=== PATIENT | female | born 1940 | race Caucasian/White ===

== ENCOUNTER 2016-10-06 14:27 | Inpatient (IN) | payer OTHER ==
[~2016-10-06] VITALS: Ht 165.1 cm; Wt 101.3 kg
[~2016-10-06 14:27] MED LIST: LRT5 PO
--- NOTE | 2016-10-06 14:59 | EMERGENCY ROOM VISIT NOTE ---
History Report prepared by Chuck: [place] Under the Supervision of: Dr. James Coto D.O. First contact with patient: 14:35 Chief Complaint: SHORTNESS OF BREATH Stated Complaint: SOB, DISCOMFORT REF BY DR CISNEROS Nursing Triage Summary: Triage Note: pt speaks primarly austrian. 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 daughters report they will assist pt with translating. pt agrees she wants daughters to translate for her. pt daughter reports pt was recently dx with a firbroid tumor and pt has ascitis. daughter reports pt is having increasing shortness of breath over the past 3 days. History of Present Illness The patient is a 76 year old female who presents to the Emergency Room with complaints of worsening shortness of breath starting 3 days ago. She also complains of some abdominal distention. She has worsening pain and symptoms with movement. She was recently diagnosed with ascites and uterine cancer. She had some fluid drained yesterday. The patient denies cough, chest pain, or any other complaints. She has chronic lower extremity swelling. The patient primarily speaks Scottish. HPI is obtained as per family member. Source of History: family Onset: 3 days ago Position: other (global) Quality: other (shortness of breath) Timing: worsening Modifying Factors (Worsening): movement Associated Symptoms: No chest pain, No cough Review of Systems See HPI for pertinent positives & negatives. A total of 10 systems reviewed and were otherwise negative. As per family. Past Medical & Surgical Medical Problems: (1) Ascites (2) Uterine cancer Surgical Problems: (1) H/O cataract removal with insertion of prosthetic lens Family History Patient reports no known family medical history. Social History Smoking Status: Never Smoker Marital Status: Occupation Status: retired Current/Historical Medications Scheduled Cyanocobalamin (B12), 1,000 MCG PO DAILY Docusate Sodium (Colace), 1 CAP PO BID Ergocalciferol (Vitamin D 54563 Unit), 50,000 UNIT PO WK Furosemide (Lasix), 20 MG PO DIRECTED Multiple Vitamins W/ Minerals (Multivitamin Adults), 1 TAB PO DAILY Potassium Ext Rel (Klor-Con), 10 MEQ PO DIRECTED Senna (Senna Lax), 1 TAB PO BID Scheduled PRN Meloxicam (Mobic), 7.5 MG PO DAILY PRN for Pain Polyethylene Glycol 3350 (Miralax), 17 GM PO DAILY PRN for Constipation Allergies Coded Allergies: Grapefruit (Verified Allergy, Mild, RASH, 10/06/16) Physical Exam Vital Signs Date Time Temp Pulse Resp B/P Pulse Ox O2 Delivery O2 Flow Rate FiO2 10/06/16 18:00 77 18 144/73 94 Room Air 10/06/16 17:10 92 Room Air 10/06/16 16:15 91 18 130/95 92 Room Air 10/06/16 14:32 36.3 102 20 121/85 92 Room Air Physical Exam GENERAL: Patient is awake, alert, and in no acute distress. Patient is resting comfortably and showing no signs of anxiety EYES: The conjunctivae are clear. The pupils are round and reactive. EARS, NOSE, MOUTH AND THROAT: The nose is without any evidence of any deformity. Mucous membranes are moist tongue is midline NECK: The neck is nontender and supple. RESPIRATORY: Normal respiratory effort is noted there is no evidence of wheezing rhonchi or rales CARDIOVASCULAR: Regular rate and rhythm noted there no murmurs rubs or gallops normal S1 normal S2 GASTROINTESTINAL: The abdomen is moderately distended but soft. Bowel sounds are present in all quadrants. Abdomen is nontender. There is no specific guarding or rigidity noted. MUSCULOSKELETAL/EXTREMITIES: There is no evidence of gross deformity full range of motion is noted in the hips and shoulders SKIN: There is no obvious evidence of any rash. There are no petechiae, pallor or cyanosis noted. NEUROLOGIC: Patient is at baseline according to family members. Medical Decision & Procedures ER Provider Diagnostic Interpretation: X-ray results as stated below per interpretation by me and the radiologist. TWO VIEW CHEST CLINICAL HISTORY: Generalized abdominal pain. FINDINGS: PA and lateral chest radiographs are compared to study dated 09/01/2008. The heart is mildly enlarged. The pulmonary vascular structures noncongested. Chronic interstitial thickening is similar to previous. There is left basilar scarring versus atelectasis. No airspace consolidation or pleural effusion is identified. There is no pneumothorax. The skeletal structures are osteopenic. Degenerative change is seen throughout the thoracic spine. IMPRESSION: Mild cardiac enlargement with no acute cardiopulmonary abnormality. Electronically signed by: Braydon Mace M.D. 10/06/2016 3:56 PM Dictated Date/Time: 10/06/2016 3:56 PM KUB CLINICAL HISTORY: Generalized abdominal pain COMPARISON STUDY: No previous studies for comparison. FINDINGS: There is no pathologic bowel dilatation. There are no calcification suspicious for urinary tract calculi. There is a lumbar dextroscoliosis. There are moderately advanced degenerative changes within the spine. There are moderately advanced degenerative changes in the right hip. IMPRESSION: 1. No evidence of pathologic bowel dilatation 2. No urinary tract calculi identified. Electronically signed by: Juancarlos Watkins M.D. 10/06/2016 3:57 PM Dictated Date/Time: 10/06/2016 3:57 PM Laboratory Results Test 10/06/16 00:00 10/06/16 15:25 Urine Color ORANGE Urine Appearance TURBID (CLEAR) Urine pH 5.0 (4.5-7.5) Urine Specific [place] 1.031 (1.000-1.030) Urine Protein 2+ (NEG) Urine Glucose (UA) NEG (NEG) Urine Ketones TRACE (NEG) Urine Occult Blood 3+ (NEG) Urine Nitrite POS (NEG) Urine Bilirubin NEG (NEG) Urine Urobilinogen NEG (NEG) Urine Leukocyte Esterase LARGE (NEG) Urine WBC (Auto) >30 /hpf (0-5) Urine RBC (Auto) >30 /hpf (0-4) Urine Hyaline Casts (Auto) 10-30 /lpf (0-5) Urine Epithelial Cells (Auto) >30 /lpf (0-5) Urine Bacteria (Auto) 1+ (NEG) Urine Crystals CALCIUM OXALATE (NONE Urine Pathogenic Casts 0-3 GRANULAR CASTS /lpf (0) Urine Yeast (Auto) PRESENT (NONE PRSENT) Immature Granulocyte % (Auto) 0.4 % White Blood Count 9.65 K/uL (4.8-10.8) Red Blood Count 5.08 M/uL (4.2-5.4) Hemoglobin 14.6 g/dL (12.0-16.0) Hematocrit 42.2 % (37-47) Mean Corpuscular Volume 83.1 fL (80-100) Mean Corpuscular Hemoglobin 28.7 pg (25-34) Mean Corpuscular Hemoglobin Concent 34.6 g/dl (32-36) Platelet Count 236 K/uL (130-400) Mean Platelet Volume 11.0 fL (7.4-10.4) Neutrophils (%) (Auto) 84.8 % Lymphocytes (%) (Auto) 8.9 % Monocytes (%) (Auto) 5.8 % Eosinophils (%) (Auto) 0.0 % Basophils (%) (Auto) 0.1 % Neutrophils # (Auto) 8.18 K/uL (1.4-6.5) Lymphocytes # (Auto) 0.86 K/uL (1.2-3.4) Monocytes # (Auto) 0.56 K/uL (0.11-0.59) Eosinophils # (Auto) 0.00 K/uL (0-0.5) Basophils # (Auto) 0.01 K/uL (0-0.2) Immature Granulocyte # (Auto) 0.04 K/uL (0.00-0.02) Prothrombin Time 10.7 SECONDS (9.0-12.0) Prothromb Time International Ratio 1.0 (0.9-1.1) Activated Partial Thromboplast Time 27.5 SECONDS (21.0-31.0) Partial Thromboplastin Ratio 1.1 Total Bilirubin 0.8 mg/dl (0.2-1) Direct Bilirubin 0.1 mg/dl (0-0.2) Aspartate Amino Transf (AST/SGOT) 14 U/L (15-37) Alanine Aminotransferase (ALT/SGPT) 21 U/L (12-78) Alkaline Phosphatase 87 U/L (45-117) Total Creatine Kinase 55 U/L (26-192) Creatine Kinase MB 1.8 ng/ml (0.5-3.6) Creatine Kinase MB Ratio 3.3 (0-3.0) Troponin I < 0.015 ng/ml (0-0.045) Total Protein 7.6 gm/dl (6.4-8.2) Albumin 3.5 gm/dl (3.4-5.0) Lipase 174 U/L (73-393) Laboratory results per my review. Medications Administered Medications (Trade) Dose Ordered Sig/Graciela Route Start Time Stop Time Status Last Admin Dose Admin Ceftriaxone Sodium (Rocephin Inj) 1 gm NOW STAT IV 10/06/16 16:37 10/06/16 16:38 DC 10/06/16 17:23 1 GM ECG Indication: SOB/dyspnea Rate (beats per minute): 93 Rhythm: normal sinus Findings: no ectopy, other (No acute ST segment abnormalities) Comparison ECG Date: September 01, 2008 Change: no significant change ED Course 1435: The patient was evaluated in room C01B. A complete history and physical examination were performed. 1637: Rocephin Inj 1 gm IV 1649: Upon reevaluation, the patient is resting comfortably. I discussed results and treatment plan with her. She verbalizes agreement and understanding. I spoke with Marissa Ingram PA-C of the [facility]. The patient will be evaluated for further management and care. Medical Decision Prior records/ancillary studies reviewed. Triage Nursing notes reviewed. History obtained from the family. The patient's history was concerning for respiratory difficulties. Differential diagnosis: Etiologies such as infections, reactive airway disease, pneumonia, pneumothorax , COPD, CHF, cardiac ischemia, pulmonary embolism, musculoskeletal, gastrointestinal, as well as others were entertained. The patient is a 76-year-old female who presented to the emergency department for an evaluation of abdominal discomfort. The patient has had slowly worsening ascites. This is felt to be due to a malignant uterine cancer with spread to the liver possibly. The patient had a diagnostic paracentesis recently but still remains in significant discomfort because of the abdominal size. The patient was also found have signs of urinary tract infection. She was sent to the emergency department by her primary care physician for possible admission and further management of this ascites. I discussed the patient's laboratory and radiographic studies with her and her family. I also discussed his case with the on-call [facility] hospitalist group. They have agreed to evaluate the patient in the emergency department for further management and disposition. Consults Time Called: 1647 Consulting Physician: Marissa Ingram PA-C of the [facility] Returned Call: 1648 I spoke with Marissa Ingram PA-C of the [facility]. Impression Primary Impression: Ascites Additional Impressions: Abdominal pain SOB (shortness of breath) UTI (urinary tract infection) Scribe Attestation The scribe's documentation has been prepared under my direction and personally reviewed by me in its entirety. I confirm that the note above accurately reflects all work, treatment, procedures, and medical decision making performed by me. Departure Information Dispostion Being Evaluated By Hospitalist Referrals Nelda Cisneros M.D. (PCP) Patient Instructions My [facility] Problem Qualifiers Primary Impression: Ascites Ascites type: malignant Qualified Codes: R18.0 - Malignant ascites Additional Impressions: Abdominal pain Abdominal location: generalized Qualified Codes: R10.84 - Generalized abdominal pain UTI (urinary tract infection) Urinary tract infection type: site unspecified Hematuria presence: without hematuria Qualified Codes: N39.0 - Urinary tract infection, site not specified
[2016-10-06 15:42] LABS: BASO % 0.1 %; BASO ABS # 0.01 K/uL (0-0.2); COMPLETE YES; HEMATOCRIT 42.2 % (37-47); IG% 0.4 %; LYMPH % 8.9 %; LYMPH ABS # 0.86 K/uL (1.2-3.4); MEAN CELL VOLUME 83.1 fL (80-100); MEAN CORPUSCULAR HEMOGLOBIN 28.7 pg (25-34); MEAN CORPUSCULAR HGB CONC 34.6 g/dl (32-36); MONO % 5.8 %; NEUT % 84.8 %; PLATELET COUNT 236 K/uL (130-400); RED BLOOD COUNT 5.08 M/uL (4.2-5.4); WHITE BLOOD COUNT 9.65 K/uL (4.8-10.8)
[2016-10-06 15:57] LABS: URINE APPEARANCE TURBID (CLEAR); URINE COLOR ORANGE; URINE EPITHELIAL CELL AUTO >30 /lpf (0-5); URINE NITRITE POS (NEG); URINE SPECIFIC GRAVITY 1.031 (1.000-1.030); UROBILINOGEN NEG (NEG)
[2016-10-06 15:57] LABS: PARTIAL THROMBOPLASTIN RATIO 1.1; PROTHROMBIN TIME (PATIENT) 10.7 SECONDS (9.0-12.0)
--- NOTE | 2016-10-06 15:58 | DIAGNOSTIC IMAGING REPORT ---
TWO VIEW CHEST CLINICAL HISTORY: Generalized abdominal pain. FINDINGS: PA and lateral chest radiographs are compared to study dated 09/01/2008. The heart is mildly enlarged. The pulmonary vascular structures noncongested. Chronic interstitial thickening is similar to previous. There is left basilar scarring versus atelectasis. No airspace consolidation or pleural effusion is identified. There is no pneumothorax. The skeletal structures are osteopenic. Degenerative change is seen throughout the thoracic spine. IMPRESSION: Mild cardiac enlargement with no acute cardiopulmonary abnormality. Electronically signed by: Braydon Mace M.D. 10/06/2016 3:56 PM Dictated Date/Time: 10/06/2016 3:56 PM
[2016-10-06 15:59] LABS: ALT/SGPT 21 U/L (12-78); BLOOD UREA NITROGEN 15 mg/dl (7-18); CALCIUM 9.1 mg/dl (8.5-10.1); CARBON DIOXIDE 22 mmol/L (21-32); CHLORIDE 108 mmol/L (98-107); GLUCOSE 122 mg/dl (70-99); POTASSIUM 3.9 mmol/L (3.5-5.1); SODIUM 140 mmol/L (136-145)
--- NOTE | 2016-10-06 15:59 | DIAGNOSTIC IMAGING REPORT ---
KUB CLINICAL HISTORY: Generalized abdominal pain COMPARISON STUDY: No previous studies for comparison. FINDINGS: There is no pathologic bowel dilatation. There are no calcification suspicious for urinary tract calculi. There is a lumbar dextroscoliosis. There are moderately advanced degenerative changes within the spine. There are moderately advanced degenerative changes in the right hip. IMPRESSION: 1. No evidence of pathologic bowel dilatation 2. No urinary tract calculi identified. Electronically signed by: Juancarlos Watkins M.D. 10/06/2016 3:57 PM Dictated Date/Time: 10/06/2016 3:57 PM
[2016-10-06 16:04] LABS: ALKALINE PHOSPHATASE 87 U/L (45-117); AST/SGOT 14 U/L (15-37); CKMB/CK RATIO 3.3 (0-3.0)
[2016-10-06] MEDS ORDERED: FURO-85 PO (16:05)
[2016-10-06] MEDS ORDERED: POTA20TA16 PO (16:05)
[2016-10-06] MEDS ORDERED: ERGO500037 PO (16:05)
[2016-10-06 16:23] LABS: MANUAL MICROSCOPIC REQUIRED? NO; REVIEW REQ? YES; URINE BILIRUBIN NEG (NEG)
[2016-10-06 16:24] LABS: URINE PATH CASTS 0-3 GRANULAR CASTS /lpf (0)
[2016-10-06] MEDS ORDERED: CEFTRIAXONE SOD INJ 1 GM ADDVIAL IV STA (16:37)
[2016-10-06 17:10] VITALS: O2SAT 92; Ht 165.1 cm; Wt 101.3 kg
[2016-10-06] MEDS ORDERED: OXYCODONE/ACETAMINOPHEN 5-325 TAB PO PRN (18:15)
[2016-10-06] MEDS ORDERED: SODIUM CHLORIDE 0.9% 1000ML 1,000 ML IV SCH (18:15)
[2016-10-06] MEDS ORDERED: ACETAMINOPHEN 325 MG TAB PO PRN (18:15)
[2016-10-06] MEDS ORDERED: ONDANSETRON INJ 2 MG/ML 2 ML VIAL IV PRN (18:15)
[2016-10-06] MEDS ORDERED: MoRPHine SULFATE 4 MG/ML 1 ML CARP\\VIAL IV PRN (18:15)
[2016-10-06] MEDS ORDERED: MULT-922 PO (18:40)
[2016-10-06] MEDS ORDERED: DOCU-94 PO ×2 (18:40→18:42)
[2016-10-06] MEDS ORDERED: MELO15TA4 PO (18:40)
[2016-10-06] MEDS ORDERED: CYAN100073 PO (18:40)
[2016-10-06] MEDS ORDERED: SNK PO (18:40)
[2016-10-06] MEDS ORDERED: POLY335025 PO (18:40)
--- NOTE | 2016-10-06 18:43 | History and Physical ---
History & Physical Date & Time of Service: Oct 06, 2016 at 18:11 Chief Complaint: Sob, Discomfort Ref By Dr Cisneros Primary Care Physician: Nelda Cisneros M.D. History of Present Illness Source: patient This is a 76 y/o female with PMHx as outlined below who presents to the ED c/o worsening SOB x 3 days. History is obtained from daughter at bedside as patient does not speak Peruvian. Per daughter, patient has had abdominal pain and distention for the past month. The pain is described as diffuse 9/10 abdominal pain that is aggravated with movement. No position is comfortable and patient cannot get relief. A recent CT abd/pelvis from 09/28 showed large ascites and a concern for endometrial cancer. Patient had a biopsy completed however it was inadequate for diagnosis. A diagnostic paracentesis was performed yesterday which drained 60 cc of fluid. Patient has become more and more SOB over the past few days which prompted family to bring her back to the ED today. Pt denies fever/chills, diaphoresis, chest pain, palpitations, wheezing, N/V, bowel or bladder issues, LE edema, calf pain, lightheadedness/dizziness. In the ED, vitals are stable. Pt is afebrile with no leukocytosis. Creat 1.5. UA 1+ bacteria and + nitrites. KUB no bowel obstruction. Pt is stable and appears comfortable. She will be admitted for further evaluation and treatment. Past Medical/Surgical History Medical Problems: (1) Ascites Status: Chronic (2) Uterine cancer Status: Chronic Surgical Problems: (1) H/O cataract removal with insertion of prosthetic lens Status: Resolved Family History Patient reports no known family medical history. Social History Smoking Status: Never Smoker Alcohol Use: none Drug Use: none Marital Status: Housing status: lives with family Occupational Status: retired Allergies Coded Allergies: Grapefruit (Verified Allergy, Mild, RASH, 10/06/16) Home Medications Scheduled Cyanocobalamin (B12), 1,000 MCG PO DAILY Docusate Sodium (Colace), 1 CAP PO BID Ergocalciferol (Vitamin D 49731 Unit), 50,000 UNIT PO WK Furosemide (Lasix), 20 MG PO DIRECTED Multiple Vitamins W/ Minerals (Multivitamin Adults), 1 TAB PO DAILY Potassium Ext Rel (Klor-Con), 10 MEQ PO DIRECTED Senna (Senna Lax), 1 TAB PO BID Scheduled PRN Meloxicam (Mobic), 7.5 MG PO DAILY PRN for Pain Polyethylene Glycol 3350 (Miralax), 17 GM PO DAILY PRN for Constipation Review of Systems Constitutional: + fatigue, + weakness, No chills, No fever, No sweats Eyes: No worsening of vision ENT: No hearing loss Respiratory: + dyspnea on exertion, + shortness of breath, No cough, No dyspnea at rest Cardiovascular: No chest pain, No claudication, No edema, No palpitations Abdomen: + pain, No GI bleeding, No constipation, No diarrhea, No nausea, No vomiting Musculoskeletal: No calf pain, No swelling Genitourinary - Female: No dysuria Neurologic: No weakness Psychiatric: No depression symptoms Endocrine: + fatigue Hematologic / Lymphatic: No abnormal bleeding/bruising Integumentary: No new/changing skin lesions Physical Exam Vital Signs Date Time Temp Pulse Resp B/P Pulse Ox O2 Delivery O2 Flow Rate FiO2 10/06/16 16:15 91 18 130/95 92 Room Air 10/06/16 14:32 36.3 102 20 121/85 92 Room Air General Appearance: WD/WN, no apparent distress, + pertinent finding (Pt is laying in bed with daughter at bedside ) Head: normocephalic, atraumatic Eyes: normal inspection ENT: hearing grossly normal Neck: supple Respiratory/Chest: chest non-tender, lungs clear, normal breath sounds, no respiratory distress Cardiovascular: regular rate, rhythm, no edema, no murmur Abdomen/GI: normal bowel sounds, non tender, + distended Back: normal inspection Extremities/Musculoskelatal: normal inspection, no calf tenderness, no pedal edema Neurologic/Psych: alert, normal mood/affect, oriented x 3 Skin: normal color, warm/dry Diagnostics Laboratory Results Results Past 24 Hours Test 10/06/16 00:00 10/06/16 15:25 Range/Units Urine Color ORANGE Urine Appearance TURBID CLEAR Urine pH 5.0 4.5-7.5 Urine Specific [place] 1.031 1.000-1.030 Urine Protein 2+ NEG Urine Glucose (UA) NEG NEG Urine Ketones TRACE NEG Urine Occult Blood 3+ NEG Urine Nitrite POS NEG Urine Bilirubin NEG NEG Urine Urobilinogen NEG NEG Urine Leukocyte Esterase LARGE NEG Urine WBC (Auto) >30 0-5 /hpf Urine RBC (Auto) >30 0-4 /hpf Urine Hyaline Casts (Auto) 10-30 0-5 /lpf Urine Epithelial Cells (Auto) >30 0-5 /lpf Urine Bacteria (Auto) 1+ NEG Urine Crystals CALCIUM OXALATE NONE PRSENT Urine Pathogenic Casts 0-3 GRANULAR CASTS 0 /lpf Urine Yeast (Auto) PRESENT NONE PRSENT White Blood Count 9.65 4.8-10.8 K/uL Red Blood Count 5.08 4.2-5.4 M/uL Hemoglobin 14.6 12.0-16.0 g/dL Hematocrit 42.2 37-47 % Mean Corpuscular Volume 83.1 80-100 fL Mean Corpuscular Hemoglobin 28.7 25-34 pg Mean Corpuscular Hemoglobin Concent 34.6 32-36 g/dl Platelet Count 236 130-400 K/uL Mean Platelet Volume 11.0 7.4-10.4 fL Neutrophils (%) (Auto) 84.8 % Lymphocytes (%) (Auto) 8.9 % Monocytes (%) (Auto) 5.8 % Eosinophils (%) (Auto) 0.0 % Basophils (%) (Auto) 0.1 % Neutrophils # (Auto) 8.18 1.4-6.5 K/uL Lymphocytes # (Auto) 0.86 1.2-3.4 K/uL Monocytes # (Auto) 0.56 0.11-0.59 K/uL Eosinophils # (Auto) 0.00 0-0.5 K/uL Basophils # (Auto) 0.01 0-0.2 K/uL RDW Standard Deviation 40.2 36.4-46.3 fL RDW Coefficient of Variation 13.3 11.5-14.5 % Immature Granulocyte % (Auto) 0.4 % Immature Granulocyte # (Auto) 0.04 0.00-0.02 K/uL Prothrombin Time 10.7 9.0-12.0 SECONDS Prothromb Time International Ratio 1.0 0.9-1.1 Activated Partial Thromboplast Time 27.5 21.0-31.0 SECONDS Partial Thromboplastin Ratio 1.1 Sodium Level 140 136-145 mmol/L Potassium Level 3.9 3.5-5.1 mmol/L Chloride Level 108 98-107 mmol/L Carbon Dioxide Level 22 21-32 mmol/L Anion Gap 10.0 3-11 mmol/L Blood Urea Nitrogen 15 7-18 mg/dl Creatinine 1.50 0.60-1.20 mg/dl Est Creatinine Clear Calc Drug Dose 38.5 ml/min Estimated GFR () 39.4 Estimated GFR (Non- 34.0 BUN/Creatinine Ratio 10.0 10-20 Random Glucose 122 70-99 mg/dl Calcium Level 9.1 8.5-10.1 mg/dl Total Bilirubin 0.8 0.2-1 mg/dl Direct Bilirubin 0.1 0-0.2 mg/dl Aspartate Amino Transf (AST/SGOT) 14 15-37 U/L Alanine Aminotransferase (ALT/SGPT) 21 12-78 U/L Alkaline Phosphatase 87 45-117 U/L Total Creatine Kinase 55 26-192 U/L Creatine Kinase MB 1.8 0.5-3.6 ng/ml Creatine Kinase MB Ratio 3.3 0-3.0 Troponin I < 0.015 0-0.045 ng/ml Total Protein 7.6 6.4-8.2 gm/dl Albumin 3.5 3.4-5.0 gm/dl Lipase 174 73-393 U/L Diagnostic Radiology CXR IMPRESSION: Mild cardiac enlargement with no acute cardiopulmonary abnormality KUB IMPRESSION: 1. No evidence of pathologic bowel dilatation 2. No urinary tract calculi identified. EKG EKG: NSR at 93 bpm with nonspec T wave abnormalities; no significant change when compared to EKG from 09/01/08 Impression Assessment and Plan ABDOMINAL PAIN/ASCITES pt presents with abd pain and distention -admit to med/surg -possible exudative ascites due to uterine cancer -low suspicion for SBP as patient is afebrile with no leukocytosis -obtain CT abd/pelvis to evaluate ascites -start Percocet and morphine PRN pain -possible paracentesis -monitor KATH -creatinine is 1.5 (baseline 1.0) -give 1 L gentle IVF -hold Lasix -monitor with daily prp and avoid nephrotoxic agents when able UTI -UA 1+ bacteria and + nitrites -start gentle IVF and empiric Rocephin -pt denies urinary sxs UTERINE CA -CT abd/pelvis 09/28/16 concerning for endometrial CA -biopsy was inadequate for diagnosis -currently following with gynecology, Dr. Saturnino Vega -consult gynecology, Dr. Kiran-pending input DVT PROPHYLAXIS -subq Lovenox CODE STATUS -FULL CODE status DISPO Pt seen in collaboration with Dr. Hurtado. Please see his addendum for further details. Thanks! ATTENDING ADDENDUM care coordinated with WALLACE Ingram please refer to her notes for full details, I agree with her notes patient seen and examined, records reviewed by myself as well on exam, patient seen resting in bed, not in distress patient's daughter at bedside translating reports back pain and generalized abdominal discomfort worse with moving no active shortness of breath, chest pain, nausea denies other symptoms VS noted and reviewed oriented x3 , not in distress, speaks i with no effort nor accessory muscle use normal rate, regular rhythm, no murmurs clear breath sounds bilaterally moderately distended, normal bowel sounds, soft, nontender mild lower leg edema, erythema, warmth no neuro deficits WBC 9.6 Crea 1.5 KUB: no signs of obstruction ASSESSMENT/PLAN> ABDOMINAL DISTENTION, ASCITES, SUSPECTED UTERINE CA, HEPATIC LESIONS CT abdomen/pelvis may benefit from therapeutic paracentesis for symptom relief PRN Percocet, Morphine ACUTE RENAL FAILURE likely pre renal from poor oral intake baseline 1.0 , now 1.5 CT abdomen/pelvis to r/o obstruction gentle IV fluids discussed plan of care extensively with patient's daughter Kae and upon her request, to her friend Faustino they were requesting transfer to [facility], but per ER stafff, they are not accepting patients at this time also requested transfer to [place], verified with [facility], patient would be required to shoulder transport expenses, patient's daughter decided to have patient admitted here case and plan of care discussed in detail with patient's daughter and friend Faustino, all questions answered and they are agreeable and comfortable with plan of care other diagnoses and plan of care as per WALLACE Ingram's notes Devin Hurtado MD VTE Prophylaxis VTE Risk Assessment Done? Y/N: Yes Risk Level: Moderate
[2016-10-06] MEDS ORDERED: POLYETHYLENE (MIRALAX) 17 GM PACK PO PRN (18:45)
--- NOTE | 2016-10-06 20:18 | DIAGNOSTIC IMAGING REPORT ---
CT SCAN OF THE ABDOMEN AND PELVIS WITHOUT CONTRAST CLINICAL HISTORY: Ascites. Abdominal pain. COMPARISON STUDY: 09/22/2008 TECHNIQUE: CT scan of the abdomen and pelvis was performed from the lung bases to the proximal femurs. Images are reviewed in the axial, sagittal, and coronal planes. IV contrast was not administered for this examination. CT DOSE: 1199.10 mGy.cm FINDINGS: Lower chest: The heart is normal in size and configuration, without pericardial effusion. The lung bases and pleural spaces are clear. Liver: There is a stable 9 mm hypodensity within the right lobe of the liver, likely representing a cyst. Gallbladder: Unremarkable. Spleen: There is a superior splenic cleft, unchanged from 2008. No splenic masses are visualized. The spleen is borderline enlarged measuring 12 cm in length. Pancreas: The pancreas is atrophic. No masses are visualized Adrenal glands: Unremarkable. Kidneys: No renal calculi are visualized. There are multiple right renal cysts measuring up to 37 mm in diameter. Bowel: There are no transition zones indicate bowel obstruction. Peritoneum: There is moderate to large volume ascites. There is mild edema/infiltration of the omentum. Vasculature: The abdominal aorta is normal in course and caliber. Adenopathy: None. Pelvic viscera: There is mild endometrial thickening. No bladder abnormalities are visualized. Skeletal structures: No destructive osseous lesions are seen. IMPRESSION: 1. No renal, ureteral, or bladder calculi identified 2. No evidence of bowel obstruction. No evidence of free air 3. Mild endometrial thickening, similar to 2009. 4. Moderate to large volume ascites 5. Borderline splenomegaly Electronically signed by: Juancarlos Watkins M.D. 10/06/2016 8:16 PM Dictated Date/Time: 10/06/2016 8:05 PM
[2016-10-06] MEDS ORDERED: ENOXAPARIN 40 MG/0.4 ML SYR SQ SCH (21:00)
[2016-10-06 21:32] VITALS: O2SAT 94
[2016-10-06 21:50] VITALS: BP 135/83; PULSE 78; TEMP 36.8; O2SAT 94
[2016-10-06] MEDS: DOCUSATE SODIUM 100 MG CAP PO SCH (22:28)
[2016-10-06] MEDS: SENNA 8.6 MG TAB PO SCH (22:29)
[2016-10-07 00:15] VITALS: BP 111/71; PULSE 92; TEMP 36.4; O2SAT 93
[2016-10-07 07:24] LABS: MEAN CELL VOLUME 84.5 fL (80-100); MEAN CORPUSCULAR HEMOGLOBIN 28.3 pg (25-34); MEAN CORPUSCULAR HGB CONC 33.5 g/dl (32-36); PLATELET COUNT 165 K/uL (130-400); RED BLOOD COUNT 4.38 M/uL (4.2-5.4); WHITE BLOOD COUNT 5.46 K/uL (4.8-10.8)
--- NOTE | 2016-10-07 07:41 | OB/GYN Progress Note ---
SYSTEMS CONSULTANT Progress Note Date of Service: Oct 07, 2016. ASSET MANAGER CONSULT HPI: Patient is a 76 yo Martiniqu[place] female who was admitted last night for ongoing ascites and discomfort She is known to me from office I saw her with her daughters on 10/03 for above and thickened endometrium per CT scan She has been c/o abdominal swelling and bloatedness and had CT of abdomen and pelvis on 09/28/16: ABDOMEN/PELVIS: LIVER: There is a 14 mm lesion in segment 4A of the liver. There is a 2nd 14 mm lesion in segment 6 of the liver. GALLBLADDER: Unremarkable BILE DUCTS: Unremarkable PANCREAS: Unremarkable SPLEEN: Unremarkable ADRENALS: Unremarkable KIDNEYS/URETERS: Simple cyst in the right kidney BLADDER: Unremarkable REPRODUCTIVE ORGANS: There is thickening of the endometrial stripe BOWEL: Unremarkable VESSELS: No aortic aneurysm LYMPH/NODES/PERITONEUM/RETROPERITONEUM : There is marked abdominopelvic ascites. There is irregularity of the omentum. BONES/ABDOMINAL WALL/SOFT TISSUES: No suspicious lesions IMPRESSION Suspicion of possible endometrial carcinoma with associated ascites and omental irregularity. Two indeterminate hepatic lesions. This can be evaluated with a nonemergent MRI , after resolution of the Ascites. She was referred to us for endometrial biopsy. She had pelvis US today: Pelvic ascites, uterus 6.15x4.12x3 cm, endometrium is fluid filled, 4 mm Her daughters translate for her. She has no grain oilseed or pasture farm worker complaints. She has not been to grain oilseed or pasture farm worker for many years. She has yusuf postmenopausal since age 52, never had PMB/Spotting or d/c Never used hormones for 17 years. We discussed the findings recommended grain oilseed or pasture farm worker work up with Breast exam, MG, Pelvic exam, pap smear and endometrial biopsy on 10/03. She accepted and signed the consent for endometrial biopsy. We competed the biopsy in the office which was limited by stenotic cervix. The results were insufficient. I recommended to come back after she uses Cytotec intravaginally to retry endometrial biopsy in the office. She had ascited tapped on 10/05 at Radiology at [facility].It was diagnostic only. The patient did not get much relief.And she came here. Current Outpatient Prescriptions Medication Sig Dispense Refill Cholecalciferol (VITAMIN D3) 01856 UNITS Capsule Take 1 Cap by mouth once a week for 90 days. 12 Cap 1 furosemide (LASIX) 20 MG Tablet Take 1 Tab by mouth daily as needed for Other (leg swelling). 3 times a week 30 Tab 11 potassium chloride ER 10 MEQ TBCR Take 1 Tab by mouth daily as needed for Other (along with lasix). 3 times a week along with lasix 30 Tab 11 Cyanocobalamin (B-12) 1000 MCG Capsule Take 1 Cap by mouth daily. docusate sodium (COLACE) 100 MG Capsule Take 1 Cap by mouth 2 times a day. 60 Cap 11 senna (SENNA LAX) Tablet Take 1 Tab by mouth 2 times a day. polyethylene glycol 3350 (MIRALAX) 255 gram powder Take 17 g by mouth as needed for Constipation. Dissolve one heaping tablespoon in 8 ounces of water or juice. 1 Bottle 2 Meloxicam (MOBIC) 7.5 MG Tablet Take 1 Tab by mouth daily. for pain. 30 Tab 5 multivitamin (MVI) Tablet Take 1 Tab by mouth daily. Misc. Devices (JENSEN ROLLING WALKER) MISC Daily 1 Each 0 Past Medical History Diagnosis Date Bunion Cataract 2013 DDD (degenerative disc disease), lumbar Hiatal hernia HTN, goal below 150/90 on COzaar and HCTZ in past Imbalance Past Surgical History Procedure Laterality Date Remove cataract, insert lens prosth 2012 Review of patient's allergies indicates: No Known Allergies Family History Problem Relation Age of Onset No Past Hx None Family Status Relation Status None Social History Social History Marital status: Spouse name: N/A Number of children: N/A Years of education: N/A Occupational History Not on file. Social History Main Topics Smoking status: Never Smoker Smokeless tobacco: Never Used Alcohol use No Drug use: No Sexual activity: No Other Topics Concern Not on file Social History Narrative ROS: Constitutional: No fatigue, no fever/chills, no night sweats HEENT: No headaches Breasts: No new breast lumps or masses, no pain or discomfort, no nipple discharge, no recent change in shape/color Pulmonary: No cough, no dyspnea Cardiovascular: No chest pain, no shortness of breath Gastrointestinal: + bloatedness, unable to eat, no nausea, vomiting, diarrhea, or constipation. Urinary: no pelvic pain/discomfort, no dysuria, no urgency or frequency, Genital: no vaginal discharge, pruritis or odor, no lesions or irritation Psych: No anxiety or depression OBJECTIVE: Physical Exam: BP 140/80 | Ht 5' 5" (1.651m) | Wt 227 lbs (102.967kg) | BMI 37.77 kg/m | BSA 2.17 m General: awake, alert, and oriented x 3, NAD Skin: color, texture, turgor normal, no rashes or lesions Head: normocephalic, atraumatic Neck: supple, no lymphadenopathy, thyroid normal size, non-tender, without nodularity Cardiac: regular rate and rhythm Lungs: clear to auscultation Abdomen: significantly distended with ascites, soft, non-tender, normal bowel sounds, no masses or organomegaly Extremities: no edema Neuro: no focal motor/sensory deficits Breasts: no nipple retraction or dimpling, no nipple discharge or bleeding, no axillary or supraclavicular lymphadenopathy, normal to palpation without dominant masses Pelvic: done on 10/03 and deferred today Assessment: 76 yo postmenopausal female with significant ascites, fluid filled endometrium, stenotic cervix, endometrial biopsy completed on 10/03 but insufficient for diagnosis Her endometrium was not significantly thickened. It was 4mm and fluid filled which might be from cervical stenosis It is very unlikely that she has endometrial cancer and ascites from it I recommend work up her ascites for other possible etiologies Recommend repeat endometrial biopsy after she uses intravaginal cytotec which helps to soften cervix and help for dilatation Thank you
[2016-10-07 07:55] LABS: CREATININE 0.84 mg/dl (0.60-1.20)
[2016-10-07 07:56] LABS: BUN/CREATININE RATIO 15.1 (10-20); CALCIUM 8.2 mg/dl (8.5-10.1); POTASSIUM 3.6 mmol/L (3.5-5.1)
[2016-10-07] MEDS ORDERED: CYANOCOBALAMIN 500 MCG TAB (VIT B-12) PO SCH ×2 (08:00→09:00)
[2016-10-07] MEDS ORDERED: CEROVITE ADV FORMULA TAB PO SCH (08:00)
[2016-10-07 08:02] VITALS: BP 123/84; PULSE 79; TEMP 36.7; O2SAT 92
[2016-10-07] MEDS: SENNA 8.6 MG TAB PO SCH (08:39)
[2016-10-07] MEDS: DOCUSATE SODIUM 100 MG CAP PO SCH (08:40)
--- NOTE | 2016-10-07 10:22 | DIAGNOSTIC IMAGING REPORT ---
ULTRASOUND GUIDED DIAGNOSTIC AND THERAPEUTIC PARACENTESIS CLINICAL HISTORY: Significant ascites, abdominal pain COMPARISON STUDY: CT of the abdomen and pelvis October 06, 2016. PROCEDURE: The risks, benefits, and alternatives to the procedure were discussed with the patient including the risk of bleeding, infection and injury to adjacent structures. The patient agreed to the procedure and informed written consent was obtained. Following real-time ultrasound localization, the skin of the left lower quadrant was prepped and draped. Following local anesthesia with Xylocaine, the sheath paracentesis needle was inserted and approximately 5.2 liters of straw-colored fluid was removed by vacuum suction. The patient tolerated the procedure well and no immediate complications were evident. IMPRESSION: Ultrasound-guided diagnostic and therapeutic paracentesis with removal of 5.2 liters of ascites. 1 L of fluid was sent to the laboratory for analysis. Electronically signed by: Gonzalo Enamorado M.D. 10/07/2016 10:21 AM Dictated Date/Time: 10/07/2016 10:19 AM
[2016-10-07 10:37] VITALS: BP 150/69; PULSE 66; TEMP 36.7; O2SAT 96
[2016-10-07 11:18] LABS: PERIT FL WBC 498 /uL (0-300); PERITONEAL FLUID RBC < 3000 /uL
[2016-10-07 15:09] VITALS: BP 104/67; PULSE 64; TEMP 36.7; O2SAT 93
[2016-10-07] MEDS ORDERED: CEFTRIAXONE SOD INJ 1 GM in DEXTROSE 5% ADD-VANTAGE 50ML 50 ML IV SCH (18:00)
--- NOTE | 2016-10-07 19:11 | Progress Note ---
Subjective Date of Service: Oct 07, 2016. Subjective Pt evaluation today including: conversation w/ patient, physical exam, lab review, review of studies, review of inpatient medication list Saw/examined the patient in room 423 No problems/issues today after her paracentesis She had her dinner with no problems Very anxious and eager to go home Problem List Medical Problems: (1) Abdominal pain Status: Acute (2) Ascites Status: Chronic (3) SOB (shortness of breath) Status: Acute (4) UTI (urinary tract infection) Status: Acute Review of Systems Abdomen: + pain (improved), No constipation, No diarrhea, No nausea, No vomiting Medications Current Inpatient Medications Medications (Trade) Dose Ordered Sig/Graciela Route Start Time Stop Time Status Last Admin Dose Admin Acetaminophen (Tylenol Tab) 650 mg Q4H PRN PO 10/06/16 18:15 11/05/16 18:14 Ondansetron HCl (Zofran Inj) 4 mg Q6H PRN IV 10/06/16 18:15 11/05/16 18:14 Oxycodone/ Acetaminophen (Percocet 5-325mg Tab) 1 tab Q4H PRN PO 10/06/16 18:15 10/20/16 18:14 Morphine Sulfate 3 mg 3 mg Q4 PRN IV 10/06/16 18:15 10/20/16 18:14 Ceftriaxone Sodium/Dextrose (Rocephin Inj/ Dextrose Add-Wolverine 50ML) 50 ml @ 100 mls/hr Q24H IV 10/07/16 18:00 10/11/16 17:59 Ergocalciferol (Vitamin D Cap) 50,000 interunit Fr@0900 PO 10/13/16 09:00 11/12/16 08:59 Multivitamins/ Minerals (Multivitamin W/ Minerals Tab) 1 tab DAILY PO 10/07/16 08:00 11/06/16 08:59 10/07/16 08:41 1 TAB Polyethylene (Miralax Powder Packet) 17 gm DAILY PRN PO 10/06/16 18:45 11/05/16 18:44 Senna (Senokot Tab) 8.6 mg BID PO 10/06/16 21:00 11/05/16 20:59 10/07/16 08:39 8.6 MG Docusate Sodium (coLACE CAP) 100 mg BID PO 10/06/16 21:00 11/05/16 20:59 10/07/16 08:40 100 MG Cyanocobalamin (Vitamin B-12 Tab) 1,000 mcg DAILY PO 10/07/16 08:00 11/06/16 08:59 10/07/16 08:40 1,000 MCG Objective Vital Signs Date Time Temp Pulse Resp B/P Pulse Ox O2 Delivery O2 Flow Rate FiO2 10/07/16 15:09 36.7 64 20 104/67 93 Room Air 10/07/16 10:37 36.7 66 20 150/69 96 Nasal Cannula 10/07/16 08:02 36.7 79 20 123/84 92 Room Air 10/07/16 08:00 Room Air 10/07/16 00:15 36.4 92 20 111/71 93 Room Air 10/07/16 00:00 Room Air 10/06/16 21:50 36.8 78 18 135/83 94 Room Air 10/06/16 21:50 Room Air 10/06/16 21:32 76 18 154/79 94 Room Air 10/06/16 19:55 80 18 151/81 92 Room Air Physical Exam General Appearance: no apparent distress, + obese Respiratory/Chest: no respiratory distress, no accessory muscle use Cardiovascular: regular rate, rhythm, no edema, no murmur Abdomen: normal bowel sounds, non tender (minimally tender around umbilicus), soft, + hernia Neurologic/Psychiatric: no motor/sensory deficits, alert, normal mood/affect Laboratory Results Last 24 Hours Test 10/07/16 00:00 10/07/16 07:05 Peritoneal Fluid Color YELLOW Peritoneal Fluid Appearance CLEAR Peritoneal Fluid WBC 498 /uL Peritoneal Fluid RBC < 3000 /uL Peritoneal Fld Mononuclear WBCs (%) 89.2 % Peritoneal Fld Polynuclear WBCs (%) 10.8 % Peritoneal Fluid Total Protein 4.2 g/dl Peritoneal Fluid Albumin 2.7 g/dl Peritoneal Fluid LDH 221 IU Peritoneal Fluid Glucose 95 mg/dl Peritoneal Fluid Amylase 10 U/L Peritoneal Fluid Lipase 54 U/L Peritoneal Fluid Triglycerides 43 mg/dl White Blood Count 5.46 K/uL Red Blood Count 4.38 M/uL Hemoglobin 12.4 g/dL Hematocrit 37.0 % Mean Corpuscular Volume 84.5 fL Mean Corpuscular Hemoglobin 28.3 pg Mean Corpuscular Hemoglobin Concent 33.5 g/dl RDW Standard Deviation 41.6 fL RDW Coefficient of Variation 13.4 % Platelet Count 165 K/uL Mean Platelet Volume 11.0 fL Sodium Level 143 mmol/L Potassium Level 3.6 mmol/L Chloride Level 112 mmol/L Carbon Dioxide Level 24 mmol/L Anion Gap 7.0 mmol/L Blood Urea Nitrogen 13 mg/dl Creatinine 0.84 mg/dl Est Creatinine Clear Calc Drug Dose 69.3 ml/min Estimated GFR () 79.4 Estimated GFR (Non- 68.5 BUN/Creatinine Ratio 15.1 Random Glucose 111 mg/dl Calcium Level 8.2 mg/dl Assessment and Plan This is a 76 year old female with PMH of uterine fibroids, unsure of uterine cancer presents with abdominal pain, found to have moderate to large ascites Moderate/Large Ascites s/p Paracentesis; 5L removed therapeutic and diagnostic tap Elevated WBC, but no SBP SAAG < 1.1; possible malignancy related? No antibiotics for ascites outpatient f/u on pathology with PCP will d/c with 20mg of PO Lasix Hx.of Uterine Fibroids Endometrial Thickening appreciate lime kiln worker consultation outpatient biopsy recommended at this time UTI urine culture pending PCP should f/u with culture will d/c home with 3 days of Cipro Acute Kidney Injury creat on admission 1.5 likely related to decreased PO intake due to ascites given fluids, and creat normalized stopped IVFs improved PO intake for dinner post paracentesis DVT ppx SCDs FULL CODE
[2016-10-07] MEDS ORDERED: FURO-85 PO (19:15)
[2016-10-07] MEDS ORDERED: CIPR-255 PO (19:15)
--- NOTE | 2016-10-07 19:17 | Discharge Instructions ---
Discharge Instructions Date of Service Oct 07, 2016. Admission Reason for Admission: Ascities Discharge Discharge Diagnosis / Problem: Ascites s/p paracentesis Discharge Goals Goal(s): Decrease discomfort, Improve function, Diagnostic testing, Therapeutic intervention Activity Recommendations Activity Limitations: resume your previous activity . Instructions / Follow-Up Instructions / Follow-Up Please follow-up with your primary care physician - you will get a phone call with a date and time * Take Cipro (antibiotic) twice a day for three days for a UTI * Take Lasix - which is a water pill - every day * PCP should f/u with paracentesis pathology * F/u with frankfurter inspector for possible biopsy Current Hospital Diet Patient's current hospital diet: Low Sodium Diet (2gm Na) Discharge Diet Recommended Diet: Low Sodium Diet (2gm Na) Pending Studies Studies pending at discharge: no Medical Emergencies . Who to Call and When: Medical Emergencies: If at any time you feel your situation is an emergency, please call 911 immediately. . Non-Emergent Contact Non-Emergency issues call your: Primary Care Provider . . "Provider Documentation" section prepared by Rosa M Del Cid. VTE Core Measure Inpt VTE Proph given/why not?: SCD's
--- NOTE | 2016-10-07 19:18 | Discharge Summary ---
Discharge Summary Date of Service Oct 07, 2016. Discharge Summary Admission Date: Oct 06, 2016 at 18:04 Discharge Date: Oct 07, 2016 Discharge Disposition: Home Principal Diagnosis: Ascites s/p paracentesis Medication Reconciliation New Medications: Ciprofloxacin Hcl (Cipro) 500 Mg Tab 500 MG PO BID for 3 Days, #6 TAB Changed Medications: Furosemide (Lasix) 20 Mg Tab 20 MG PO DAILY for 30 Days, #30 TAB (Changed from: DIRECTED; Removed Instructions) Continued Medications: Cyanocobalamin (B12) 1,000 Mcg Tab 1000 MCG PO DAILY Docusate Sodium (Colace) 100 Mg Cap 1 CAP PO BID for 15 Days, #30 CAP Ergocalciferol (Vitamin D 41218 Unit) 50,000 Unit Cap 52166 UNIT PO WK, CAP Meloxicam (Mobic) 15 Mg Tab 7.5 MG PO DAILY PRN for Pain, TAB Multiple Vitamins W/ Minerals (Multivitamin Adults) 1 Tab Tab 1 TAB PO DAILY Polyethylene Glycol 3350 (Miralax) 1 Pow Pow 17 GM PO DAILY PRN for Constipation Potassium Ext Rel (Klor-Con) 20 Meq Tabcr 10 MEQ PO DIRECTED, TAB TAKE 3 X WEEKLY NEEDED. Senna (Senna Lax) 8.6 Mg Tab 1 TAB PO BID Admission Information HPI (per Admitting provider): This is a 76 y/o female with PMHx as outlined below who presents to the ED c/o worsening SOB x 3 days. History is obtained from daughter at bedside as patient does not speak Jamaican. Per daughter, patient has had abdominal pain and distention for the past month. The pain is described as diffuse 9/10 abdominal pain that is aggravated with movement. No position is comfortable and patient cannot get relief. A recent CT abd/pelvis from 09/28 showed large ascites and a concern for endometrial cancer. Patient had a biopsy completed however it was inadequate for diagnosis. A diagnostic paracentesis was performed yesterday which drained 60 cc of fluid. Patient has become more and more SOB over the past few days which prompted family to bring her back to the ED today. Pt denies fever/chills, diaphoresis, chest pain, palpitations, wheezing, N/V, bowel or bladder issues, LE edema, calf pain, lightheadedness/dizziness. In the ED, vitals are stable. Pt is afebrile with no leukocytosis. Creat 1.5. UA 1+ bacteria and + nitrites. KUB no bowel obstruction. Pt is stable and appears comfortable. She will be admitted for further evaluation and treatment. Physical Exam (per Admitting): General Appearance: WD/WN, no apparent distress, + pertinent finding (Pt is laying in bed with daughter at bedside ) Head: normocephalic, atraumatic Eyes: normal inspection ENT: hearing grossly normal Neck: supple Respiratory/Chest: chest non-tender, lungs clear, normal breath sounds, no respiratory distress Cardiovascular: regular rate, rhythm, no edema, no murmur Abdomen/GI: normal bowel sounds, non tender, + distended Back: normal inspection Extremities/Musculoskelatal: normal inspection, no calf tenderness, no pedal edema Neurologic/Psych: alert, normal mood/affect, oriented x 3 Skin: normal color, warm/dry Hospital Course This is a 76 year old female with PMH of uterine fibroids, unsure of uterine cancer presents with abdominal pain, found to have moderate to large ascites Moderate/Large Ascites s/p Paracentesis; 5L removed therapeutic and diagnostic tap Elevated WBC, but no SBP SAAG < 1.1; possible malignancy related? No antibiotics for ascites outpatient f/u on pathology with PCP will d/c with 20mg of PO Lasix Hx.of Uterine Fibroids Endometrial Thickening appreciate mounter smoking pipe consultation outpatient biopsy recommended at this time UTI urine culture pending PCP should f/u with culture will d/c home with 3 days of Cipro Acute Kidney Injury creat on admission 1.5 likely related to decreased PO intake due to ascites given fluids, and creat normalized stopped IVFs improved PO intake for dinner post paracentesis DVT ppx SCDs FULL CODE Total time spent on discharge = 36 minutes This includes examination of the patient, discharge planning, medication reconciliation, and communication with other providers. Discharge Instructions Please follow-up with your primary care physician - you will get a phone call with a date and time * Take Cipro (antibiotic) twice a day for three days for a UTI * Take Lasix - which is a water pill - every day * PCP should f/u with paracentesis pathology * F/u with auto emissions technician for possible biopsy
[2016-10-07 19:38] VITALS: BP 104/67; PULSE 64; TEMP 36.7; O2SAT 93
[2016-10-13] MEDS ORDERED: ERGOCALCIFEROL 50,000 INTER.UNIT CAP PO SCH (09:00)
[2016-10-20] MEDS ORDERED: SPIR25TA PO (12:55)
[2016-11-10] MEDS ORDERED: OXYC-57 PO (11:13)
== END 2016-10-07 20:15 | disposition home or self-care (01) | DRG 948 ==
LOC: ENRESERVTM → ENRESERVDT → C.EDB 14:29 → C.4E 18:04 → EDBEDREQ 19:06
PROVIDERS: ADMIT Internal Medicine; ATTEND Family Medicine
PROC: 0W9G3ZX Drainage of Peritoneal Cavity, Percutaneous Approach, Diagnostic (ICD-10-PCS; 2016-10-05)
PROC: 0W9G3ZX Drainage of Peritoneal Cavity, Percutaneous Approach, Diagnostic (ICD-10-PCS; principal; 2016-10-06)
DX: R18.8 Other ascites (principal); N39.0 Urinary tract infection, site not specified; N17.9 Acute kidney failure, unspecified; R93.8 Abnormal findings on diagnostic imaging of other specified body structures; C55 Malignant neoplasm of uterus, part unspecified; N85.2 Hypertrophy of uterus

== ENCOUNTER → 2016-10-25 | Outpatient (CLI) | payer OTHER ==
[~2016-10-25] MED LIST changes: +CEPH500C PO; +CLOT10TR2 MT; +CYAN100073 PO; +DEXA1TAB16 PO; +DIPH-437 PO; +DOCU-94 PO; +ERGO500037 PO; +LACT10SO17 PO; -LRT5 PO; +MELO15TA4 PO; +MULT-922 PO; +OXYC-57 PO; +POLY335025 PO; +POTA10CA28 PO; +POTA20TA16 PO; +PROC1TAB5 PO; +SNK PO; +SPIR25TA PO
--- NOTE | 2016-10-25 13:57 | MAMMOGRAPHY REPORT ---
BILATERAL FIRST EVER DIGITAL SCREENING MAMMOGRAM TOMOSYNTHESIS WITH CAD: 10/25/2016 CLINICAL HISTORY: Routine screening. Baseline exam. TECHNIQUE: Breast tomosynthesis in addition to standard 2D mammography was performed. Current study was also evaluated with a Computer Aided Detection (CAD) system. COMPARISON: No prior exams were available for comparison. BREAST COMPOSITION: There are scattered areas of fibroglandular density in both breasts. FINDINGS: No suspicious masses, calcifications, or areas of architectural distortion are noted in e ither breast. Bilateral benign-appearing calcifications are noted, predominantly vascular and rodli ke secretory calcifications. IMPRESSION: ACR BI-RADS CATEGORY 2: BENIGN There is no mammographic evidence of malignancy. A 1 year screening mammogram is recommended. The p atient will receive written notification of the results. Approximately 10% of breast cancers are not detected with mammography. A negative mammographic repor t should not delay biopsy if a clinically suggestive mass is present. Cielo Humphrey M.D. ah/:10/25/2016 13:26:41 Attending Technologist: Ana Goff RT(R)(M), [facility] Hardware Assembler: Rudi Hudson RT(R)(M), [facility] letter sent: Normal 1/2 BI-RADS Code: ACR BI-RADS Category 2: Benign
== END | disposition home or self-care (01) ==
LOC: C.MAMM 11:57
PROVIDERS: ATTEND Family Medicine
DX: Z12.31 Encounter for screening mammogram for malignant neoplasm of breast (principal)

== ENCOUNTER → 2016-10-26 | Day surgery (SDC) | payer OTHER ==
[~2016-10-26] VITALS: Ht 162.6 cm; Wt 90.0 kg
[~2016-10-26] MED LIST changes: +LIDOCAINE HCL 2% 2 ML VIAL (20MG/ML) ONE; +PROPOFOL IV EMULSION 10 MG/ML 20 ML VIAL IV ONE; +SODIUM CHLORIDE 0.9% 500ML 500 ML IV ONE
[2016-10-26 14:35] VITALS: Ht 162.6 cm; Wt 90.0 kg
[2016-10-26 15:16] VITALS: TEMP 36.9
--- NOTE | 2016-10-26 15:47 | Endo History and Physical ---
History & Physical Date of Service: Oct 26, 2016. Chief Complaint: EGD/Colonoscopy Referring Physician: Earnest Hussein History of Present Illness atyip[ical cells on cytology Past Surgical History Hx Cardiac Surgery: No Hx Internal Defibrillator: No Hx Pacemaker: No Hx Abdominal Surgery: No Hx of Implantable Prosthesis: No Hx Post-Op Nausea and Vomiting: No Hx Cancer Surgery: No Hx Thoracic Surgery: No Hx Orthopedic: No Hx Urinary Tract Surgery: No Family History None Social History Smoking Status: Never Smoker Hx Substance Use: No Hx Alcohol Use: No Allergies Coded Allergies: Grapefruit (Verified Allergy, Mild, RASH, 10/26/16) Current Medications Reported Home Medications Medications Dose Route/Sig Max Daily Dose Days Date Category Dose Instructions Aldactone (Spironolactone) 25 Mg Tab 25 Mg PO DAILY 10/20/16 Reported Colace (Docusate Sodium) 100 Mg Cap 1 Cap PO BID 15 10/06/16 Reported Mobic (Meloxicam) 15 Mg Tab 7.5 Mg PO DAILY PRN 10/06/16 Reported Miralax (Polyethylene Glycol 3350) 1 Pow Pow 17 Gm PO DAILY PRN 10/06/16 Reported Senna Lax (Senna) 8.6 Mg Tab 1 Tab PO BID 10/06/16 Reported B12 (Cyanocobalamin) 1,000 Mcg Tab 1,000 Mcg PO DAILY 10/06/16 Reported Multivitamin Adults (Multiple Vitamins W/ Minerals) 1 Tab Tab 1 Tab PO DAILY 10/06/16 Reported Vitamin D 41804 Unit (Ergocalciferol) 50,000 Unit Cap 50,000 Unit PO WK 10/06/16 Reported Klor-Con (Potassium Chloride) 20 Meq Tabcr 10 Meq PO DIRECTED 10/06/16 Reported TAKE 3 X WEEKLY NEEDED. Vital Signs Weight (Kilograms): 90 Height (Feet): 5 Height (Inches): 4 Date Time Temp Pulse Resp B/P Pulse Ox O2 Delivery O2 Flow Rate FiO2 10/26/16 15:16 36.9 81 18 143/77 100 Room Air Physical Exam AAO x3 Nl s1s2 Lungs CTA Abd soft NT ND + BS - CCE Assessment and Plan AAO x3 Nl s1s2 Lungs CTA Abd soft NT ND + BS - CCE
--- NOTE | 2016-10-26 16:52 | Discharge Instructions ---
Endoscopy Patient Instructions Date / Procedure(s) Performed Oct 26, 2016. Colonoscopy, EGD Allergy Information Coded Allergies: Grapefruit (Verified Allergy, Mild, RASH, 10/26/16) Discharge Date / Findings Oct 26, 2016. colon with hemorrhoids and diverticulosis EGD with abnormal thickened folds in gereat curve- biopsied Medication Instructions Restart Stopped Medication(s): Reported Home Medications Medications Dose Route/Sig Max Daily Dose Days Date Category Dose Instructions Aldactone (Spironolactone) 25 Mg Tab 25 Mg PO DAILY 10/20/16 Reported Colace (Docusate Sodium) 100 Mg Cap 1 Cap PO BID 15 10/06/16 Reported Mobic (Meloxicam) 15 Mg Tab 7.5 Mg PO DAILY PRN 10/06/16 Reported Miralax (Polyethylene Glycol 3350) 1 Pow Pow 17 Gm PO DAILY PRN 10/06/16 Reported Senna Lax (Senna) 8.6 Mg Tab 1 Tab PO BID 10/06/16 Reported B12 (Cyanocobalamin) 1,000 Mcg Tab 1,000 Mcg PO DAILY 10/06/16 Reported Multivitamin Adults (Multiple Vitamins W/ Minerals) 1 Tab Tab 1 Tab PO DAILY 10/06/16 Reported Vitamin D 45571 Unit (Ergocalciferol) 50,000 Unit Cap 50,000 Unit PO WK 10/06/16 Reported Klor-Con (Potassium Chloride) 20 Meq Tabcr 10 Meq PO DIRECTED 10/06/16 Reported TAKE 3 X WEEKLY NEEDED. Reported Home Medications Medications Dose Route/Sig Max Daily Dose Days Date Category Dose Instructions Aldactone (Spironolactone) 25 Mg Tab 25 Mg PO DAILY 10/20/16 Reported Colace (Docusate Sodium) 100 Mg Cap 1 Cap PO BID 15 10/06/16 Reported Mobic (Meloxicam) 15 Mg Tab 7.5 Mg PO DAILY PRN 10/06/16 Reported Miralax (Polyethylene Glycol 3350) 1 Pow Pow 17 Gm PO DAILY PRN 10/06/16 Reported Senna Lax (Senna) 8.6 Mg Tab 1 Tab PO BID 10/06/16 Reported B12 (Cyanocobalamin) 1,000 Mcg Tab 1,000 Mcg PO DAILY 10/06/16 Reported Multivitamin Adults (Multiple Vitamins W/ Minerals) 1 Tab Tab 1 Tab PO DAILY 10/06/16 Reported Vitamin D 16202 Unit (Ergocalciferol) 50,000 Unit Cap 50,000 Unit PO WK 10/06/16 Reported Klor-Con (Potassium Chloride) 20 Meq Tabcr 10 Meq PO DIRECTED 10/06/16 Reported TAKE 3 X WEEKLY NEEDED. Provider Instructions Activity Restrictions - No exercising or heavy lifting for 24 hours. - Do not drink alcohol the day of the procedure. - Do not drive a car or operate machinery until the day after the procedure. - Do not make any important decisions or sign important papers in 24 hours after the procedure. Following Day: - Return to full activity which may include returning to work/school. Diet Start your diet with liquids and light foods (jello, soup, juice, toast). Then eat your usual diet if not nauseated. Treatment For Common After Affects For mild abdominal pain, bloating, or excessive gas: - Rest - Eat lightly - Lie on right side Follow-Up Information Follow-up with Earnest Hussein as scheduled Anesthesia Information What You Should Know You have had a procedure that required some medicine to reduce anxiety and discomfort. This treatment is called moderate sedation. After receiving the treatment, you may be sleepy, but you will be able to breathe on your own. The effects of the treatment may last for several hours. Follow these instructions along with Activity/Diet recommendations noted above: * Do NOT do anything where dizziness or clumsiness would be dangerous. * Rest quietly at home today, then you can be up and about tomorrow. * Have a responsible person stay with you the rest of today. * You may have had an I.V. today. If so, you may take the dressing off later today. Recommendations Call your doctor if: * Trouble breathing * Continuous vomiting for more than 24 hours * Temperature above 101 degrees * Severe abdominal pain or bloating * Pain not relieved by pain medicine ordered * There is increased drainage or redness from any incision * A large amount of rectal bleeding greater than 2-3 tablespoons. (If you had a polyp/s removed or have hemorrhoids, a small amount of blood - from the rectum is to be expected.) * You have any unanswered questions or concerns. IN THE EVENT OF A SERIOUS EMERGENCY, GO TO THE NEAREST EMERGENCY ROOM Your discharge instructions were prepared by provider Kristopher Corcoran. Patient Instructions Signature Page Tayla Block Patient (or Guardian) Signature/Date: I have read and understand the instructions given to me by my caregivers. Caregiver/RN/Doctor Signature/Date: The above-named patient and/or guardian has received patient instructions on this date. + Original Patient Signature Page (only) stays with chart. Please make copy for patient.
--- NOTE | 2016-10-26 16:56 | GI REPORT ---
Procedure Date: 10/26/2016 4:08 PM Procedure: Colonoscopy Indications: Screening for colorectal malignant neoplasm Medicines: Propofol per Anesthesia Complications: No immediate complications. Estimated blood loss: None. Estimated Blood Loss: Estimated blood loss: none. Estimated blood loss: none. Estimated blood loss: none. Procedure: Pre-Anesthesia Assessment: - Prior to the procedure, a History and Physical was performed, and patient medications and allergies were reviewed. The patient's tolerance of previous anesthesia was also reviewed. The risks and benefits of the procedure and the sedation options and risks were discussed with the patient. All questions were answered, and informed consent was obtained. Prior Anticoagulants: The patient has taken no previous anticoagulant or antiplatelet agents. ASA Grade Assessment: III - A patient with severe systemic disease. After reviewing the risks and benefits, the patient was deemed in satisfactory condition to undergo the procedure. After I obtained informed consent, the scope was passed under direct vision. Throughout the procedure, the patient's blood pressure, pulse, and oxygen saturations were monitored continuously. The scope was introduced through the anus and advanced to the cecum, identified by appendiceal orifice and ileocecal valve. The scope was introduced through the anus and advanced to the cecum, identified by appendiceal orifice and ileocecal valve. The colonoscopy was performed without difficulty. The patient tolerated the procedure well. The quality of the bowel preparation was good. Findings: The perianal and digital rectal examinations were normal. Pertinent negatives include normal sphincter tone, no palpable rectal lesions and no anal lesion or abnormality was detected. A few small-mouthed diverticula were found in the sigmoid colon. Non-bleeding external hemorrhoids were found during perianal exam. The hemorrhoids were mild. The exam was otherwise without abnormality. The retroflexed view of the distal rectum and anal verge was normal and showed no anal or rectal abnormalities. Impression: - Diverticulosis in the sigmoid colon. - Non-bleeding external hemorrhoids. - The examination was otherwise normal. - The distal rectum and anal verge are normal on retroflexion view. - No specimens collected. Recommendation: - Discharge patient to home. - Resume regular diet. - Continue present medications. - Return to referring physician as previously scheduled. MD Kristopher Islas MD 10/26/2016 4:54:44 PM This report has been signed electronically. Note Initiated On: 10/26/2016 4:08 PM I attest to the content of the Intraoperative Record and orders documented therein, exceptions below
[2016-10-26 17:05] VITALS: BP 167/87; PULSE 76; O2SAT 97
--- NOTE | 2016-10-26 17:16 | GI REPORT ---
Procedure Date: 10/26/2016 3:55 PM Procedure: Upper GI endoscopy Indications: Abnormal ultrasound of the GI tract, Weight loss, malignant ascites Medicines: General Anesthesia Complications: No immediate complications. Estimated blood loss: Minimal. Estimated Blood Loss: Estimated blood loss was minimal. Procedure: Pre-Anesthesia Assessment: - Prior to the procedure, a History and Physical was performed, and patient medications and allergies were reviewed. The patient's tolerance of previous anesthesia was also reviewed. The risks and benefits of the procedure and the sedation options and risks were discussed with the patient. All questions were answered, and informed consent was obtained. Prior Anticoagulants: The patient has taken no previous anticoagulant or antiplatelet agents. ASA Grade Assessment: III - A patient with severe systemic disease. After reviewing the risks and benefits, the patient was deemed in satisfactory condition to undergo the procedure. After obtaining informed consent, the endoscope was passed under direct vision. Throughout the procedure, the patient's blood pressure, pulse, and oxygen saturations were monitored continuously. The scope was introduced through the mouth, and advanced to the second part of duodenum. The upper GI endoscopy was accomplished without difficulty. The patient tolerated the procedure well. Findings: The examined esophagus was normal. Diffuse thick gastric folds were found in the gastric body, on the greater curvature of the stomach and on the lesser curvature of the stomach. Biopsies were taken with a cold forceps for histology. The examined duodenum was normal. The pylorus was normal. Impression: - Normal esophagus. - Enlarged gastric folds. Biopsied. - Normal examined duodenum. - Normal pylorus. Recommendation: - Discharge patient to home (ambulatory). - Await pathology results. - Return to GI clinic as previously scheduled. - Return to referring physician as previously scheduled. - Abnormal gastric fold, firm to biopsy. These changes may represent a source of the malignant appearing ascites. MD Kristopher Islas MD 10/26/2016 5:15:31 PM This report has been signed electronically. Note Initiated On: 10/26/2016 3:55 PM I attest to the content of the Intraoperative Record and orders documented therein, exceptions below
== END | disposition home or self-care (01) ==
LOC: C.GI 14:01
PROVIDERS: ATTEND Internal Medicine Gastroenterology
DX: C16.6 Malignant neoplasm of greater curvature of stomach, unspecified (principal); K57.30 Diverticulosis of large intestine without perforation or abscess without bleeding; K64.4 Residual hemorrhoidal skin tags

== ENCOUNTER 2016-10-30 19:55 | Inpatient (IN) | payer OTHER ==
[~2016-10-30] VITALS: Ht 162.6 cm; Wt 91.7 kg
[~2016-10-30 19:55] MED LIST changes: -CEPH500C PO; -CLOT10TR2 MT; -DEXA1TAB16 PO; -DIPH-437 PO; -LACT10SO17 PO; -LIDOCAINE HCL 2% 2 ML VIAL (20MG/ML) ONE; -OXYC-57 PO; -POTA10CA28 PO; -PROC1TAB5 PO; -PROPOFOL IV EMULSION 10 MG/ML 20 ML VIAL IV ONE; -SODIUM CHLORIDE 0.9% 500ML 500 ML IV ONE
[2016-10-30] MEDS ORDERED: MoRPHine SULFATE 4 MG/ML 1 ML CARP\\VIAL IV STA (20:28)
[2016-10-30] MEDS ORDERED: SODIUM CHLORIDE 0.9% 1000ML 1,000 ML IV STA (20:28)
[2016-10-30] MEDS ORDERED: SODIUM CHLORIDE 0.9% 500ML 500 ML IV STA (20:28)
[2016-10-30] MEDS ORDERED: ONDANSETRON INJ 2 MG/ML 2 ML VIAL IV STA (20:28)
[2016-10-30 20:54] LABS: BASO % 0.1 %; BASO ABS # 0.01 K/uL (0-0.2); COMPLETE YES; HEMATOCRIT 43.4 % (37-47); IG% 0.4 %; LYMPH % 5.8 %; LYMPH ABS # 0.54 K/uL (1.2-3.4); MEAN CELL VOLUME 83.8 fL (80-100); MEAN CORPUSCULAR HEMOGLOBIN 29.5 pg (25-34); MEAN CORPUSCULAR HGB CONC 35.3 g/dl (32-36); MEAN PLATELET VOLUME 11.1 fL (7.4-10.4); MONO % 3.5 %; NEUT % 90.2 %; PLATELET COUNT 268 K/uL (130-400); RED BLOOD COUNT 5.18 M/uL (4.2-5.4); WHITE BLOOD COUNT 9.34 K/uL (4.8-10.8)
[2016-10-30 21:38] LABS: ALT/SGPT 13 U/L (12-78); BLOOD UREA NITROGEN 15 mg/dl (7-18); BUN/CREATININE RATIO 14.5 (10-20); CARBON DIOXIDE 21 mmol/L (21-32); CHLORIDE 106 mmol/L (98-107); GLUCOSE 169 mg/dl (70-99); POTASSIUM 3.8 mmol/L (3.5-5.1); SODIUM 139 mmol/L (136-145)
[2016-10-30 21:41] LABS: URINE APPEARANCE CLOUDY (CLEAR); URINE COLOR ORANGE; URINE EPITHELIAL CELL AUTO >30 /lpf (0-5); URINE NITRITE POS (NEG); URINE SPECIFIC GRAVITY 1.039 (1.000-1.030); UROBILINOGEN NEG (NEG); ZZURINE CULT IF INDIC CATH NO
[2016-10-30 21:41] LABS: ALKALINE PHOSPHATASE 70 U/L (45-117); AST/SGOT 14 U/L (15-37)
--- NOTE | 2016-10-30 21:45 | DIAGNOSTIC IMAGING REPORT ---
CT SCAN OF THE ABDOMEN AND PELVIS WITHOUT IV CONTRAST CLINICAL HISTORY: Generalized abdominal pain. Ascites. Reported history of gastric cancer. COMPARISON STUDY: Abdominal CT dated 10/06/2016. TECHNIQUE: CT scan of the abdomen and pelvis is performed from the lung bases to the proximal femora. Images are reviewed in the axial, sagittal, and coronal planes. IV contrast was not administered for this examination as per the referring clinician. Note that the examination is significantly suboptimal without IV and oral contrast. Automated dose control exposure was utilized. CT DOSE: 686.55 mGy.cm FINDINGS: Lung bases: The heart is normal in size and without pericardial effusion. The coronary arteries are calcified. The lung bases are clear. Liver: The unenhanced liver is cirrhotic in morphology and heterogeneous in attenuation. There is nodularity of the hepatic surface contour. A 12 mm low-density lesion is again seen in the right hepatic lobe on image #59. There is no intrahepatic biliary ductal dilatation. Gallbladder: Normal as visualized. Spleen: Normal in size and attenuation. Pancreas: Atrophic and grossly unremarkable. Adrenal glands: Unremarkable. Kidneys: The unenhanced kidneys demonstrate cortical atrophy and are without hydronephrosis. There are no renal calculi identified. Lobulated/septated cysts arises from the upper pole the right kidney. These measure up to 6.5 cm in aggregate dimension. A 4 cm cyst arises from the right lower pole. Abdominal vasculature: The abdominal aorta is normal in course and caliber. Stomach and bowel: There is a tiny hiatal hernia. Nonspecific gastric wall thickening is identified. The duodenum is normal in configuration. No bowel obstruction is seen. There is mild colonic diverticulosis without CT evidence of acute diverticulitis. The appendix is not visualized. Peritoneum: There is a moderate volume of abdominopelvic ascites. No intraperitoneal free air is seen. Omental edema and nodularity is identified and may represent carcinomatosis. Lymphadenopathy: None. Pelvic viscera: The bladder is decompressed and not well evaluated. Endometrial thickening is again suggested. No adnexal lesion is seen. Skeletal structures: The skeletal structures are osteopenic. There is moderate to advanced lumbosacral spondylosis. Advanced arthritic change is present in the hips. Sclerosis is noted involving the sacroiliac joints. No lytic or blastic lesions are seen. IMPRESSION: 1. Significantly suboptimal examination without oral and IV contrast. 2. No acute infectious or inflammatory findings are clearly seen in the abdomen or pelvis. 3. Cirrhotic liver morphology. 4. Moderate volume of abdominopelvic ascites. 5. There is nonspecific gastric wall thickening. This may correspond to the reported history of gastric cancer but is not well evaluated by CT. 6. Omental nodularity and edema are identified. Carcinomatosis is not excluded given the reported history of gastric cancer. 7. Endometrial thickening is again suggested. 8. Additional findings as above. Electronically signed by: Braydon Mace M.D. 10/30/2016 9:43 PM Dictated Date/Time: 10/30/2016 9:34 PM
[2016-10-30] MEDS ORDERED: DIPH-437 PO (21:56)
[2016-10-30 21:57] LABS: CALCIUM 8.7 mg/dl (8.5-10.1)
[2016-10-30 22:00] LABS: MANUAL MICROSCOPIC REQUIRED? NO; REVIEW REQ? YES; URINE BILIRUBIN 1+ (NEG)
[2016-10-30 22:02] LABS: URINE PATH CASTS 0-3 GRANULAR CASTS /lpf (0)
[2016-10-30] MEDS ORDERED: CEFTRIAXONE SOD INJ 1 GM ADDVIAL IV STA (22:17)
--- NOTE | 2016-10-30 22:59 | History and Physical ---
History & Physical Date & Time of Service: Oct 30, 2016 at 22:56 Chief Complaint: Ascitis Primary Care Physician: Earnest Hussein MD History of Present Illness Source: family 76 y/o F Hx recently diagnosed metastatic gastric CA with ascites, uterine CA. Pt is requiring periodic drainage of her ascites due to pain, and SOB related to distention. She was last drained 10/20. Her family has brought her in due to recurrence of her ascites, abdominal pain, poor PO intake and oliguria. She is apparently unable to adequately mobilize at present due to her ascites. She has lost significant weight since the initial diagnosis which took place in late September. She has not yet consulted with an oncologist although she has an appt for the coming week. She denies fevers, N/V/D or dysuria. Past Medical/Surgical History Medical Problems: (1) Ascites Status: Chronic (2) Uterine cancer Status: Chronic Surgical Problems: (1) H/O cataract removal with insertion of prosthetic lens Status: Resolved Family History Patient reports no known family medical history. reviewed / noncontributory Social History Smoking Status: Never Smoker Drug Use: none Marital Status: Housing status: lives with family Occupational Status: retired Allergies Coded Allergies: NO KNOWN DRUG ALLERGIES (Verified Allergy, Unknown, ., 10/30/16) Home Medications Scheduled Cyanocobalamin (B12), 1,000 MCG PO DAILY Ergocalciferol (Vitamin D 73270 Unit), 50,000 UNIT PO WK Potassium Ext Rel (Klor-Con), 10 MEQ PO DIRECTED Spironolactone (Aldactone), 25 MG PO DAILY Scheduled PRN Acetaminophen/Diphenhydramine (Tylenol Pm), 1 TAB PO HS PRN for PRN Docusate Sodium (Colace), 100 MG PO BID PRN for Constipation Polyethylene Glycol 3350 (Miralax), 17 GM PO DAILY PRN for Constipation Senna (Senna Lax), 1 TAB PO BID PRN for Constipation Review of Systems Constitutional: + fatigue, + weakness, + weight loss, No chills, No fever, No sweats Eyes: No eye pain, No worsening of vision ENT: No hearing loss, No nasal symptoms, No unusual epistaxis Respiratory: + dyspnea at rest, + dyspnea on exertion, + shortness of breath, No cough, No sputum, No wheezing Cardiovascular: No PND, No chest pain, No orthopnea Abdomen: + nausea, + pain, No constipation, No diarrhea, No vomiting Musculoskeletal: No joint pain, No muscle pain Genitourinary - Female: No dysuria, No urinary frequency, No urinary urgency Neurologic: + weakness, No memory loss, No paralysis Psychiatric: + anhedonism, + depression symptoms Endocrine: + fatigue, No excessive thirst Hematologic / Lymphatic: No abnormal bleeding/bruising, No clotting problems Integumentary: No itch, No rash Physical Exam Vital Signs Date Time Temp Pulse Resp B/P Pulse Ox O2 Delivery O2 Flow Rate FiO2 10/30/16 22:42 90 18 140/89 93 Room Air 10/30/16 21:35 93 10/30/16 21:07 63 18 103/72 96 Room Air 10/30/16 20:03 36.9 93 16 95 Room Air General Appearance: WD/WN, no apparent distress, + pertinent finding ( Lethargic elderly F - no distress) Head: normocephalic, atraumatic Eyes: normal inspection, PERRL, EOMI ENT: normal ENT inspection, hearing grossly normal, TMs normal, pharynx normal Neck: supple Respiratory/Chest: chest non-tender, lungs clear, normal breath sounds, no respiratory distress, no accessory muscle use Cardiovascular: regular rate, rhythm, no edema, no gallop Abdomen/GI: normal bowel sounds, + pertinent finding (Significantly distended abdmomen) Back: normal inspection, no CVA tenderness Extremities/Musculoskelatal: normal inspection, no calf tenderness, normal capillary refill, no pedal edema, normal range of motion Neurologic/Psych: station helper II-XII nml as tested, no motor/sensory deficits, alert, normal reflexes, oriented x 3 Skin: normal color, warm/dry, no rash Diagnostics Laboratory Results Results Past 24 Hours Test 10/30/16 20:00 10/30/16 20:40 10/30/16 21:12 Range/Units Urine Color ORANGE Urine Appearance CLOUDY CLEAR Urine pH 5.0 4.5-7.5 Urine Specific Chauncey 1.039 1.000-1.030 Urine Protein 1+ NEG Urine Glucose (UA) NEG NEG Urine Ketones TRACE NEG Urine Occult Blood NEG NEG Urine Nitrite POS NEG Urine Bilirubin 1+ NEG Urine Urobilinogen NEG NEG Urine Leukocyte Esterase TRACE NEG Urine WBC (Auto) 1-5 0-5 /hpf Urine RBC (Auto) 0-4 0-4 /hpf Urine Hyaline Casts (Auto) 10-30 0-5 /lpf Urine Epithelial Cells (Auto) >30 0-5 /lpf Urine Bacteria (Auto) NEG NEG Urine Renal Epithelial Cells 0-5 /lpf Urine Pathogenic Casts 0-3 GRANULAR CASTS 0 /lpf White Blood Count 9.34 4.8-10.8 K/uL Red Blood Count 5.18 4.2-5.4 M/uL Hemoglobin 15.3 12.0-16.0 g/dL Hematocrit 43.4 37-47 % Mean Corpuscular Volume 83.8 80-100 fL Mean Corpuscular Hemoglobin 29.5 25-34 pg Mean Corpuscular Hemoglobin Concent 35.3 32-36 g/dl Platelet Count 268 130-400 K/uL Mean Platelet Volume 11.1 7.4-10.4 fL Neutrophils (%) (Auto) 90.2 % Lymphocytes (%) (Auto) 5.8 % Monocytes (%) (Auto) 3.5 % Eosinophils (%) (Auto) 0.0 % Basophils (%) (Auto) 0.1 % Neutrophils # (Auto) 8.42 1.4-6.5 K/uL Lymphocytes # (Auto) 0.54 1.2-3.4 K/uL Monocytes # (Auto) 0.33 0.11-0.59 K/uL Eosinophils # (Auto) 0.00 0-0.5 K/uL Basophils # (Auto) 0.01 0-0.2 K/uL RDW Standard Deviation 37.5 36.4-46.3 fL RDW Coefficient of Variation 12.3 11.5-14.5 % Immature Granulocyte % (Auto) 0.4 % Immature Granulocyte # (Auto) 0.04 0.00-0.02 K/uL Sodium Level 139 136-145 mmol/L Potassium Level 3.8 3.5-5.1 mmol/L Chloride Level 106 98-107 mmol/L Carbon Dioxide Level 21 21-32 mmol/L Anion Gap 12.0 3-11 mmol/L Blood Urea Nitrogen 15 7-18 mg/dl Creatinine 1.00 0.60-1.20 mg/dl Est Creatinine Clear Calc Drug Dose 54.2 ml/min Estimated GFR () 64.3 Estimated GFR (Non- 55.5 BUN/Creatinine Ratio 14.5 10-20 Random Glucose 169 70-99 mg/dl Calcium Level 8.7 8.5-10.1 mg/dl Total Bilirubin 0.5 0.2-1 mg/dl Direct Bilirubin < 0.1 0-0.2 mg/dl Aspartate Amino Transf (AST/SGOT) 14 15-37 U/L Alanine Aminotransferase (ALT/SGPT) 13 12-78 U/L Alkaline Phosphatase 70 45-117 U/L Total Protein 6.7 6.4-8.2 gm/dl Albumin 2.9 3.4-5.0 gm/dl Lipase 173 73-393 U/L Ammonia < 10.0 11-32 umol/L Diagnostic Radiology IMPRESSION: 1. Significantly suboptimal examination without oral and IV contrast. 2. No acute infectious or inflammatory findings are clearly seen in the abdomen or pelvis. 3. Cirrhotic liver morphology. 4. Moderate volume of abdominopelvic ascites. 5. There is nonspecific gastric wall thickening. This may correspond to the reported history of gastric cancer but is not well evaluated by CT. 6. Omental nodularity and edema are identified. Carcinomatosis is not excluded given the reported history of gastric cancer. EKG NSR Impression Assessment and Plan 76 y/o F Hx recently diagnosed metastatic gastric CA with ascites, uterine CA. Pt is requiring periodic drainage of her ascites due to pain, and SOB related to distention. She was last drained 10/20. Her family has brought her in due to recurrence of her ascites, abdominal pain, poor PO intake and oliguria. She is apparently unable to adequately mobilize at present due to her ascites. She has lost significant weight since the initial diagnosis which took place in late September. She has not yet consulted with an oncologist although she has an appt for the coming week. She denies fevers, N/V/D or dysuria. The pt is assigned to observation for palliative purposes. She will be provided with narcotics for pain relief, IVF and antiemetics as needed. We magda schedule a palliative paracentesis with IR. Regarding her decreased intake and oliguria, she is currently taking Aldactone although this may have a limited effect with malignancy and may merit reconsideration if she is unable to maintain adequate hydration. This will be held pending reevaluation. Her renal function is not impaired at the time of admission. She is scheduled to see H/O Wed so that an inpt consult can be obtained if she requires an extended hospital stay. It is noted that her UA is weakly +. She had a + UA previously and a culture revealed G+ cocci which may have been a contaminant as a specificity was not identified. As this may be contributing to her weakness, we will treat pending culture results. Full code - Heparin prophylaxis Total time for this admit including review of labs, pathology, imaging and recent records - discussion with family who served as translators - discussion with ER MD - 37 min Level of Care Med/Surg Resuscitation Status FULL RESUSCITATION VTE Prophylaxis Given or contraindicated: Unfractionated heparin SQ
[2016-10-30] MEDS ORDERED: MAGNESIUM HYDROXIDE SUSP 30 ML UDC PO PRN (23:00)
[2016-10-30] MEDS ORDERED: ONDANSETRON INJ 2 MG/ML 2 ML VIAL IV PRN (23:00)
[2016-10-30] MEDS ORDERED: OXYCODONE HCL IR 5 MG TAB (IMMEDIATE RELEASE) PO PRN (23:00)
[2016-10-30] MEDS ORDERED: DOCUSATE SODIUM 100 MG CAP PO PRN (23:00)
[2016-10-30] MEDS ORDERED: ACETAMINOPHEN 325 MG TAB PO PRN (23:00)
[2016-10-30] MEDS ORDERED: NON-FORMULARY MEDICATION (Acetaminophen/Diphenhydramine (Tylenol Pm) 1 TAB) PO PRN (23:00)
[2016-10-30] MEDS ORDERED: ALUMINUM/MAGNESIUM/SIMETH (MAALOX MAX) 30 ML UDC PO PRN (23:00)
[2016-10-30] MEDS ORDERED: SENNA 8.6 MG TAB PO PRN (23:00)
[2016-10-30] MEDS ORDERED: POLYETHYLENE (MIRALAX) 17 GM PACK PO PRN (23:00)
--- NOTE | 2016-10-30 23:11 | EMERGENCY ROOM VISIT NOTE ---
History Report prepared by Chuck: Kelvin Weber Under the Supervision of: Dr. José Manuel Foster M.D. First contact with patient: 20:16 Chief Complaint: ABDOMINAL PAIN Stated Complaint: ASCITIS History of Present Illness The patient is a 76 year old female who presents to the Emergency Room with complaints of constant abdominal pain beginning this week. Per family, the patient was found to have ascites about a month ago. She states that the patient has had 5 liters of fluid drained twice since then. The patient's most recent draining occurred 10 days ago. The patient's family notes that the patient had an MRI about a week ago. She states that the patient also had a liver biopsy done recently. She states that the patient has not been able to eat or sleep recently. The patient rates her current pain as a 10/10 in severity. She also complains of shortness of breath and decreased urinary frequency. She states that her chest feels "tight" due to her distended abdomen. Pt denies LOC, headache, fevers, chills, diaphoresis, visual changes, neck pain, chest pain, nausea, vomiting, back pain, melena, hematochezia, numbness, weakness, lymphadenopathy, rash, increased leg swelling, jaundice, or other complaints. Source of History: family Onset: This week Position: abdomen Symptom Intensity: 10/10 Timing: constant Associated Symptoms: + SOB, + urinary symptoms (decreased frequency), No chest pain, No fevers, No vomiting Review of Systems See HPI for pertinent positives and negatives. A total of ten systems were reviewed and were otherwise negative. Past Medical & Surgical Medical Problems: (1) Ascites (2) Dehydration (3) Uterine cancer (4) Weakness Surgical Problems: (1) H/O cataract removal with insertion of prosthetic lens Family History Patient reports no known family medical history. Social History Smoking Status: Never Smoker Drug Use: none Marital Status: Occupation Status: retired Current/Historical Medications Scheduled Cyanocobalamin (B12), 1,000 MCG PO DAILY Ergocalciferol (Vitamin D 13511 Unit), 50,000 UNIT PO WK Potassium Ext Rel (Klor-Con), 10 MEQ PO DIRECTED Spironolactone (Aldactone), 25 MG PO DAILY Scheduled PRN Acetaminophen/Diphenhydramine (Tylenol Pm), 1 TAB PO HS PRN for PRN Docusate Sodium (Colace), 100 MG PO BID PRN for Constipation Polyethylene Glycol 3350 (Miralax), 17 GM PO DAILY PRN for Constipation Senna (Senna Lax), 1 TAB PO BID PRN for Constipation Allergies Coded Allergies: NO KNOWN DRUG ALLERGIES (Verified Allergy, Unknown, ., 10/30/16) Physical Exam Vital Signs Date Time Temp Pulse Resp B/P Pulse Ox O2 Delivery O2 Flow Rate FiO2 10/30/16 22:42 90 18 140/89 93 Room Air 10/30/16 21:35 93 10/30/16 21:07 63 18 103/72 96 Room Air 10/30/16 20:03 36.9 93 16 95 Room Air Physical Exam GENERAL: Awake, alert, well-appearing, in no distress HENT: Normocephalic, atraumatic. Oropharynx unremarkable. EYES: Normal conjunctiva. Sclera non-icteric. NECK: Supple. No nuchal rigidity. FROM. No JVD. RESPIRATORY: Clear to auscultation. CARDIAC: Regular rate, normal rhythm. Extremities warm and well perfused. Pulses equal. ABDOMEN: Soft, non-distended. Mild diffuse, moderate lower abdominal tenderness to palpation. No rebound or guarding. No masses. RECTAL: Deferred. MUSCULOSKELETAL: Chest examination reveals no tenderness. The back is symmetrical on inspection without obvious abnormality. There is no CVA tenderness to palpation. No joint edema. LOWER EXTREMITIES: Calves are equal size bilaterally and non-tender. No edema. No discoloration. NEURO: Normal sensorium. No sensory or motor deficits noted. SKIN: No rash or jaundice noted. Medical Decision & Procedures ER Provider Diagnostic Interpretation: CT: Radiology results as stated below per my review and radiologist interpretation CT SCAN OF THE ABDOMEN AND PELVIS WITHOUT IV CONTRAST FINDINGS: Lung bases: The heart is normal in size and without pericardial effusion. The coronary arteries are calcified. The lung bases are clear. Liver: The unenhanced liver is cirrhotic in morphology and heterogeneous in attenuation. There is nodularity of the hepatic surface contour. A 12 mm low-density lesion is again seen in the right hepatic lobe on image #59. There is no intrahepatic biliary ductal dilatation. Gallbladder: Normal as visualized. Spleen: Normal in size and attenuation. Pancreas: Atrophic and grossly unremarkable. Adrenal glands: Unremarkable. Kidneys: The unenhanced kidneys demonstrate cortical atrophy and are without hydronephrosis. There are no renal calculi identified. Lobulated/septated cysts arises from the upper pole the right kidney. These measure up to 6.5 cm in aggregate dimension. A 4 cm cyst arises from the right lower pole. Abdominal vasculature: The abdominal aorta is normal in course and caliber. Stomach and bowel: There is a tiny hiatal hernia. Nonspecific gastric wall thickening is identified. The duodenum is normal in configuration. No bowel obstruction is seen. There is mild colonic diverticulosis without CT evidence of acute diverticulitis. The appendix is not visualized. Peritoneum: There is a moderate volume of abdominopelvic ascites. No intraperitoneal free air is seen. Omental edema and nodularity is identified and may represent carcinomatosis. Lymphadenopathy: None. Pelvic viscera: The bladder is decompressed and not well evaluated. Endometrial thickening is again suggested. No adnexal lesion is seen. Skeletal structures: The skeletal structures are osteopenic. There is moderate to advanced lumbosacral spondylosis. Advanced arthritic change is present in the hips. Sclerosis is noted involving the sacroiliac joints. No lytic or blastic lesions are seen. IMPRESSION: 1. Significantly suboptimal examination without oral and IV contrast. 2. No acute infectious or inflammatory findings are clearly seen in the abdomen or pelvis. 3. Cirrhotic liver morphology. 4. Moderate volume of abdominopelvic ascites. 5. There is nonspecific gastric wall thickening. This may correspond to the reported history of gastric cancer but is not well evaluated by CT. 6. Omental nodularity and edema are identified. Carcinomatosis is not excluded given the reported history of gastric cancer. 7. Endometrial thickening is again suggested. 8. Additional findings as above. Electronically signed by: Braydon Mace M.D. Laboratory Results 10/30/16 20:40 Red Blood Count 5.18, Mean Corpuscular Volume 83.8, Mean Corpuscular Hemoglobin 29.5, Mean Corpuscular Hemoglobin Concent 35.3, Mean Platelet Volume 11.1, Neutrophils (%) (Auto) 90.2, Lymphocytes (%) (Auto) 5.8, Monocytes (%) (Auto) 3.5, Eosinophils (%) (Auto) 0.0, Basophils (%) (Auto) 0.1, Neutrophils # (Auto) 8.42, Lymphocytes # (Auto) 0.54, Monocytes # (Auto) 0.33, Eosinophils # (Auto) 0.00, Basophils # (Auto) 0.01 10/30/16 20:40 Test 10/30/16 20:00 10/30/16 20:40 10/30/16 21:12 Urine Color ORANGE Urine Appearance CLOUDY (CLEAR) Urine pH 5.0 (4.5-7.5) Urine Specific [place] 1.039 (1.000-1.030) Urine Protein 1+ (NEG) Urine Glucose (UA) NEG (NEG) Urine Ketones TRACE (NEG) Urine Occult Blood NEG (NEG) Urine Nitrite POS (NEG) Urine Bilirubin 1+ (NEG) Urine Urobilinogen NEG (NEG) Urine Leukocyte Esterase TRACE (NEG) Urine WBC (Auto) 1-5 /hpf (0-5) Urine RBC (Auto) 0-4 /hpf (0-4) Urine Hyaline Casts (Auto) 10-30 /lpf (0-5) Urine Epithelial Cells (Auto) >30 /lpf (0-5) Urine Bacteria (Auto) NEG (NEG) Urine Renal Epithelial Cells /lpf (0-5) Urine Pathogenic Casts 0-3 GRANULAR CASTS /lpf (0) White Blood Count 9.34 K/uL (4.8-10.8) Red Blood Count 5.18 M/uL (4.2-5.4) Hemoglobin 15.3 g/dL (12.0-16.0) Hematocrit 43.4 % (37-47) Mean Corpuscular Volume 83.8 fL (80-100) Mean Corpuscular Hemoglobin 29.5 pg (25-34) Mean Corpuscular Hemoglobin Concent 35.3 g/dl (32-36) Platelet Count 268 K/uL (130-400) Mean Platelet Volume 11.1 fL (7.4-10.4) Neutrophils (%) (Auto) 90.2 % Lymphocytes (%) (Auto) 5.8 % Monocytes (%) (Auto) 3.5 % Eosinophils (%) (Auto) 0.0 % Basophils (%) (Auto) 0.1 % Neutrophils # (Auto) 8.42 K/uL (1.4-6.5) Lymphocytes # (Auto) 0.54 K/uL (1.2-3.4) Monocytes # (Auto) 0.33 K/uL (0.11-0.59) Eosinophils # (Auto) 0.00 K/uL (0-0.5) Basophils # (Auto) 0.01 K/uL (0-0.2) RDW Standard Deviation 37.5 fL (36.4-46.3) RDW Coefficient of Variation 12.3 % (11.5-14.5) Immature Granulocyte % (Auto) 0.4 % Immature Granulocyte # (Auto) 0.04 K/uL (0.00-0.02) Anion Gap 12.0 mmol/L (3-11) Est Creatinine Clear Calc Drug Dose 54.2 ml/min Estimated GFR () 64.3 Estimated GFR (Non- 55.5 BUN/Creatinine Ratio 14.5 (10-20) Calcium Level 8.7 mg/dl (8.5-10.1) Total Bilirubin 0.5 mg/dl (0.2-1) Direct Bilirubin < 0.1 mg/dl (0-0.2) Aspartate Amino Transf (AST/SGOT) 14 U/L (15-37) Alanine Aminotransferase (ALT/SGPT) 13 U/L (12-78) Alkaline Phosphatase 70 U/L (45-117) Total Protein 6.7 gm/dl (6.4-8.2) Albumin 2.9 gm/dl (3.4-5.0) Lipase 173 U/L (73-393) Ammonia < 10.0 umol/L (11-32) Laboratory results reviewed by me Medications Administered Medications (Trade) Dose Ordered Sig/Garciela Route Start Time Stop Time Status Last Admin Dose Admin Sodium Chloride 1,000 ml @ 125 mls/hr Q8H STAT IV 10/30/16 20:28 10/31/16 04:27 10/30/16 20:50 125 MLS/HR Sodium Chloride (Nss 500ml) 500 ml @ 999 mls/hr Q31M STAT IV 10/30/16 20:28 10/30/16 20:58 DC 10/30/16 20:28 999 MLS/HR Ondansetron HCl (Zofran Inj) 4 mg NOW STAT IV 10/30/16 20:28 10/30/16 20:30 DC 10/30/16 20:50 4 MG Morphine Sulfate (MoRPHine SULFATE INJ) 2 mg NOW STAT IV 10/30/16 20:28 10/30/16 20:30 DC 10/30/16 20:50 2 MG Ceftriaxone Sodium (Rocephin Inj) 1 gm NOW STAT IV 10/30/16 22:17 10/30/16 22:18 DC 10/30/16 22:47 1 GM ECG Indication: abdominal pain Rate (beats per minute): 100 Rhythm: normal sinus Findings: no acute ischemic change, no ectopy ED Course 2018: The patient was evaluated in room B11A. A complete history and physical exam was performed. 2027: Ordered Morphine Sulfate 2 mg IV, Zofran Inj 4 mg IV, Sodium Chloride 500 ml @ 999 mls/hr IV, Sodium Chloride 1000 ml @ 125 mls/hr IV. 2146: I reassessed the patient. She is feeling a little better. 2216: Ordered Rocephin Inj 1 gm IV. 2219: Upon reexamination, the patient was resting comfortably. I discussed the test results and treatment plan with her and her family. The patient will be evaluated for further management. Medical Decision Triage Nursing notes reviewed. The patient's presentation and history were concerning for Abdominal pain, weakness, poor by mouth intake, and history of ascites. Etiologies such as ascites, complication of metastatic cancer, SBP, appendicitis , diverticulitis, obstruction, inflammatory bowel disease, renal colic, PUD, biliary pathology, pancreatitis, mesenteric ischemia, aortic pathology, infections, genitourinary, UTI, perforated viscus, as well as others were entertained. The patient was evaluated. She was doing relatively well although she had tenderness in the suprapubic region. Family notes decreased urine output. They state that she has been doing poorly at home with oral intake, weight loss , and generalized weakness. They noted she was complaining of abdominal discomfort and her abdomen is clearly distended. There concerned about ascites reaccumulating. The patient had unremarkable blood work. Urinalysis was very concerning for infection. The patient underwent CT imaging and this showed moderate ascites. No obstruction seen. Findings concerning for carcinomatosis present. I did update the family and they were also provided there biopsy results. The family helped translate for the patient. She did understand basic information and questioning. She did receive IV morphine in addition to IV Rocephin. She was hydrated and also given Zofran. Since the patient is doing poorly at home and has the urinary tract infection further evaluation and management in the hospital felt to be appropriate. Family was very much in agreement. Consultation was made with internal medicine. Findings were discussed. The patient was evaluated in the Emergency Room for further management. She will need a paracentesis. The chart was completed utilizing [employer] Speech voice recognition software. Grammatical errors, random word insertions, pronoun errors, and incomplete sentences are an occasional consequence of this system due to software limitations, ambient noise, and hardware issues. Any formal questions or concerns about the content, text, or information contained within the body of this dictation should be directly addressed to the physician for clarification. Consults Time Called: 2214 Consulting Physician: Dr. Joanne BRADLEY Returned Call: [id number] Discussed the patient's case. The patient will be evaluated for further treatment and disposition. Impression Primary Impression: Abdominal pain Additional Impressions: Ascites Metastatic cancer UTI (urinary tract infection) Scribe Attestation The scribe's documentation has been prepared under my direction and personally reviewed by me in its entirety. I confirm that the note above accurately reflects all work, treatment, procedures, and medical decision making performed by me. Departure Information Dispostion Being Evaluated By Hospitalist Nelda Diana M.D. (PCP) Patient Instructions My [facility] Problem Qualifiers Primary Impression: Abdominal pain Abdominal location: lower abdomen, unspecified Qualified Codes: R10.30 - Lower abdominal pain, unspecified Additional Impressions: Ascites Ascites type: malignant Qualified Codes: R18.0 - Malignant ascites UTI (urinary tract infection) Urinary tract infection type: acute cystitis Hematuria presence: without hematuria Qualified Codes: N30.00 - Acute cystitis without hematuria
[2016-10-31] VITALS (7 sets, daily range): BP systolic 110–157; BP diastolic 71–91; PULSE 71–84; TEMP 36.4–37.3; O2SAT 93–96; Ht 162.6 cm; Wt 91.7 kg
[2016-10-31] MEDS ORDERED: MoRPHine SULFATE 4 MG/ML 1 ML CARP\\VIAL IV PRN
[2016-10-31] MEDS: NSS + 20MEQ KCL 1000ML 1,000 ML IV SCH ×2 (03:23→12:59)
[2016-10-31] MEDS ORDERED: OXYCODONE HCL IR 5 MG TAB (IMMEDIATE RELEASE) PO PRN (05:00)
[2016-10-31] MEDS ORDERED: IV FLUIDS COMPLETED PRN (05:00)
[2016-10-31] MEDS ORDERED: ACETAMINOPHEN 500 MG TAB PO PRN (05:30)
[2016-10-31] MEDS ORDERED: HEPARIN SOD 5000 UNIT/0.5 ML CARP SQ SCH (06:00)
[2016-10-31] MEDS ORDERED: CYANOCOBALAMIN 500 MCG TAB (VIT B-12) PO SCH (08:00)
[2016-10-31] MEDS ORDERED: CHOLECALCIFEROL 400 INTER.UNIT TAB PO SCH (08:00)
[2016-10-31] MEDS ORDERED: POTASSIUM CHLORIDE 10 MEQ TABCR PO SCH (08:00)
[2016-10-31 08:47] LABS: BUN/CREATININE RATIO 17.3 (10-20); CALCIUM 7.8 mg/dl (8.5-10.1); CREATININE 0.68 mg/dl (0.60-1.20); MAGNESIUM 2.3 mg/dl (1.8-2.4); POTASSIUM 3.5 mmol/L (3.5-5.1)
[2016-10-31] MEDS ORDERED: SPIRONOLACTONE 25 MG TAB PO SCH (09:00)
--- NOTE | 2016-10-31 09:09 | Hospitalist Progress Note ---
Hospitalist Progress Note Date of Service Oct 31, 2016. Subjective Pt evaluation today including: conversation w/ patient, physical exam Objective Vital Signs Date Time Temp Pulse Resp B/P Pulse Ox O2 Delivery O2 Flow Rate FiO2 10/31/16 07:40 36.4 71 20 110/71 96 Room Air 10/31/16 01:32 36.4 84 16 157/91 95 Room Air 10/31/16 01:14 36.4 84 16 157/91 95 Room Air 10/30/16 23:49 76 18 120/75 96 Room Air 10/30/16 22:42 90 18 140/89 93 Room Air 10/30/16 21:35 93 10/30/16 21:07 63 18 103/72 96 Room Air 10/30/16 20:03 36.9 93 16 95 Room Air Laboratory Results Last 24 Hours Test 10/30/16 20:00 10/30/16 20:40 10/30/16 21:12 10/31/16 07:25 Urine Color ORANGE Urine Appearance CLOUDY Urine pH 5.0 Urine Specific [place] 1.039 Urine Protein 1+ Urine Glucose (UA) NEG Urine Ketones TRACE Urine Occult Blood NEG Urine Nitrite POS Urine Bilirubin 1+ Urine Urobilinogen NEG Urine Leukocyte Esterase TRACE Urine WBC (Auto) 1-5 /hpf Urine RBC (Auto) 0-4 /hpf Urine Hyaline Casts (Auto) 10-30 /lpf Urine Epithelial Cells (Auto) >30 /lpf Urine Bacteria (Auto) NEG Urine Renal Epithelial Cells /lpf Urine Pathogenic Casts 0-3 GRANULAR CASTS /lpf White Blood Count 9.34 K/uL Red Blood Count 5.18 M/uL Hemoglobin 15.3 g/dL Hematocrit 43.4 % Mean Corpuscular Volume 83.8 fL Mean Corpuscular Hemoglobin 29.5 pg Mean Corpuscular Hemoglobin Concent 35.3 g/dl Platelet Count 268 K/uL Mean Platelet Volume 11.1 fL Neutrophils (%) (Auto) 90.2 % Lymphocytes (%) (Auto) 5.8 % Monocytes (%) (Auto) 3.5 % Eosinophils (%) (Auto) 0.0 % Basophils (%) (Auto) 0.1 % Neutrophils # (Auto) 8.42 K/uL Lymphocytes # (Auto) 0.54 K/uL Monocytes # (Auto) 0.33 K/uL Eosinophils # (Auto) 0.00 K/uL Basophils # (Auto) 0.01 K/uL RDW Standard Deviation 37.5 fL RDW Coefficient of Variation 12.3 % Immature Granulocyte % (Auto) 0.4 % Immature Granulocyte # (Auto) 0.04 K/uL Sodium Level 139 mmol/L 141 mmol/L Potassium Level 3.8 mmol/L 3.5 mmol/L Chloride Level 106 mmol/L 112 mmol/L Carbon Dioxide Level 21 mmol/L 23 mmol/L Anion Gap 12.0 mmol/L 6.0 mmol/L Blood Urea Nitrogen 15 mg/dl 12 mg/dl Creatinine 1.00 mg/dl 0.68 mg/dl Est Creatinine Clear Calc Drug Dose 54.2 ml/min 79.7 ml/min Estimated GFR () 64.3 99.9 Estimated GFR (Non- 55.5 86.2 BUN/Creatinine Ratio 14.5 17.3 Random Glucose 169 mg/dl 98 mg/dl Calcium Level 8.7 mg/dl 7.8 mg/dl Total Bilirubin 0.5 mg/dl Direct Bilirubin < 0.1 mg/dl Aspartate Amino Transf (AST/SGOT) 14 U/L Alanine Aminotransferase (ALT/SGPT) 13 U/L Alkaline Phosphatase 70 U/L Total Protein 6.7 gm/dl Albumin 2.9 gm/dl Lipase 173 U/L Ammonia < 10.0 umol/L Magnesium Level 2.3 mg/dl
--- NOTE | 2016-10-31 10:19 | DIAGNOSTIC IMAGING REPORT ---
PARACENTESIS UNDER ULTRASOUND GUIDANCE CLINICAL HISTORY: ascites COMPARISON STUDY: No previous studies for comparison. FINDINGS: The risks, benefits, and alternatives to the procedure were discussed with the patient and her daughter. Written informed consent was obtained from the patient's daughter. Following real-time ultrasound localization, the skin was prepped and draped. Following local anesthesia with Xylocaine, the sheath paracentesis needle was inserted and approximately 4.8 liters of straw-colored fluid was removed by vacuum suction. A right lower quadrant approach was utilized. The patient tolerated the procedure well and left the department in satisfactory condition. IMPRESSION: Successful ultrasound-guided paracentesis with removal of approximately 4.8 liters of ascitic fluid. Electronically signed by: Juancarlos Watkins M.D. 10/31/2016 10:17 AM Dictated Date/Time: 10/31/2016 10:16 AM
--- NOTE | 2016-10-31 10:45 | Progress Note ---
Progress Note Date of Service Oct 31, 2016. Progress Note pt's pcp is [facility], and last admission [facility] in early this month. I explained to family and discussed staffs
--- NOTE | 2016-10-31 11:54 | Progress Note ---
Medicine Progress Note Date & Time of Visit: Oct 31, 2016 at 11:42. Subjective s/p Therapeutic Paracentesis today, drained 4.8L patient's daughters at the bedside who provided history and translation (they are agreeable to translate) abdominal pain significantly improved after paracentesis, denies nausea no BM yet, (+) flatus denies urinary symptoms denies chest pain, dyspnea, palpitations, dizziness no other symptoms Objective Last 8 Hrs Date Time Temp Pulse Resp B/P Pulse Ox O2 Delivery O2 Flow Rate FiO2 10/31/16 11:01 36.4 82 18 155/82 95 Room Air 10/31/16 08:00 Room Air 10/31/16 07:40 36.4 71 20 110/71 96 Room Air Physical Exam: General- oriented x 3, not in distress, speaks in sentences with no effort Head- atraumatic Eyes- EOMI, anicteric ENT- dry oral mucosa Neck- supple, no JVD, no adenopathy Lungs- clear to auscultation b/l Heart- normal rate, regular rhythm; no murmurs Abdomen- normal bowel sounds, non distended, soft, nontender Extremities- no pretibial edema, no calf tenderness; peripheral pulses intact Neuro- alert, oriented x 3; no gross focal neuro deficits Skin- warm & dry Laboratory Results: Last 24 Hours Test 10/30/16 20:00 10/30/16 20:40 10/30/16 21:12 10/31/16 07:25 Urine Color ORANGE Urine Appearance CLOUDY Urine pH 5.0 Urine Specific [place] 1.039 Urine Protein 1+ Urine Glucose (UA) NEG Urine Ketones TRACE Urine Occult Blood NEG Urine Nitrite POS Urine Bilirubin 1+ Urine Urobilinogen NEG Urine Leukocyte Esterase TRACE Urine WBC (Auto) 1-5 /hpf Urine RBC (Auto) 0-4 /hpf Urine Hyaline Casts (Auto) 10-30 /lpf Urine Epithelial Cells (Auto) >30 /lpf Urine Bacteria (Auto) NEG Urine Renal Epithelial Cells /lpf Urine Pathogenic Casts 0-3 GRANULAR CASTS /lpf White Blood Count 9.34 K/uL Red Blood Count 5.18 M/uL Hemoglobin 15.3 g/dL Hematocrit 43.4 % Mean Corpuscular Volume 83.8 fL Mean Corpuscular Hemoglobin 29.5 pg Mean Corpuscular Hemoglobin Concent 35.3 g/dl Platelet Count 268 K/uL Mean Platelet Volume 11.1 fL Neutrophils (%) (Auto) 90.2 % Lymphocytes (%) (Auto) 5.8 % Monocytes (%) (Auto) 3.5 % Eosinophils (%) (Auto) 0.0 % Basophils (%) (Auto) 0.1 % Neutrophils # (Auto) 8.42 K/uL Lymphocytes # (Auto) 0.54 K/uL Monocytes # (Auto) 0.33 K/uL Eosinophils # (Auto) 0.00 K/uL Basophils # (Auto) 0.01 K/uL RDW Standard Deviation 37.5 fL RDW Coefficient of Variation 12.3 % Immature Granulocyte % (Auto) 0.4 % Immature Granulocyte # (Auto) 0.04 K/uL Sodium Level 139 mmol/L 141 mmol/L Potassium Level 3.8 mmol/L 3.5 mmol/L Chloride Level 106 mmol/L 112 mmol/L Carbon Dioxide Level 21 mmol/L 23 mmol/L Anion Gap 12.0 mmol/L 6.0 mmol/L Blood Urea Nitrogen 15 mg/dl 12 mg/dl Creatinine 1.00 mg/dl 0.68 mg/dl Est Creatinine Clear Calc Drug Dose 54.2 ml/min 79.7 ml/min Estimated GFR () 64.3 99.9 Estimated GFR (Non- 55.5 86.2 BUN/Creatinine Ratio 14.5 17.3 Random Glucose 169 mg/dl 98 mg/dl Calcium Level 8.7 mg/dl 7.8 mg/dl Total Bilirubin 0.5 mg/dl Direct Bilirubin < 0.1 mg/dl Aspartate Amino Transf (AST/SGOT) 14 U/L Alanine Aminotransferase (ALT/SGPT) 13 U/L Alkaline Phosphatase 70 U/L Total Protein 6.7 gm/dl Albumin 2.9 gm/dl Lipase 173 U/L Ammonia < 10.0 umol/L Magnesium Level 2.3 mg/dl Date/Time Source Procedure Growth Status 10/31/16 00:00 Urine , Clean Catch Urine Culture Pending Received Assessment & Plan 76 year old female presenting with abdominal distention and weakness. RECURRENT ASCITES GASTRIC CANCER - s/p Paracentesis today, draining 4.8 L Spironolactone on hold as patient clinically dry will consult GI and Hem/Onc POSSIBLE UTI - urine cultures pending - on Ceftri IV Day 2 Hx.of Uterine Fibroids Endometrial Thickening outpatient biopsy recommended DVT prophylaxis resume heparin tomorrow as patient just had paracentesis today Disposition lives with daughter needs PT/OT Current Inpatient Medications: Current Inpatient Medications Medications (Trade) Dose Ordered Sig/Graciela Route Start Time Stop Time Status Last Admin Dose Admin Docusate Sodium (coLACE CAP) 100 mg BID PRN PO 10/30/16 23:00 11/29/16 22:59 Cholecalciferol (Vitamin D Tab) 400 inter.unit DAILY PO 10/31/16 08:00 11/30/16 08:59 10/31/16 08:25 400 INTER.UNIT Potassium Chloride (Klor-Con M10) 10 meq DAILY PO 10/31/16 08:00 11/30/16 08:59 10/31/16 08:25 10 MEQ Senna (Senokot Tab) 8.6 mg BID PRN PO 10/30/16 23:00 11/29/16 22:59 Cyanocobalamin (Vitamin B-12 Tab) 1,000 mcg DAILY PO 10/31/16 08:00 11/30/16 08:59 10/31/16 08:25 1,000 MCG Heparin Sodium (Porcine) (Heparin Sq 5000 Unit/0.5ml) 5,000 unit Q8H SQ 10/31/16 06:00 11/30/16 05:59 Acetaminophen (Tylenol Tab) 650 mg Q12H PRN PO 10/30/16 23:00 11/29/16 22:59 Al Hydrox/Mg Hydrox/Simethicone (Maalox Max Susp) 15 ml Q4H PRN PO 10/30/16 23:00 11/29/16 22:59 Magnesium Hydroxide (Milk Of Magnesia Susp) 30 ml Q6H PRN PO 10/30/16 23:00 11/29/16 22:59 Polyethylene (Miralax Powder Packet) 17 gm DAILY PRN PO 10/30/16 23:00 11/29/16 22:59 Ondansetron HCl 4 mg 4 mg Q6H PRN IV 10/30/16 23:00 11/29/16 22:59 Potassium Chloride/Sodium Chloride 1,000 ml @ 100 mls/hr Q10H IV 10/31/16 02:30 11/30/16 02:29 10/31/16 03:23 100 MLS/HR Ceftriaxone Sodium/Dextrose (Rocephin Inj/ Dextrose Add-[place] 50ML) 50 ml @ 100 mls/hr Q24H IV 10/31/16 22:00 11/04/16 21:59 Morphine Sulfate (MoRPHine SULFATE INJ) 4 mg Q3H PRN IV 10/31/16 00:00 11/14/16 00:00 Miscellaneous (Iv Fluids Completed) 1 ea PRN PRN N/A 10/31/16 05:00 10/31/17 04:59 Acetaminophen (Tylenol Tab) 500 mg HS PRN PO 10/31/16 05:30 11/30/16 05:29 Diphenhydramine HCl (Benadryl Cap) 25 mg HS PRN PO 10/31/16 05:30 11/30/16 05:29
--- NOTE | 2016-10-31 15:57 | Oncology Consultation ---
Oncology/Heme Consultation Date of Consultation: Oct 31, 2016. 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 Blokc is an otherwise healthy 76 year old woman who has developed recurrent ascites over the last month or so. She speaks Swiss only and her daughter translated for us and provided much of the history. Prior to September, she was largely asymptomatic, aside from some chronic osteoarthritis. She lives independently and is active around the house. In the last month or so, she has declined, with worsening abdominal distention. Interestingly, she denies other complaints, such as epigastric pain, GI bleeding, nausea, vomiting, or dysphagia. She has now had 3 large volume paracenteses (each around 5L), most recently earlier today. She had an EGD 10/26/16 with a biopsy revealing gastric carcinoma with signet ring features. 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 Past Medical/Surgical History Medical Problems: (1) Abdominal pain Status: Acute (2) Abdominal pain Status: Acute (3) Ascites Status: Chronic (4) Metastatic cancer Status: Acute (5) SOB (shortness of breath) Status: Acute (6) UTI (urinary tract infection) Status: Acute (7) UTI (urinary tract infection) Status: Acute Family History Patient reports no known family medical history. Social History Smoking Status: Never Smoker Drug Use: none Marital Status: Occupation Status: retired Allergies Coded Allergies: NO KNOWN DRUG ALLERGIES (Verified Allergy, Unknown, ., 10/30/16) Home Medications Scheduled Cyanocobalamin (B12), 1,000 MCG PO DAILY Ergocalciferol (Vitamin D 06989 Unit), 50,000 UNIT PO WK Potassium Ext Rel (Klor-Con), 10 MEQ PO DIRECTED Spironolactone (Aldactone), 25 MG PO DAILY Scheduled PRN Acetaminophen/Diphenhydramine (Tylenol Pm), 1 TAB PO HS PRN for PRN Docusate Sodium (Colace), 100 MG PO BID PRN for Constipation Polyethylene Glycol 3350 (Miralax), 17 GM PO DAILY PRN for Constipation Senna (Senna Lax), 1 TAB PO BID PRN for Constipation Current Inpatient Medications Current Inpatient Medications Medications (Trade) Dose Ordered Sig/Graciela Route Start Time Stop Time Status Last Admin Dose Admin Docusate Sodium (coLACE CAP) 100 mg BID PRN PO 10/30/16 23:00 11/29/16 22:59 Cholecalciferol (Vitamin D Tab) 400 inter.unit DAILY PO 10/31/16 08:00 11/30/16 08:59 10/31/16 08:25 400 INTER.UNIT Potassium Chloride (Klor-Con M10) 10 meq DAILY PO 10/31/16 08:00 11/30/16 08:59 10/31/16 08:25 10 MEQ Senna (Senokot Tab) 8.6 mg BID PRN PO 10/30/16 23:00 11/29/16 22:59 Cyanocobalamin (Vitamin B-12 Tab) 1,000 mcg DAILY PO 10/31/16 08:00 11/30/16 08:59 10/31/16 08:25 1,000 MCG Acetaminophen (Tylenol Tab) 650 mg Q12H PRN PO 10/30/16 23:00 11/29/16 22:59 Al Hydrox/Mg Hydrox/Simethicone (Maalox Max Susp) 15 ml Q4H PRN PO 10/30/16 23:00 11/29/16 22:59 Magnesium Hydroxide (Milk Of Magnesia Susp) 30 ml Q6H PRN PO 10/30/16 23:00 11/29/16 22:59 Polyethylene (Miralax Powder Packet) 17 gm DAILY PRN PO 10/30/16 23:00 11/29/16 22:59 Ondansetron HCl 4 mg 4 mg Q6H PRN IV 10/30/16 23:00 11/29/16 22:59 Potassium Chloride/Sodium Chloride 1,000 ml @ 100 mls/hr Q10H IV 10/31/16 02:30 11/30/16 02:29 10/31/16 12:59 100 MLS/HR Ceftriaxone Sodium/Dextrose (Rocephin Inj/ Dextrose Add-[place] 50ML) 50 ml @ 100 mls/hr Q24H IV 10/31/16 22:00 11/04/16 21:59 Morphine Sulfate (MoRPHine SULFATE INJ) 4 mg Q3H PRN IV 10/31/16 00:00 11/14/16 00:00 Miscellaneous (Iv Fluids Completed) 1 ea PRN PRN N/A 10/31/16 05:00 10/31/17 04:59 Acetaminophen (Tylenol Tab) 500 mg HS PRN PO 10/31/16 05:30 11/30/16 05:29 Diphenhydramine HCl (Benadryl Cap) 25 mg HS PRN PO 10/31/16 05:30 11/30/16 05:29 Review of Systems Constitutional: No fatigue, No weight loss ENT: No trouble swallowing Respiratory: No cough, No shortness of breath Cardiovascular: No chest pain Abdomen: + problem reported (abdominal distention), No GI bleeding, No nausea, No pain Musculoskeletal: + joint pain (chronic osteoarthritis) Neurologic: No numbness/tingling, No weakness Hematologic / Lymphatic: No abnormal bleeding/bruising Physical Exam Date Time Temp Pulse Resp B/P Pulse Ox O2 Delivery O2 Flow Rate FiO2 10/31/16 15:08 37.3 78 20 111/72 93 Room Air 10/31/16 11:45 36.7 77 20 145/84 93 Room Air 10/31/16 11:01 36.4 82 18 155/82 95 Room Air 10/31/16 08:00 Room Air 10/31/16 07:40 36.4 71 20 110/71 96 Room Air 10/31/16 01:32 36.4 84 16 157/91 95 Room Air 10/31/16 01:14 36.4 84 16 157/91 95 Room Air 10/30/16 23:49 76 18 120/75 96 Room Air 10/30/16 22:42 90 18 140/89 93 Room Air 10/30/16 21:35 93 10/30/16 21:07 63 18 103/72 96 Room Air 10/30/16 20:03 36.9 93 16 95 Room Air General Appearance: no apparent distress Respiratory/Chest: chest non-tender, lungs clear Cardiovascular: regular rate, rhythm Abdomen/GI: non tender, soft, + distended Extremities/Musculoskelatal: no pedal edema, non-tender Neurologic/Psych: alert Skin: warm/dry, no rash Laboratory Results Last 24 Hours Test 10/30/16 20:00 10/30/16 20:40 10/30/16 21:12 10/31/16 07:25 Urine Color ORANGE Urine Appearance CLOUDY Urine pH 5.0 Urine Specific [place] 1.039 Urine Protein 1+ Urine Glucose (UA) NEG Urine Ketones TRACE Urine Occult Blood NEG Urine Nitrite POS Urine Bilirubin 1+ Urine Urobilinogen NEG Urine Leukocyte Esterase TRACE Urine WBC (Auto) 1-5 /hpf Urine RBC (Auto) 0-4 /hpf Urine Hyaline Casts (Auto) 10-30 /lpf Urine Epithelial Cells (Auto) >30 /lpf Urine Bacteria (Auto) NEG Urine Renal Epithelial Cells /lpf Urine Pathogenic Casts 0-3 GRANULAR CASTS /lpf White Blood Count 9.34 K/uL Red Blood Count 5.18 M/uL Hemoglobin 15.3 g/dL Hematocrit 43.4 % Mean Corpuscular Volume 83.8 fL Mean Corpuscular Hemoglobin 29.5 pg Mean Corpuscular Hemoglobin Concent 35.3 g/dl Platelet Count 268 K/uL Mean Platelet Volume 11.1 fL Neutrophils (%) (Auto) 90.2 % Lymphocytes (%) (Auto) 5.8 % Monocytes (%) (Auto) 3.5 % Eosinophils (%) (Auto) 0.0 % Basophils (%) (Auto) 0.1 % Neutrophils # (Auto) 8.42 K/uL Lymphocytes # (Auto) 0.54 K/uL Monocytes # (Auto) 0.33 K/uL Eosinophils # (Auto) 0.00 K/uL Basophils # (Auto) 0.01 K/uL RDW Standard Deviation 37.5 fL RDW Coefficient of Variation 12.3 % Immature Granulocyte % (Auto) 0.4 % Immature Granulocyte # (Auto) 0.04 K/uL Sodium Level 139 mmol/L 141 mmol/L Potassium Level 3.8 mmol/L 3.5 mmol/L Chloride Level 106 mmol/L 112 mmol/L Carbon Dioxide Level 21 mmol/L 23 mmol/L Anion Gap 12.0 mmol/L 6.0 mmol/L Blood Urea Nitrogen 15 mg/dl 12 mg/dl Creatinine 1.00 mg/dl 0.68 mg/dl Est Creatinine Clear Calc Drug Dose 54.2 ml/min 79.7 ml/min Estimated GFR () 64.3 99.9 Estimated GFR (Non- 55.5 86.2 BUN/Creatinine Ratio 14.5 17.3 Random Glucose 169 mg/dl 98 mg/dl Calcium Level 8.7 mg/dl 7.8 mg/dl Total Bilirubin 0.5 mg/dl Direct Bilirubin < 0.1 mg/dl Aspartate Amino Transf (AST/SGOT) 14 U/L Alanine Aminotransferase (ALT/SGPT) 13 U/L Alkaline Phosphatase 70 U/L Total Protein 6.7 gm/dl Albumin 2.9 gm/dl Lipase 173 U/L Ammonia < 10.0 umol/L Magnesium Level 2.3 mg/dl Assessment & Plan Ms. 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 This is a very aggressive variant of gastric cancer with a poor prognosis. Management would involve systemic chemotherapy and she was in good health and had a reasonable performance status prior to all this, so I think she would be a candidate if she's interested. In the meantime, I would consider a peritoneal drain to help manage her recurring ascites. I also would order a CT of her chest to complete her staging. Once we have more definitive control of her ascites, I can see her in clinic to discuss chemotherapy, provided she is interested. Her family will discuss this with her today and tonight. The alternative would be hospice and I anticipate her life expectancy would be on the order of weeks to a month or two at most, particularly given the pace of progression of her disease already.
--- NOTE | 2016-10-31 16:13 | GASTROINTESTINAL CONSULTATION ---
DATE: 10/31/2016 GASTROINTESTINAL CONSULTATION NOTE CHIEF COMPLAINT: Malignant ascites, right upper quadrant abdominal pain, and abdominal distention. HISTORY OF PRESENT ILLNESS: Ms. Block is a 76-year-old white female who speaks Bruneian. Her family including her daughter whom I have spoken to yesterday as well as previously is present in the room today. The patient after our discussion yesterday with the results of her EGD that revealed a poorly differentiated signet ring cell carcinoma as a likely source of the malignant ascites recently identified, I had recommended that she present to the Emergency Room because of increased difficulty breathing because of the ascites. The patient underwent a paracentesis earlier today and she actually received some relief with her breathing as a result. The patient is admitted for further workup including oncology consultation and management of her malignant ascites. PAST MEDICAL HISTORY: Includes possible uterine cancer, gastric carcinoma, recently diagnosed with malignant ascites. She also has a prior cataract, but otherwise no other significant chronic medical conditions. HOME MEDICATIONS: Include B12, ergocalciferol, potassium supplements and spironolactone. ALLERGIES: She has no known drug allergies. FAMILY HISTORY: Otherwise noncontributory. SOCIAL HISTORY: The patient denies tobacco or alcohol use, is and lives with her children. REVIEW OF SYSTEMS: Otherwise noncontributory based on 14-point exam. There is no evidence of encephalopathy. Chief complaint on presentation was difficulty in breathing related to the ascites. There is also aspect abdominal pain. PHYSICAL EXAMINATION: GENERAL: Today shows a well-developed female resting comfortably in bed. She is status post paracentesis for which they removed approximately 5 liters. This did improve her respiratory status considerably by her daughter's report. HEENT: The patient's sclerae are anicteric. Conjunctiva moist. Oral mucosa moist. HEART: Normal S1, S2. ABDOMEN: Soft. There is a firm area in the right upper quadrant that is nodular and hard, in the vicinity of an abdominal wall, ventral wall hernia; however, this may represent a primary mass effect or carcinomatosis. EXTREMITIES: Show trace edema bilaterally. Lungs are clear to auscultation overall. NEUROLOGIC: Nonfocal. SKIN: There are no rashes. LABORATORY STUDIES: Showed a cloudy urine with many epithelial cells, 1-5 white cells. There is trace ketones, positive for nitrites, and trace positive leukocyte esterase. Labs last night, 9.3, hemoglobin 15.3, and platelets 268,000. BUN and creatinine are 15 and 1.0. LFTs are normal. Total bilirubin 0.5, direct 0.1, and alkaline phosphatase is 70, ALT 13, AST 14, lipase 173. Ammonia is less than 10. IMAGING DATA: Chest x-ray showed no acute infectious processes. There is omental nodularity and edema identified on CT imaging with suspected carcinomatosis, has a nonspecific gastric wall thickening with a moderate amount of abdominal ascites. 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 CT suggests perhaps omental implants with moderate ascites, just underwent paracentesis. Malignant ascites, I spoke with the patient's daughter at length who helped to translate and convey these issues to the patient. Malignant ascites as a challenge, as this generally responds poorly to diuretic therapy unless there is a component of portal hypertension. The optimal way is to control the tumor burden if possible and to this end, oncology evaluation is essential and is pending at this time. Other alternatives to managing the ascites chronically would be repeated paracentesis. Apparently, this has required shortened intervals between events because of the accumulation. It is possible that a peritoneal catheter for home decompression may be an option and would consider a surgical evaluation if there are no oncologic choices for the patient. Diuretic therapy if you should be cautiously applied given the potential for intravascular depletion, electrolyte abnormalities, and decreased intravascular tone. We will follow along with you. All questions answered for the patient's daughter. Thank you for allowing me to participate in this pleasant lady's care. Sincerely, MAURY
--- NOTE | 2016-10-31 18:53 | Progress Note ---
Progress Note Date of Service Oct 31, 2016. Progress Note attending addendum RN informed me that patient's family would like to speak with me updated them on the recommendations of Dr. Jessica Blanca and Dr. Corcoran, including plan for possible peritoneal drain patient's daughter would like her to be discharged today as they would like to keep her appointment with her PCP and Dr. Cassidy scheduled for tomorrow advised them that I would recommend that the patient stay and be observed overnight, received IV fluids and be evaluated by Gen Surg tomorrow for the peritoneal drain to be done promptly patient's daughter states she would rather have all the evaluations done as an outpatient VS overall stable, patient in good spirits, asked patient to walk and she ambulated in the room with no problems family reports she is back to baseline she will be with her daughter all the time, with 24 hour supervision advised them to always assist patient with walking, return to er immediately if with weakness, nausea, dizziness, fever/chills. etc. all questions answered patient verbalized understanding, and is comfortable with plan of care, she is grateful for the care Devin Hurtado MD
--- NOTE | 2016-10-31 18:58 | Discharge Instructions ---
Discharge Instructions Date of Service Oct 31, 2016. Admission Reason for Admission: Dehydration, Weakness Discharge Discharge Diagnosis / Problem: Recurrent Ascites Discharge Goals Goal(s): Diagnostic testing, Therapeutic intervention Activity Recommendations Activity Limitations: as noted below (no heavy exertion until re-evaluated by primary care physician, always ambulate with assistance, patient needs 24 hour supervision) . Instructions / Follow-Up Instructions / Follow-Up PLEASE CALL PRIMARY CARE PHYSICIAN OR RETURN TO ER IMMEDIATELY IF WITH RECURRENCE OF SYMPTOMS, WEAKNESS, DIZZINESS, FEVER/CHILLS, INCREASE ABDOMINAL GIRTH. HOLD SPIRONOLACTONE AND POTASSIUM SUPPLEMENT FOR NOW. FOLLOW UP WITH DR. SUH AND DR. STAHL SCHEDULED TOMORROW. Current Hospital Diet Patient's current hospital diet: Regular Diet Discharge Diet Recommended Diet: Regular Diet Procedures Procedures Performed: PARACENTESIS Pending Studies Studies pending at discharge: yes List of pending studies: REPEAT POTASSIUM LEVEL Medical Emergencies . Who to Call and When: Medical Emergencies: If at any time you feel your situation is an emergency, please call 911 immediately. . Non-Emergent Contact Non-Emergency issues call your: Primary Care Provider Call Non-Emergent contact if: you have a fever, your pain is not controlled, you have any medication questions . . "Provider Documentation" section prepared by Devin Hurtado. . VTE Core Measure Inpt VTE Proph given/why not?: Unfractionated heparin SQ
--- NOTE | 2016-10-31 19:09 | Discharge Summary ---
Discharge Summary Date of Service Oct 31, 2016. 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 Procedures: 10/31/16: S/P PARACENTESIS 4.8 L 10/30/16:" CT SCAN OF THE ABDOMEN AND PELVIS WITHOUT IV CONTRAST CLINICAL HISTORY: Generalized abdominal pain. Ascites. Reported history of gastric cancer. COMPARISON STUDY: Abdominal CT dated 10/06/2016. TECHNIQUE: CT scan of the abdomen and pelvis is performed from the lung bases to the proximal femora. Images are reviewed in the axial, sagittal, and coronal planes. IV contrast was not administered for this examination as per the referring clinician. Note that the examination is significantly suboptimal without IV and oral contrast. Automated dose control exposure was utilized. CT DOSE: 686.55 mGy.cm FINDINGS: Lung bases: The heart is normal in size and without pericardial effusion. The coronary arteries are calcified. The lung bases are clear. Liver: The unenhanced liver is cirrhotic in morphology and heterogeneous in attenuation. There is nodularity of the hepatic surface contour. A 12 mm low-density lesion is again seen in the right hepatic lobe on image #59. There is no intrahepatic biliary ductal dilatation. Gallbladder: Normal as visualized. Spleen: Normal in size and attenuation. Pancreas: Atrophic and grossly unremarkable. Adrenal glands: Unremarkable. Kidneys: The unenhanced kidneys demonstrate cortical atrophy and are without hydronephrosis. There are no renal calculi identified. Lobulated/septated cysts arises from the upper pole the right kidney. These measure up to 6.5 cm in aggregate dimension. A 4 cm cyst arises from the right lower pole. Abdominal vasculature: The abdominal aorta is normal in course and caliber. Stomach and bowel: There is a tiny hiatal hernia. Nonspecific gastric wall thickening is identified. The duodenum is normal in configuration. No bowel obstruction is seen. There is mild colonic diverticulosis without CT evidence of acute diverticulitis. The appendix is not visualized. Peritoneum: There is a moderate volume of abdominopelvic ascites. No intraperitoneal free air is seen. Omental edema and nodularity is identified and may represent carcinomatosis. Lymphadenopathy: None. Pelvic viscera: The bladder is decompressed and not well evaluated. Endometrial thickening is again suggested. No adnexal lesion is seen. Skeletal structures: The skeletal structures are osteopenic. There is moderate to advanced lumbosacral spondylosis. Advanced arthritic change is present in the hips. Sclerosis is noted involving the sacroiliac joints. No lytic or blastic lesions are seen. IMPRESSION: 1. Significantly suboptimal examination without oral and IV contrast. 2. No acute infectious or inflammatory findings are clearly seen in the abdomen or pelvis. 3. Cirrhotic liver morphology. 4. Moderate volume of abdominopelvic ascites. 5. There is nonspecific gastric wall thickening. This may correspond to the reported history of gastric cancer but is not well evaluated by CT. 6. Omental nodularity and edema are identified. Carcinomatosis is not excluded given the reported history of gastric cancer. 7. Endometrial thickening is again suggested. 8. Additional findings as above. Electronically signed by: Braydon Mace M.D. 10/30/2016 9:43 PM Consultations: ONCOLOGIST DR. Jessica TAPIA, SCREW EYE ASSEMBLER DR. CORCORAN Pending Studies/Follow-Up: SPIRONOLACTONE AND K SUPPLEMENT DISCONTINUED PER GI SERVICE RECOMMENDATIONS; K LEVEL BORDERLINE : 3.5, MONITOR OUTPATIENT; PLEASE REFER TO HOSPITAL COURSE BELOW FOR FURTHER DETAILS. Medication Reconciliation Continued Medications: Acetaminophen/Diphenhydramine (Tylenol Pm) 500 Mg/25 Mg Tab 1 TAB PO HS PRN for PRN, TAB Cyanocobalamin (B12) 1,000 Mcg Tab 1000 MCG PO DAILY Docusate Sodium (Colace) 100 Mg Cap 100 MG PO BID PRN for Constipation for 15 Days, #30 CAP Ergocalciferol (Vitamin D 91038 Unit) 50,000 Unit Cap 22181 UNIT PO WK, CAP Polyethylene Glycol 3350 (Miralax) 1 Pow Pow 17 GM PO DAILY PRN for Constipation Senna (Senna Lax) 8.6 Mg Tab 1 TAB PO BID PRN for Constipation Discontinued Medications: Potassium Ext Rel (Klor-Con) 20 Meq Tabcr 10 MEQ PO DIRECTED, TAB TAKE 3 X WEEKLY NEEDED. Spironolactone (Aldactone) 25 Mg Tab 25 MG PO DAILY, TAB Admission Information HPI (per Admitting provider): 76 y/o F Hx recently diagnosed metastatic gastric CA with ascites, uterine CA. Pt is requiring periodic drainage of her ascites due to pain, and SOB related to distention. She was last drained 10/20. Her family has brought her in due to recurrence of her ascites, abdominal pain, poor PO intake and oliguria. She is apparently unable to adequately mobilize at present due to her ascites. She has lost significant weight since the initial diagnosis which took place in late September. She has not yet consulted with an oncologist although she has an appt for the coming week. She denies fevers, N/V/D or dysuria. Physical Exam (per Admitting): General Appearance: WD/WN, no apparent distress, + pertinent finding ( Lethargic elderly F - no distress) Head: normocephalic, atraumatic Eyes: normal inspection, PERRL, EOMI ENT: normal ENT inspection, hearing grossly normal, TMs normal, pharynx normal Neck: supple Respiratory/Chest: chest non-tender, lungs clear, normal breath sounds, no respiratory distress, no accessory muscle use Cardiovascular: regular rate, rhythm, no edema, no gallop Abdomen/GI: normal bowel sounds, + pertinent finding (Significantly distended abdmomen) Back: normal inspection, no CVA tenderness Extremities/Musculoskelatal: normal inspection, no calf tenderness, normal capillary refill, no pedal edema, normal range of motion Neurologic/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 Mosher recommends evaluation for peritoneal catheter and CT chest, then chemotherapy GI consulted, Dr. Corcoran also recommends possible peritoneal catheter to address recurrent ascites, be cautious with diuretics - patient's daughter requested for early discharge and prefers to continue management on an outpatient basis patient has a scheduled ff up with Oncologist Dr. Cassidy and PCP Dr. Hussein tomorrow POSSIBLE UTI - urine cultures pending - given 2 days of Ceftri IV afebrile, no leukocytosis ff up urine cultures Hx.of Uterine Fibroids Endometrial Thickening outpatient biopsy recommended Disposition d/c home today patient lives with daughter ff up with PCP and Oncology tomorrow Total time spent on discharge = 40 MINUTES This includes examination of the patient, discharge planning, medication reconciliation, and communication with other providers. Discharge Instructions Discharge Instructions Date of Service Oct 31, 2016. Admission Reason for Admission: Dehydration, Weakness Discharge Discharge Diagnosis / Problem: Recurrent Ascites Discharge Goals Goal(s): Diagnostic testing, Therapeutic intervention Activity Recommendations Activity Limitations: as noted below (no heavy exertion until re-evaluated by primary care physician, always ambulate with assistance, patient needs 24 hour supervision) . Instructions / Follow-Up Instructions / Follow-Up PLEASE CALL PRIMARY CARE PHYSICIAN OR RETURN TO ER IMMEDIATELY IF WITH RECURRENCE OF SYMPTOMS, WEAKNESS, DIZZINESS, FEVER/CHILLS, INCREASE ABDOMINAL GIRTH. HOLD SPIRONOLACTONE AND POTASSIUM SUPPLEMENT FOR NOW. FOLLOW UP WITH DR. CASSIDY AND DR. HUSSEIN SCHEDULED TOMORROW. Current Hospital Diet Patient's current hospital diet: Regular Diet Discharge Diet Recommended Diet: Regular Diet Procedures Procedures Performed: PARACENTESIS Pending Studies Studies pending at discharge: yes List of pending studies: REPEAT POTASSIUM LEVEL Medical Emergencies . Who to Call and When: Medical Emergencies: If at any time you feel your situation is an emergency, please call 911 immediately. . Non-Emergent Contact Non-Emergency issues call your: Primary Care Provider Call Non-Emergent contact if: you have a fever, your pain is not controlled, you have any medication questions . . "Provider Documentation" section prepared by Devin Hurtado. . VTE Core Measure Inpt VTE Proph given/why not?: Unfractionated heparin SQ
[2016-10-31] MEDS ORDERED: CEFTRIAXONE SOD INJ 1 GM in DEXTROSE 5% ADD-VANTAGE 50ML 50 ML IV SCH (22:00)
[2016-11-10] MEDS ORDERED: OXYC-57 PO (11:13)
== END 2016-10-31 19:20 | disposition home or self-care (01) | DRG 375 ==
LOC: ENRESERVTM → ENRESERVDT → C.EDB 19:55 → C.MS4W 23:49 → EDBEDREQ 10-31 00:15 → OBSVTOIN 10-31 09:46
PROVIDERS: ADMIT Internal Medicine; ATTEND Internal Medicine
PROC: 0W9G3ZZ Drainage of Peritoneal Cavity, Percutaneous Approach (ICD-10-PCS; principal; 2016-10-31)
DX: C16.9 Malignant neoplasm of stomach, unspecified (principal); R18.0 Malignant ascites; N39.0 Urinary tract infection, site not specified; Z51.5 Encounter for palliative care; Z85.42 Personal history of malignant neoplasm of other parts of uterus; Z79.899 Other long term (current) drug therapy; Z98.49 Cataract extraction status, unspecified eye; Z96.1 Presence of intraocular lens

== ENCOUNTER → 2016-11-10 | Day surgery (SDC) | payer OTHER ==
[~2016-11-10] VITALS: Ht 165.1 cm; Wt 85.0 kg
[~2016-11-10] MED LIST changes: +ALTEPLASE, RECOMBINANT 1 MG/ML 2 ML VIAL IV ONE; +ATROPINE SULFATE 0.1 MG/ML 5ML SYR IV PRN; +BUPIVACAINE 0.5 % 5 MG/1 ML MPF 30ML VIAL ONE; +BUPIVACAINE/EPINEPHRINE 0.5% MPF 1:200,000 30 ML VIAL ONE; +CEFAZOLIN 2000 MG/60 ML D5W 60 ML IV SCH; +CEPH500C PO; +CISATRACURIUM BESYLATE IV SOLN 2 MG/ML 10 ML VIAL ONE; +CLOT10TR2 MT; +DEXA1TAB16 PO; +DEXAMETHASONE SOD INJ 4 MG/ML VIAL ONE; +DIPH-437 PO; +EpHEDrine SULFATE INJ 50 MG/ML AMP IV PRN; +FENTANYL CITRATE INJ 50 MCG/1 ML 2 ML VIAL IV PRN; +FENTANYL CITRATE INJ 50 MCG/1 ML 2 ML VIAL ONE; +GLYCOPYRROLATE INJ 0.2 MG/ML VIAL ONE; +HEPARIN SOD (PORCINE) 1000 UNIT/ML 10 ML VIAL ONE; +HEPARIN SOD (PORCINE) 5000 UNIT/ML 1 ML VIAL ONE; +HYDROmorphone INJ 0.5 MG/0.5 ML SYR IV PRN; +LABETALOL HCL IV 5 MG/ML 20ML IV PRN; +LACT10SO17 PO; +LACTATED RINGER'S 1000ML IV SCH; +LIDOCAINE HCL 1% 20 ML VIAL ONE; +LIDOCAINE HCL 2% 2 ML VIAL (20MG/ML) ONE; -MELO15TA4 PO; +MEPERIDINE HCL 25 MG/ML CARP IV PRN; +MIDAZOLAM HCL 1 MG/ML 2ML VIAL ONE; -MULT-922 PO; +NEOSTIGMINE METHYLSULFATE 5 MG/5 ML SYR ONE; +NSS 1000ML IV SCH; +ONDANSETRON INJ 2 MG/ML 2 ML VIAL IV PRN; +ONDANSETRON INJ 2 MG/ML 2 ML VIAL ONE; +OXYC-57 PO; +POTA10CA28 PO; -POTA20TA16 PO; +PROC1TAB5 PO; +PROPOFOL IV EMULSION 10 MG/ML 20 ML VIAL IV ONE; +SODIUM BICARBONATE 8.4% INJ 50 MEQ/50 ML VIAL ONE
[2016-11-10 08:55] VITALS: BP 131/77; PULSE 86; TEMP 37.1; O2SAT 95; Ht 165.1 cm; Wt 85.0 kg
--- NOTE | 2016-11-10 09:34 | History & Physical Bridge Note ---
H&P Re-Evaluation Bridge Note: I have examined the patient, reviewed the History & Physical and in the interval since the performance of the History & Physical I have noted the following changes of clinical significance: No changes noted
--- NOTE | 2016-11-10 10:51 | DIAGNOSTIC IMAGING REPORT ---
INTRAOPERATIVE RADIOGRAPH CLINICAL HISTORY: Infusion port placement. Fluoroscopy time: 29 seconds. FINDINGS: A single spot fluoroscopic view of the right upper chest is obtained. Correlation is made with chest x-ray dated 10/06/2016. An endotracheal tube is in place. A right internal jugular central venous infusion port is new from previous. The tip of the catheter projects over the SVC. There is no evidence of pneumothorax on this fluoroscopic view. IMPRESSION: Intraoperative image from right internal jugular central venous infusion port placement as above. Electronically signed by: Braydon Mace M.D. 11/10/2016 10:49 AM Dictated Date/Time: 11/10/2016 10:48 AM
--- NOTE | 2016-11-10 11:16 | [facility] Post Operative Brief Note ---
Immediate Operative Summary Operative Date November 10, 2016. Pre-Operative Diagnosis Gastric Signet cell adenocarcinoma Post-Operative Diagnosis Gastric Signet cell adenocarcinoma Procedure(s) Performed Infusaport insertion into right internal jugular, USN localization of right internal jugular vein Fluoro for postioning Insertion of peritoneal dialysis catheter Surgeon Dr Jamison Galan Hematology Nurse Educator Surgeon(s) Faye Lowery PA-C Estimated Blood Loss 5ml for Infusaport, 10ml for peritoneal dialysis catheter Findings Tip of catheter in distal SVC, PD catheter with good outflow Specimens None per surgeon Anesthesia Gen Complication(s) None Disposition Recovery Room / PACU
--- NOTE | 2016-11-10 11:17 | Discharge Instructions ---
Discharge Instructions Date of Service November 10, 2016. Visit Reason for Visit: Gastric Cancer Discharge Discharge Diagnosis / Problem: Gastric cancer Discharge Goals Goal(s): Decrease discomfort, Therapeutic intervention Activity Recommendations Activity Limitations: per Instructions/Follow-up section Anesthesia . Post Anesthesia Instructions: If you have had General Anesthesia or IV Sedation: * Do not drive today. * Resume driving when surgeon permits. * Do not make important decisions or sign legal documents today. * Call surgeon for: 1. Temperature elevations greater than 101 degrees F. 2. Uncontrollable pain. 3. Excessive bleeding. 4. Persistent nausea and vomiting. 5. Medication intolerance (nausea, vomiting or rash). * For nausea and vomiting use only clear liquids such as: tea, soda, bouillon until nausea subsides, then gradually increase diet as tolerated. * If you have any concerns or questions, call your surgeon's office. If physician is unavailable and it is an emergency, call 911 or go to the nearest emergency room. . Instructions / Follow-Up Instructions / Follow-Up Call [phone] to schedule a follow up appointment if one not already scheduled. ACTIVITY RECOMMENDATIONS: See Above SPECIAL CARE INSTRUCTIONS: Call your doctor if: * Temperature above 101 degrees * Pain not relieved by pain medicine ordered * There is increased drainage or redness from any incision * You have any unanswered questions or concerns. Diet Recommendations Recommended Home Diet: resume previous diet Procedures Procedures Performed: Infusaport insertion into right internal jugular, USN localization of right internal jugular vein Fluoro for postioning Insertion of peritoneal dialysis catheter Pending Studies Studies pending at discharge: no Medical Emergencies . Who to Call and When: Medical Emergencies: If at any time you feel your situation is an emergency, please call 911 immediately. . Non-Emergent Contact Non-Emergency issues call your: Surgeon . . "Provider Documentation" section prepared by Jamison Galan. .
--- NOTE | 2016-11-10 11:53 | OPERATIVE REPORT ---
DATE OF OPERATION: 11/10/2016 PREOPERATIVE DIAGNOSIS: Gastric carcinoma. POSTOPERATIVE DIAGNOSIS: Same. PROCEDURE: 1. Insertion of right internal jugular vein Infusaport. 2. Ultrasound localization right internal jugular vein. 3. Fluoroscopic imaging for positioning. 4. Insertion of peritoneal dialysis catheter. SURGEON: Dr. Galan. RESIDENTIAL SALES REPRESENTATIVE: Faye Lowery PA-C. PROCEDURE INDICATIONS: The patient is a 76-year-old female who has a gastric carcinoma. She is in need of a port for chemotherapy and also PD catheter to aid in the control of her ascites being that she has to undergo paracentesis recently at least once a week if not twice a week. The family and patient understood the risks, options and benefits and agreed to go ahead with this procedure. This was discussed with them via a Polish nat instructor. The patient was taken to the operating room and placed in supine position. After right side of the neck and chest wall were prepped and draped in a sterile manner, a transverse incision was made. This was done after general anesthesia was accomplished. Incision was then deepened. Using electrocautery, an inferior pocket was made. Next, ultrasound was used to locate the internal jugular vein on the right side. It was of good caliber, compressed easily and was patent. Percutaneous puncture was then made under ultrasound guidance. Wire was passed centrally. The catheter was then brought to the operative field. A trocar was used to pass the catheter from the pocket incision up to the stab wound up to the puncture site in the neck. Once this was done, the tip was beveled. The peel away sheath was inserted. The catheter was inserted through the peel away sheath. The tip was in the central position in the distal superior vena cava. Once that was in position the catheter was then transected appropriate length and the port was placed on the end and held in place with the port clamp. It was then placed in the pocket and sewn to the anterior chest wall with Prolene sutures in the upper 2 suture holes. Position was confirmed. The catheter had a nice curve with no kinking. The tip was in the distal superior vena cava. Adequate hemostasis was noted and the wound was then closed in the usual fashion using running 3-0 Vicryl suture for the subcutaneous layer and running 4-0 subcuticular suture for the skin edges of Vicryl. Dermabond was used for a dressing. Next, the abdomen was prepped and draped in a sterile manner. Local anesthetic was administered at the end of the case to help with analgesia. Skin incision was then deepened to where the fascia was identified. The midline was found. The incision was paramedian on the left. A small steven was made in the fascia. The peritoneum and then identified. This was opened, a large amount of ascites was expressed, approximately 500 mL. Catheter was then inserted inferiorly into the pelvis. It actually had aspirated easily. The peritoneum was closed around the catheter using a Vicryl suture in a pursestring fashion. Next, the fascia was then approximated with the cuff between the peritoneum and midline fascia. This closure was done what 2-0 Prolene suture. The catheter aspirated easily of fluid. There was no appreciable leaking noted around the catheter. Using a trocar, the catheter was brought out through a separate stab wound on the left side laterally. The attachments were placed at the end. Catheter was irrigated and flushed with hep saline. The wound was then closed after adequate hemostasis was seen. This was done with a running 3-0 Vicryl suture for the subcutaneous layer and running 4-0 subcuticular suture for the skin edges with Dermabond for a dressing. A 4 x 4 dressing was placed over the catheter end. The patient left the operating room in good condition and tolerated the procedure well. I attest to the content of the Intraoperative Record and any orders documented therein. Any exceptio ns are noted below.
[2016-11-10 12:30] VITALS: BP 140/64; PULSE 69; TEMP 36.5; O2SAT 93
[2016-11-10 13:00] VITALS: BP 130/71; PULSE 69; O2SAT 92
--- NOTE | 2016-11-10 13:01 | Anesthesiology Progress Note ---
Anesthesia Post Op Note Date & Time November 10, 2016 at 13:01 Vital Signs Pain Intensity: 0 Vital Signs Past 12 Hours Date Time Temp Pulse Resp B/P Pulse Ox O2 Delivery O2 Flow Rate FiO2 11/10/16 12:15 36 66 16 140/83 94 Room Air 11/10/16 12:05 36 62 16 144/84 94 Room Air 11/10/16 11:55 36 65 16 146/81 98 Room Air 11/10/16 11:45 60 16 158/84 98 Mask 10 11/10/16 11:35 59 16 144/94 98 Mask 10 11/10/16 11:27 36.3 56 16 172/85 98 Mask 10 11/10/16 08:55 37.1 86 20 131/77 95 Room Air Notes Mental Status: alert / awake / arousable, participated in evaluation Pt Amnestic to Procedure: Yes Nausea / Vomiting: adequately controlled Pain: adequately controlled Airway Patency, RR, SpO2: stable & adequate BP & HR: stable & adequate Hydration State: stable & adequate Anesthetic Complications: no major complications apparent
[2016-11-10 13:30] VITALS: BP 124/71; PULSE 75; TEMP 36.6; O2SAT 92
--- NOTE | 2016-11-15 11:02 | Progress Note ---
Progress Note Date of Service November 15, 2016. Progress Note I assisted Dr Galan with Tayla Block's infusaport insertion into right internal jugular, USN localization of right internal jugular vein, Fluoro for postioning, Insertion of peritoneal dialysis catheter, on 11/10/16, d/t lack of resident availability.
== END | disposition home or self-care (01) ==
LOC: C.ACU 08:09
PROVIDERS: ATTEND Surgery Vascular Surgery
DX: C16.9 Malignant neoplasm of stomach, unspecified (principal); M15.9 Polyosteoarthritis, unspecified; E66.9 Obesity, unspecified; I10 Essential (primary) hypertension; K44.9 Diaphragmatic hernia without obstruction or gangrene

== ENCOUNTER 2016-11-25 15:54 | Inpatient (IN) | payer OTHER ==
[~2016-11-25] VITALS: Ht 162.6 cm; Wt 89.3 kg
[~2016-11-25 15:54] MED LIST changes: -ALTEPLASE, RECOMBINANT 1 MG/ML 2 ML VIAL IV ONE; -ATROPINE SULFATE 0.1 MG/ML 5ML SYR IV PRN; -BUPIVACAINE 0.5 % 5 MG/1 ML MPF 30ML VIAL ONE; -BUPIVACAINE/EPINEPHRINE 0.5% MPF 1:200,000 30 ML VIAL ONE; -CEFAZOLIN 2000 MG/60 ML D5W 60 ML IV SCH; -CEPH500C PO; -CISATRACURIUM BESYLATE IV SOLN 2 MG/ML 10 ML VIAL ONE; -CLOT10TR2 MT; -DEXA1TAB16 PO; -DEXAMETHASONE SOD INJ 4 MG/ML VIAL ONE; -DOCU-94 PO; -EpHEDrine SULFATE INJ 50 MG/ML AMP IV PRN; -FENTANYL CITRATE INJ 50 MCG/1 ML 2 ML VIAL IV PRN; -FENTANYL CITRATE INJ 50 MCG/1 ML 2 ML VIAL ONE; -GLYCOPYRROLATE INJ 0.2 MG/ML VIAL ONE; -HEPARIN SOD (PORCINE) 1000 UNIT/ML 10 ML VIAL ONE; -HEPARIN SOD (PORCINE) 5000 UNIT/ML 1 ML VIAL ONE; -HYDROmorphone INJ 0.5 MG/0.5 ML SYR IV PRN; -LABETALOL HCL IV 5 MG/ML 20ML IV PRN; -LACT10SO17 PO; -LACTATED RINGER'S 1000ML IV SCH; -LIDOCAINE HCL 1% 20 ML VIAL ONE; -LIDOCAINE HCL 2% 2 ML VIAL (20MG/ML) ONE; -MEPERIDINE HCL 25 MG/ML CARP IV PRN; -MIDAZOLAM HCL 1 MG/ML 2ML VIAL ONE; -NEOSTIGMINE METHYLSULFATE 5 MG/5 ML SYR ONE; -NSS 1000ML IV SCH; -ONDANSETRON INJ 2 MG/ML 2 ML VIAL IV PRN; -ONDANSETRON INJ 2 MG/ML 2 ML VIAL ONE; -POLY335025 PO; -POTA10CA28 PO; -PROC1TAB5 PO; -PROPOFOL IV EMULSION 10 MG/ML 20 ML VIAL IV ONE; -SODIUM BICARBONATE 8.4% INJ 50 MEQ/50 ML VIAL ONE; -SPIR25TA PO
[2016-11-25] MEDS ORDERED: SODIUM CHLORIDE 0.9% 1000ML 1,000 ML IV STA (16:16)
--- NOTE | 2016-11-25 16:23 | EMERGENCY ROOM VISIT NOTE ---
History Report prepared by Chuck: Martha Flores Under the Supervision of: Dr. Brenden Pascual M.D. First contact with patient: 16:06 Chief Complaint: ILLNESS Stated Complaint: WEAKNESS, DEHYDRATION, INFECTION History of Present Illness The patient is a 76 year old female who presents to the Emergency Room with complaints of worsening illness that started about 1 week ago. The patient came to the ED via ambulance from home. The patient does not speak Mongolian, so her daughter is at bedside translating and providing the history. The patient has been experiencing vomiting for the past week. She has not experienced any vomiting today, but she experienced 2 episodes of vomiting yesterday. The patient has not been drinking or urinating much over the last couple months. The patient has a history of stomach cancer. She has an intraabdominal catheter in her left abdomen secondary to ascites. They drain the catheter by opening the end of it. The patient's daughter drained 500 ml of yellow fluid from the patient's catheter today and she states that it was not cloudy. The patients daughter states that she called in home nursing today to evaluate the erythema around the patient's abdominal drain. The nurse measured the patient's vital signs. She measured the patient's temperature under her tongue and recorded the patient's temperature at 105 F, however nursing staff states that she is afebrile here. EMS also did not report any fevers. Home nursing did not give the patient anything for her fever. When the nurse was measuring the patient's vital signs at home she was sweating and also experiencing hypotension with a blood pressure around 100/70. The patient's daughter also states that the patient has been experiencing intermittent palpitations and complains of her heart beating rapidly. She also states that the patient is generally weak. The patient is not experiencing a cough and she is moving her bowels normally. The patient recently had a port placed and it has been accessed without any complications. The patient's daughter adds that the patient has not verbalized any pain. Source of History: patient, family (daughter), EMS, nursing staff Onset: 1 week ago Position: abdomen Quality: other (illness) Timing: worsening Associated Symptoms: + diaphoresis, + fevers, + nausea, + urinary symptoms ( decreased frequency), + vomiting, + weakness, No cough Note: hypotension, intermittent palpitations Review of Systems As above. All other systems reviewed were negative unless otherwise stated in history. At least 10 were reviewed Past Medical & Surgical Medical Problems: (1) Ascites (2) Dehydration (3) Uterine cancer (4) Weakness Surgical Problems: (1) H/O cataract removal with insertion of prosthetic lens Old medical records were reviewed. Nurse's notes were reviewed and I agree with. Family History Cancer Hypertension Social History Smoking Status: Never Smoker Drug Use: none Marital Status: Occupation Status: retired Current/Historical Medications Scheduled Clotrimazole (Mycelex), 10 MG MT QID Cyanocobalamin (B12), 1,000 MCG PO DAILY Dexamethasone (Dexamethasone), 2 TABS PO BID Ergocalciferol (Vitamin D 95484 Unit), 50,000 UNIT PO WK Lactulose (Chronulac), 3 ML PO BID Potassium Chloride (Micro-K Ext Rel), 10 MEQ PO DAILY Spironolactone (Aldactone), 25 MG PO DAILY Scheduled PRN Oxycodone/Acetaminophen 5MG/325MG (Percocet 5MG/325MG), 1 TABLET PO Q4H PRN for Pain Prochlorperazine Maleate (Compazine), 10 MG PO Q6H PRN for Nausea Allergies Coded Allergies: No Known Allergies (Unverified , 11/10/16) Physical Exam Vital Signs Date Time Temp Pulse Resp B/P Pulse Ox O2 Delivery O2 Flow Rate FiO2 11/25/16 19:01 93/51 11/25/16 19:00 82 22 94 11/25/16 18:31 94/58 11/25/16 18:30 78 22 11/25/16 18:01 92/59 11/25/16 18:00 77 33 11/25/16 17:59 76 16 91/60 11/25/16 16:04 87 11/25/16 16:00 36.6 88 16 127/74 96 Room Air Physical Exam General: Well developed well nourished chronically-ill appearing but not acutely ill appearing older female in no acute distress, breathing comfortably on room air. Normal speech HEENT: Normal cephalic atraumatic. Pupils are equal round and reactive to light. Extraocular movements are intact. Oropharynx is pink with moist mucous membranes. No swelling of the mouth lips or tongue. Neck: Supple with a midline trachea. No meningeal signs or stiffness, no JVD or bruits. No Stridor. Chest: Healing incision from port placement with some bruising but no evidence of infection. Clear to auscultation bilaterally. No wheezes or rhonchi. No increased work of breathing. Heart: regular rate and rhythm. Abdomen: Drain in left abdomen for ascites with minimal pink discoloration around the site, soft nontender, nondistended without rebound guarding or rigidity. Extremities: No cyanosis clubbing or edema. No calf tenderness or assymetry Spine/Back. Non tender to palpation. No CVA tenderness Skin: Good turgor without rashes. Neurologic exam: Cranial nerves two through 12 are intact. Motor and sensation are intact and symmetrical throughout. Medical Decision & Procedures ER Provider Diagnostic Interpretation: X-ray results as stated below per interpretation by me and the radiologist: CHEST ONE VIEW PORTABLE FINDINGS: Central catheter in superior vena cava. Poorly defined parenchymal infiltrate left base. Lungs otherwise appear clear. IMPRESSION: Mild infiltrate left base. Central catheter in the superior Vena cava. Electronically signed by: Rocael Mc M.D. 11/25/2016 4:47 PM Dictated Date/Time: 11/25/2016 4:46 PM Laboratory Results 11/25/16 16:20 Red Blood Count 4.62, Mean Corpuscular Volume 82.0, Mean Corpuscular Hemoglobin 28.4, Mean Corpuscular Hemoglobin Concent 34.6, Mean Platelet Volume 10.0 11/25/16 16:20 Test 11/25/16 00:00 11/25/16 16:20 11/25/16 16:34 11/25/16 17:20 Peritoneal Fluid Color YELLOW Peritoneal Fluid Appearance CLEAR Peritoneal Fluid WBC 789 /uL (0-300) Peritoneal Fluid RBC < 3000 /uL Peritoneal Fld Mononuclear WBCs (%) 87.5 % Peritoneal Fld Polynuclear WBCs (%) 12.5 % White Blood Count 5.49 K/uL (4.8-10.8) Red Blood Count 4.62 M/uL (4.2-5.4) Hemoglobin 13.1 g/dL (12.0-16.0) Hematocrit 37.9 % (37-47) Mean Corpuscular Volume 82.0 fL (80-100) Mean Corpuscular Hemoglobin 28.4 pg (25-34) Mean Corpuscular Hemoglobin Concent 34.6 g/dl (32-36) Platelet Count 142 K/uL (130-400) Mean Platelet Volume 10.0 fL (7.4-10.4) RDW Standard Deviation 38.2 fL (36.4-46.3) RDW Coefficient of Variation 12.8 % (11.5-14.5) Neutrophils % (Manual) 65.3 % Lymphocytes % (Manual) 13.9 % Monocytes % (Manual) 13.0 % Basophils % (Manual) 1.7 % Metamyelocytes % 3.5 % Myelocytes % 2.6 % Neutrophils # (Manual) 3.58 K/uL (1.4-6.5) Total Absolute Neutrophils 3.58 K/uL (1.4-6.5) Lymphocytes # (Manual) 0.76 K/uL (1.2-3.4) Total Absolute Lymphocytes 0.76 K/uL (1.2-3.4) Monocytes # (Manual) 0.71 K/uL (0.11-0.59) Basophils # (Manual) 0.09 K/uL (0-0.2) Metamyelocytes # 0.19 K/uL (0-0) Myelocytes # 0.14 K/uL (0-0) Toxic Granulation 1+ Polychromasia 1+ Prothrombin Time 10.8 SECONDS (9.0-12.0) Prothromb Time International Ratio 1.0 (0.9-1.1) Activated Partial Thromboplast Time 25.3 SECONDS (21.0-31.0) Partial Thromboplastin Ratio 1.0 Anion Gap 8.0 mmol/L (3-11) Est Creatinine Clear Calc Drug Dose 76.3 ml/min Estimated GFR () 99.4 Estimated GFR (Non- 85.8 BUN/Creatinine Ratio 11.3 (10-20) Calcium Level 6.9 mg/dl (8.5-10.1) Magnesium Level 1.9 mg/dl (1.8-2.4) Total Bilirubin 0.3 mg/dl (0.2-1) Direct Bilirubin 0.1 mg/dl (0-0.2) Aspartate Amino Transf (AST/SGOT) 14 U/L (15-37) Alanine Aminotransferase (ALT/SGPT) 14 U/L (12-78) Alkaline Phosphatase 72 U/L (45-117) Total Creatine Kinase 15 U/L (26-192) Creatine Kinase MB 1.8 ng/ml (0.5-3.6) Creatine Kinase MB Ratio 12.0 (0-3.0) C-Reactive Protein 2.27 mg/dl (0-0.29) Total Protein 4.9 gm/dl (6.4-8.2) Albumin 2.0 gm/dl (3.4-5.0) Lipase 106 U/L (73-393) 25-Hydroxy Vitamin D Total 14.3 ng/ml (30-100) Bedside Lactic Acid Venous 1.11 mmol/L (0.90-1.70) Urine Color DK YELLOW Urine Appearance CLEAR (CLEAR) Urine pH 6.0 (4.5-7.5) Urine Specific [place] 1.027 (1.000-1.030) Urine Protein 1+ (NEG) Urine Glucose (UA) NEG (NEG) Urine Ketones TRACE (NEG) Urine Occult Blood NEG (NEG) Urine Nitrite NEG (NEG) Urine Bilirubin NEG (NEG) Urine Urobilinogen NEG (NEG) Urine Leukocyte Esterase NEG (NEG) Urine WBC (Auto) 1-5 /hpf (0-5) Urine RBC (Auto) 5-10 /hpf (0-4) Urine Hyaline Casts (Auto) 10-30 /lpf (0-5) Urine Epithelial Cells (Auto) >30 /lpf (0-5) Urine Bacteria (Auto) NEG (NEG) Urine Renal Epithelial Cells /lpf (0-5) Urine Pathogenic Casts 0-3 GRANULAR CASTS /lpf (0) Laboratory studies as stated above per my review. Medications Administered Medications (Trade) Dose Ordered Sig/Graciela Route Start Time Stop Time Status Last Admin Dose Admin Sodium Chloride (Nss 1000ml) 1,000 ml @ 999 mls/hr Q1H1M STAT IV 11/25/16 16:16 11/25/16 17:16 DC 11/25/16 16:52 999 MLS/HR Piperacillin Sod/ Tazobactam Sod (Zosyn Iv) 4.5 gm NOW STAT IV 11/25/16 17:37 11/25/16 17:39 DC 11/25/16 17:58 4.5 GM ECG Indication: weakness Rate (beats per minute): 83 Rhythm: normal sinus Findings: no acute ischemic change, no ectopy Comparison ECG Date: 10/30/2016 ED Course 1608: Past medical records reviewed. The patient was evaluated in room B5, and a complete history and physical examination were performed. 1616: Ordered Sodium Chloride 1000 ml @ 999 mls/hr IV 1708: I reassessed the patient. She is resting comfortably. 1736: Upon reevaluation, the patient is still tired and weak. I discussed the results and treatment plan with the patient and her daughter. They verbalized agreement of the treatment plan. The patient will be evaluated for further management. 1737: Ordered Zosyn 4.5 gm IV 1746: Discussed patient's case with Dr. Brennon Griggs. The patient will be evaluated for further treatment and disposition. 181: Dr. Willett evaluated the patient and found out that she is a [facility] patient. 182: Discussed patient's case with Dr. Isaac WESTBROOK. The patient will be evaluated for further treatment and disposition. Medical Decision Differentials include, but are not limited to; infection, sepsis, dehydration, SBP, UTI, arrhythmia, acute coronary syndrome. Medication reconciliation: I attest that have personally reviewed the patient's medication list on the computer This patient comes in as described above .she has a complicated medical history. She has an intraperitoneal drain for gastric cancer and recurrent ascites. She had a temperature at home and was feeling weak .she is afebrile here. IV access was established prior in the ambulance. Blood work was obtained including blood cultures. She was hydrated with IV normal saline. Chest x-ray urinalysis and blood cultures were obtained as well as urine culture and EKG. She was reassessed frequently. Chest x-ray does suggest a possible infiltrate in the left base. Additionally her fluid from her ascites did have greater than 700 white cells it is possible she could have spontaneous bacterial peritonitis. Histo give a white count or lactic acid. She has nothing to suggest acute coronary syndrome or arrhythmia. Cultures of the blood , urine, and peritoneal fluid are pending. She was given Zosyn 4.5 g IV. The hospitalist was consulted as I do think she needs to be observed and have further inpatient treatment and evaluation. Consults Time Called: 173 Consulting Physician: Dr. Willett Returned Call: 174 Discussed patient's case with Dr. Brennon Griggs. The patient will be evaluated for further treatment and disposition. Additional Consults: Time Called: 1818 Consulted Physician: Dr. Isaac WESTBROOK Returned Call: [phone] Additional Comments: Discussed patient's case with Dr. Isaac WESTBROOK. The patient will be evaluated for further treatment and disposition. Impression Primary Impression: Sepsis Additional Impressions: SBP (spontaneous bacterial peritonitis) Pneumonia Weakness Scribe Attestation The scribe's documentation has been prepared under my direction and personally reviewed by me in its entirety. I confirm that the note above accurately reflects all work, treatment, procedures, and medical decision making performed by me. Departure Information Dispostion Being Evaluated By Hospitalist Referrals Earnest Hussein MD (PCP) Patient Instructions My [facility] Problem Qualifiers Primary Impression: Sepsis Sepsis type: sepsis due to unspecified organism Qualified Codes: A41.9 - Sepsis, unspecified organism Additional Impressions: Pneumonia Pneumonia type: due to unspecified organism Laterality: left Lung location : lower lobe of lung Qualified Codes: J18.1 - Lobar pneumonia, unspecified organism
[2016-11-25] MEDS ORDERED: DEXA1TAB16 PO (16:32)
[2016-11-25] MEDS ORDERED: LACT10SO17 PO (16:32)
[2016-11-25] MEDS ORDERED: OXYC-57 PO (16:32)
[2016-11-25] MEDS ORDERED: CLOT10TR2 MT (16:32)
[2016-11-25] MEDS ORDERED: SPIR25TA PO (16:32)
[2016-11-25] MEDS ORDERED: POTA10CA28 PO (16:32)
[2016-11-25] MEDS ORDERED: PROC1TAB5 PO (16:32)
--- NOTE | 2016-11-25 16:49 | DIAGNOSTIC IMAGING REPORT ---
CHEST ONE VIEW PORTABLE CLINICAL HISTORY: CHEST PAIN dyspnea COMPARISON STUDY: 10/06/2016 FINDINGS: Central catheter in superior vena cava. Poorly defined parenchymal infiltrate left base. Lungs otherwise appear clear. IMPRESSION: Mild infiltrate left base. Central catheter in the superior Vena cava. Electronically signed by: Rocael Mc M.D. 11/25/2016 4:47 PM Dictated Date/Time: 11/25/2016 4:46 PM
[2016-11-25 16:57] LABS: HEMATOCRIT 37.9 % (37-47); MEAN CORPUSCULAR HEMOGLOBIN 28.4 pg (25-34); MEAN CORPUSCULAR HGB CONC 34.6 g/dl (32-36); PLATELET COUNT 142 K/uL (130-400); RED BLOOD COUNT 4.62 M/uL (4.2-5.4); WHITE BLOOD COUNT 5.49 K/uL (4.8-10.8)
[2016-11-25 17:06] LABS: PROTHROMBIN TIME (PATIENT) 10.8 SECONDS (9.0-12.0)
[2016-11-25 17:15] LABS: BUN/CREATININE RATIO 11.3 (10-20); CALCIUM 6.9 mg/dl (8.5-10.1); CREATININE 0.69 mg/dl (0.60-1.20); POTASSIUM 2.9 mmol/L (3.5-5.1)
[2016-11-25 17:17] LABS: PERIT FL WBC 789 /uL (0-300); PERITONEAL FLUID RBC < 3000 /uL
[2016-11-25 17:36] LABS: BASO ABS # 0.09 K/uL (0-0.2); BASOPHIL % 1.7 %; COMPLETE YES; LYMPH ABS # 0.76 K/uL (1.2-3.4); LYMPHOCYTE % 13.9 %; META ABS # 0.19 K/uL (0-0); METAMYELOCYTE % 3.5 %; MYELOCYTE % 2.6 %; NEUTROPHILS % 65.3 %; POLYCHROMASIA 1+; TOXIC GRANULATION 1+
[2016-11-25] MEDS ORDERED: PIPERACILLIN/TAZOBACTAM 4.5 GM/100ML D5W IV STA (17:37)
[2016-11-25 17:39] LABS: URINE APPEARANCE CLEAR (CLEAR); URINE BILIRUBIN NEG (NEG); URINE COLOR DK YELLOW; URINE EPITHELIAL CELL AUTO >30 /lpf (0-5); URINE NITRITE NEG (NEG); URINE SPECIFIC GRAVITY 1.027 (1.000-1.030); UROBILINOGEN NEG (NEG)
[2016-11-25 17:45] LABS: MANUAL MICROSCOPIC REQUIRED? NO; REVIEW REQ? YES
[2016-11-25 17:56] LABS: URINE PATH CASTS 0-3 GRANULAR CASTS /lpf (0)
[2016-11-25] MEDS ORDERED: LACTATED RINGER'S 1000ML 1,000 ML IV SCH (18:15)
[2016-11-25] MEDS ORDERED: VANCOMYCIN INJ 1,000 MG in SODIUM CHLORIDE 0.9% 250ML 250 ML IV STA (19:38)
[2016-11-25] MEDS ORDERED: PROCHLORPERAZINE MALEATE 10 MG TAB PO PRN (19:45)
[2016-11-25] MEDS ORDERED: OXYCODONE/ACETAMINOPHEN 5-325 TAB PO PRN (19:45)
[2016-11-25] MEDS ORDERED: IV FLUIDS COMPLETED PRN (19:45)
[2016-11-25 20:06] VITALS: Ht 162.6 cm; Wt 89.3 kg
[2016-11-25] MEDS: LACTULOSE SYRUP 30 GM/45 ML UDP PO SCH (20:23)
[2016-11-25] MEDS ORDERED: CALCIUM 600MG + VIT D 400 IU TAB PO SCH (20:23)
[2016-11-25] MEDS ORDERED: DEXAMETHASONE 4 MG TAB PO SCH (20:23)
--- NOTE | 2016-11-25 20:25 | History and Physical ---
History & Physical Date & Time of Service: November 25, 2016 at 20:17 Chief Complaint: Weakness, Dehydration, Infection Primary Care Physician: Earnest Hussein MD Past Medical/Surgical History Medical Problems: (1) Ascites Status: Chronic (2) Uterine cancer Status: Chronic Surgical Problems: (1) H/O cataract removal with insertion of prosthetic lens Status: Resolved Family History Cancer Hypertension Social History Smoking Status: Never Smoker Drug Use: none Marital Status: Housing status: lives with family Occupational Status: retired Allergies Coded Allergies: No Known Allergies (Unverified , 11/10/16) Home Medications Scheduled Clotrimazole (Mycelex), 10 MG MT QID Cyanocobalamin (B12), 1,000 MCG PO DAILY Dexamethasone (Dexamethasone), 2 TABS PO BID Ergocalciferol (Vitamin D 42793 Unit), 50,000 UNIT PO WK Lactulose (Chronulac), 3 ML PO BID Potassium Chloride (Micro-K Ext Rel), 10 MEQ PO DAILY Spironolactone (Aldactone), 25 MG PO DAILY Scheduled PRN Oxycodone/Acetaminophen 5MG/325MG (Percocet 5MG/325MG), 1 TABLET PO Q4H PRN for Pain Prochlorperazine Maleate (Compazine), 10 MG PO Q6H PRN for Nausea Physical Exam Vital Signs Date Time Temp Pulse Resp B/P Pulse Ox O2 Delivery O2 Flow Rate FiO2 11/25/16 20:02 36.6 78 14 101/44 99 11/25/16 19:50 78 14 101/44 99 11/25/16 19:01 93/51 11/25/16 19:00 82 22 94 11/25/16 18:31 94/58 11/25/16 18:30 78 22 11/25/16 18:01 92/59 11/25/16 18:00 77 33 11/25/16 17:59 76 16 91/60 11/25/16 16:04 87 11/25/16 16:00 36.6 88 16 127/74 96 Room Air Diagnostics Laboratory Results Results Past 24 Hours Test 11/25/16 00:00 11/25/16 16:20 11/25/16 16:34 11/25/16 17:20 Range/Units Peritoneal Fluid Color YELLOW Peritoneal Fluid Appearance CLEAR Peritoneal Fluid WBC 789 0-300 /uL Peritoneal Fluid RBC < 3000 /uL Peritoneal Fld Mononuclear WBCs (%) 87.5 % Peritoneal Fld Polynuclear WBCs (%) 12.5 % White Blood Count 5.49 4.8-10.8 K/uL Red Blood Count 4.62 4.2-5.4 M/uL Hemoglobin 13.1 12.0-16.0 g/dL Hematocrit 37.9 37-47 % Mean Corpuscular Volume 82.0 80-100 fL Mean Corpuscular Hemoglobin 28.4 25-34 pg Mean Corpuscular Hemoglobin Concent 34.6 32-36 g/dl Platelet Count 142 130-400 K/uL Mean Platelet Volume 10.0 7.4-10.4 fL RDW Standard Deviation 38.2 36.4-46.3 fL RDW Coefficient of Variation 12.8 11.5-14.5 % Neutrophils % (Manual) 65.3 % Lymphocytes % (Manual) 13.9 % Monocytes % (Manual) 13.0 % Basophils % (Manual) 1.7 % Metamyelocytes % 3.5 % Myelocytes % 2.6 % Neutrophils # (Manual) 3.58 1.4-6.5 K/uL Total Absolute Neutrophils 3.58 1.4-6.5 K/uL Lymphocytes # (Manual) 0.76 1.2-3.4 K/uL Total Absolute Lymphocytes 0.76 1.2-3.4 K/uL Monocytes # (Manual) 0.71 0.11-0.59 K/uL Basophils # (Manual) 0.09 0-0.2 K/uL Metamyelocytes # 0.19 0-0 K/uL Myelocytes # 0.14 0-0 K/uL Toxic Granulation 1+ Polychromasia 1+ Prothrombin Time 10.8 9.0-12.0 SECONDS Prothromb Time International Ratio 1.0 0.9-1.1 Activated Partial Thromboplast Time 25.3 21.0-31.0 SECONDS Partial Thromboplastin Ratio 1.0 Sodium Level 137 136-145 mmol/L Potassium Level 2.9 3.5-5.1 mmol/L Chloride Level 103 98-107 mmol/L Carbon Dioxide Level 26 21-32 mmol/L Anion Gap 8.0 3-11 mmol/L Blood Urea Nitrogen 8 7-18 mg/dl Creatinine 0.69 0.60-1.20 mg/dl Est Creatinine Clear Calc Drug Dose 76.3 ml/min Estimated GFR () 99.4 Estimated GFR (Non- 85.8 BUN/Creatinine Ratio 11.3 10-20 Random Glucose 128 70-99 mg/dl Calcium Level 6.9 8.5-10.1 mg/dl Total Bilirubin 0.3 0.2-1 mg/dl Direct Bilirubin 0.1 0-0.2 mg/dl Aspartate Amino Transf (AST/SGOT) 14 15-37 U/L Alanine Aminotransferase (ALT/SGPT) 14 12-78 U/L Alkaline Phosphatase 72 45-117 U/L Total Creatine Kinase 15 26-192 U/L Creatine Kinase MB 1.8 0.5-3.6 ng/ml Creatine Kinase MB Ratio 12.0 0-3.0 Total Protein 4.9 6.4-8.2 gm/dl Albumin 2.0 3.4-5.0 gm/dl Lipase 106 73-393 U/L Bedside Lactic Acid Venous 1.11 0.90-1.70 mmol/L Urine Color DK YELLOW Urine Appearance CLEAR CLEAR Urine pH 6.0 4.5-7.5 Urine Specific [place] 1.027 1.000-1.030 Urine Protein 1+ NEG Urine Glucose (UA) NEG NEG Urine Ketones TRACE NEG Urine Occult Blood NEG NEG Urine Nitrite NEG NEG Urine Bilirubin NEG NEG Urine Urobilinogen NEG NEG Urine Leukocyte Esterase NEG NEG Urine WBC (Auto) 1-5 0-5 /hpf Urine RBC (Auto) 5-10 0-4 /hpf Urine Hyaline Casts (Auto) 10-30 0-5 /lpf Urine Epithelial Cells (Auto) >30 0-5 /lpf Urine Bacteria (Auto) NEG NEG Urine Renal Epithelial Cells 0-5 /lpf Urine Pathogenic Casts 0-3 GRANULAR CASTS 0 /lpf Microbiology Results 11/25/16 Blood Culture, Received Pending 11/25/16 Blood Culture, Received Pending 11/25/16 Urine Culture, Received Pending 11/25/16 Gram Stain, Received Pending 11/25/16 Bacterial Culture, Received Pending Impression Assessment and Plan obs #[id number] discussed code status - dtr appearing overwhelmed, notes this was discussed at heme/onc and they're working through it, currently would then be full code Resuscitation Status FULL RESUSCITATION (see above) VTE Prophylaxis VTE Risk Assessment Done? Y/N: Yes Risk Level: Moderate Given or contraindicated: Enoxaparin (Lovenox)SQ
[2016-11-25] MEDS ORDERED: VANCOMYCIN CONSULT ACTIVE PRN (20:30)
[2016-11-25] MEDS ORDERED: POTASSIUM CHLORIDE 10 MEQ TABCR PO ONE ×2 (20:30→22:00)
--- NOTE | 2016-11-25 20:47 | Pharmacy Progress Note ---
Pharmacy Abx Initial Consult Date of Service November 25, 2016. Pharmacy Dosing Scope Date of Consult: 11/25/16 Consultation requested by: Dr. Gray Pharmacy is consulted to initiate Vanco IV dosing therapy, order appropriate labs and adjust drug dose/frequency. Subjective The patient is a 76 year old female admitted on November 25, 2016 at 19:10. Objective Height (Feet): 5 Height (Inches): 4.00 Weight (Kilograms): 86.800 Vital Signs (Past 12Hrs) Vital Signs Past 12 Hours Date Time Temp Pulse Resp B/P Pulse Ox O2 Delivery O2 Flow Rate FiO2 11/25/16 20:06 Room Air 11/25/16 20:02 36.6 78 14 101/44 99 11/25/16 19:50 78 14 101/44 99 11/25/16 19:01 93/51 11/25/16 19:00 82 22 94 11/25/16 18:31 94/58 11/25/16 18:30 78 22 11/25/16 18:01 92/59 11/25/16 18:00 77 33 11/25/16 17:59 76 16 91/60 11/25/16 16:04 87 11/25/16 16:00 36.6 88 16 127/74 96 Room Air Lab Results (24Hrs) Test 11/25/16 00:00 11/25/16 16:20 11/25/16 16:34 11/25/16 17:20 Peritoneal Fluid Color YELLOW Peritoneal Fluid Appearance CLEAR Peritoneal Fluid WBC 789 /uL (0-300) Peritoneal Fluid RBC < 3000 /uL Peritoneal Fld Mononuclear WBCs (%) 87.5 % Peritoneal Fld Polynuclear WBCs (%) 12.5 % White Blood Count 5.49 K/uL (4.8-10.8) Red Blood Count 4.62 M/uL (4.2-5.4) Hemoglobin 13.1 g/dL (12.0-16.0) Hematocrit 37.9 % (37-47) Mean Corpuscular Volume 82.0 fL (80-100) Mean Corpuscular Hemoglobin 28.4 pg (25-34) Mean Corpuscular Hemoglobin Concent 34.6 g/dl (32-36) Platelet Count 142 K/uL (130-400) Mean Platelet Volume 10.0 fL (7.4-10.4) RDW Standard Deviation 38.2 fL (36.4-46.3) RDW Coefficient of Variation 12.8 % (11.5-14.5) Neutrophils % (Manual) 65.3 % Lymphocytes % (Manual) 13.9 % Monocytes % (Manual) 13.0 % Basophils % (Manual) 1.7 % Metamyelocytes % 3.5 % Myelocytes % 2.6 % Neutrophils # (Manual) 3.58 K/uL (1.4-6.5) Total Absolute Neutrophils 3.58 K/uL (1.4-6.5) Lymphocytes # (Manual) 0.76 K/uL (1.2-3.4) Total Absolute Lymphocytes 0.76 K/uL (1.2-3.4) Monocytes # (Manual) 0.71 K/uL (0.11-0.59) Basophils # (Manual) 0.09 K/uL (0-0.2) Metamyelocytes # 0.19 K/uL (0-0) Myelocytes # 0.14 K/uL (0-0) Toxic Granulation 1+ Polychromasia 1+ Prothrombin Time 10.8 SECONDS (9.0-12.0) Prothromb Time International Ratio 1.0 (0.9-1.1) Activated Partial Thromboplast Time 25.3 SECONDS (21.0-31.0) Partial Thromboplastin Ratio 1.0 Sodium Level 137 mmol/L (136-145) Potassium Level 2.9 mmol/L (3.5-5.1) Chloride Level 103 mmol/L (98-107) Carbon Dioxide Level 26 mmol/L (21-32) Anion Gap 8.0 mmol/L (3-11) Blood Urea Nitrogen 8 mg/dl (7-18) Creatinine 0.69 mg/dl (0.60-1.20) Est Creatinine Clear Calc Drug Dose 76.3 ml/min Estimated GFR () 99.4 Estimated GFR (Non- 85.8 BUN/Creatinine Ratio 11.3 (10-20) Random Glucose 128 mg/dl (70-99) Calcium Level 6.9 mg/dl (8.5-10.1) Total Bilirubin 0.3 mg/dl (0.2-1) Direct Bilirubin 0.1 mg/dl (0-0.2) Aspartate Amino Transf (AST/SGOT) 14 U/L (15-37) Alanine Aminotransferase (ALT/SGPT) 14 U/L (12-78) Alkaline Phosphatase 72 U/L (45-117) Total Creatine Kinase 15 U/L (26-192) Creatine Kinase MB 1.8 ng/ml (0.5-3.6) Creatine Kinase MB Ratio 12.0 (0-3.0) Total Protein 4.9 gm/dl (6.4-8.2) Albumin 2.0 gm/dl (3.4-5.0) Lipase 106 U/L (73-393) Bedside Lactic Acid Venous 1.11 mmol/L (0.90-1.70) Urine Color DK YELLOW Urine Appearance CLEAR (CLEAR) Urine pH 6.0 (4.5-7.5) Urine Specific [place] 1.027 (1.000-1.030) Urine Protein 1+ (NEG) Urine Glucose (UA) NEG (NEG) Urine Ketones TRACE (NEG) Urine Occult Blood NEG (NEG) Urine Nitrite NEG (NEG) Urine Bilirubin NEG (NEG) Urine Urobilinogen NEG (NEG) Urine Leukocyte Esterase NEG (NEG) Urine WBC (Auto) 1-5 /hpf (0-5) Urine RBC (Auto) 5-10 /hpf (0-4) Urine Hyaline Casts (Auto) 10-30 /lpf (0-5) Urine Epithelial Cells (Auto) >30 /lpf (0-5) Urine Bacteria (Auto) NEG (NEG) Urine Renal Epithelial Cells /lpf (0-5) Urine Pathogenic Casts 0-3 GRANULAR CASTS /lpf (0) Test 11/25/16 20:25 Micro Results Date/Time Source Procedure Growth Status 11/25/16 16:30 Blood Blood Culture Pending Received 11/25/16 16:20 Blood Blood Culture Pending Received 11/25/16 17:20 Urine,Catheterized Urine Culture Pending Received 11/25/16 00:00 Peritoneal Fluid Gram Stain Pending Received 11/25/16 00:00 Peritoneal Fluid Bacterial Culture Pending Received Assessment & Plan Assessment 76yo F being empirically tx with Vancomycin and Rocephin. Currently has 0/4 SIRS criteria. Unsure if she has a h/o of MDRO. Pt does receive ChTx; however, WBC look to be WNL. Plan Vancomycin IV * Loading dose: 2200mg (25 mg/kg) * Maintenance dose: 1300 mg IV (15 mg/kg) every 12 hours set to start at 0400 on 11/26/16 * Goal trough level for empiric tx or until c/s's result : 15 to 20 mcg/mL * Trough level ordered for 11/27/16@ 0330 Rocephin * Not renally adjusted Pharmacy will continue to follow and will adjust dose/frequency as necessary. Thank you.
[2016-11-25] MEDS: SODIUM CHLOR 0.45% + 20MEQ KCL 1,000 ML IV SCH (20:49)
[2016-11-25] MEDS: CEFTRIAXONE SOD INJ 2,000 MG in DEXTROSE 5% 50ML 50 ML IV SCH (20:50)
[2016-11-25 21:00] VITALS: BP 136/82; PULSE 76; TEMP 36.8; O2SAT 98
[2016-11-25] MEDS ORDERED: VANCOMYCIN INJ 2,200 MG in SODIUM CHLORIDE 0.9% 500ML 500 ML IV ONE (21:00)
[2016-11-25] MEDS: BOOST VANILLA PO SCH ×2 (21:00)
[2016-11-25] MEDS: CLOTRIMAZOLE 10 MG TROCHE MT SCH (21:01)
[2016-11-25] MEDS ORDERED: NURSING VERBAL MED ORDER ONE ×2 (21:30)
[2016-11-25] MEDS: POTASSIUM CHLR 10MEQ / WTR IV SCH ×3 (21:45→23:46)
[2016-11-25] MEDS: DEXAMETHASONE INJ 4 MG in SYRINGE 0 ML IV SCH (21:45)
[2016-11-25] MEDS ORDERED: PANTOprazole INJ 40 MG in SYRINGE 0 ML IV ONE (22:00)
--- NOTE | 2016-11-25 22:54 | HISTORY & PHYSICAL EXAMINATION ---
DATE OF ADMISSION: 11/25/2016 CHIEF COMPLAINT: Fever, weakness. HISTORY OF PRESENT ILLNESS: The patient is a 76-year-old female who has been through a lot lately having had spontaneous onset of ascites that was later found to be due to gastric cancer. She is currently undergoing chemotherapy. She has got a drain into drain her ascites because it fills up so frequently and she has been living at home, going through all this with good family support. She started to look week and just generally ill, the family had concern of redness around the site of her peritoneal drain and then this morning she spiked a temperature of about 105, during the time that home nursing was there, she also was noted to have low blood pressure, although it is not clear exactly how low this was, but because of the fever and the low blood pressure, obviously nursing suggested she come to the ER for further evaluation. Here, she looks fatigued but less ill, does not seem to have any specific complaints. Her daughter generally does all the talking for her and translates for her and at the same time even with all this, she really does not do a whole lot of speaking even with the daughter. Therefore, her HPI and review of systems is quite limited but otherwise negative except for as above. PAST MEDICAL HISTORY: Includes gastric cancer, metastatic with ascites, apparently also a prior history of uterine cancer. PAST SURGICAL HISTORY: Includes drain placement for her ascites and cataract extraction. FAMILY HISTORY: None of note. SOCIAL HISTORY: She is not a smoker. She is . She lives with family. ALLERGIES: No known drug allergies. MEDICATIONS: Clotrimazole 10 mg by mouth and throat q.i.d., vitamin B12 1000 mcg daily, Decadron 2 tabs p.o. b.i.d., vitamin D 50,000 units weekly; lactulose b.i.d., I believe 30 mL; Percocet 5/325 q. 4 hours p.r.n. pain, potassium chloride 10 mEq daily, Compazine 10 mg p.o. q. 6 hours p.r.n. nausea, spironolactone 25 mg p.o. daily. PHYSICAL EXAMINATION: VITAL SIGNS: Her initial vitals here showed a temp of 36.6, pulse 88, respiratory rate 16, blood pressure 127/74, 96% on room air. GENERAL: She is awake and alert, it is hard to gauge orientation due to her daughter translating for her as well as the fact that she really does not speak much. She appears fatigued, but in no acute distress. HEENT: Normocephalic, atraumatic. Mucous membranes somewhat dry. CARDIOVASCULAR: Regular without rubs, murmurs, or gallops. LUNGS: Clear to auscultation bilaterally. No rales, rhonchi, or wheezes with good effort. ABDOMEN: Soft, moderately distended with a little bit of a fluid wave. She has a drain on the left side, there is a little bit of an appearance of erythema around the drain, there is no exudate when palpating on the fistula tract that the drain creates and it also does not really appear to be tender, certainly the rest of her abdomen is not tender either. EXTREMITIES: Show no cyanosis or clubbing. She has maybe trace bilateral lower extremity edema. No erythema. No cords. NEUROLOGIC: Shows cranial nerves II-XII to be grossly intact. Gross motor and sensory are intact as best can be assessed. MUSCULOSKELETAL: Yields no gross lesions. MENTAL STATUS: As above noted is very difficult to assess, but seems intact. LABORATORY AND DIAGNOSTICS: Her CBC shows a white count of 5.5 with 65% neutrophils, hemoglobin 13.1. Complete metabolic panel with a sodium 137, potassium 2.9, chloride 103, CO2 26, BUN 8, creatinine 0.69. Calcium 6.9, glucose 128, total bili 0.3 with a direct of 0.1, AST 14, ALT 14, alkaline phosphatase 72, CK total of 15 with an MB of 1.8, albumin 2, lipase 106. PT of 10.8, PTT of 25.3. Urinalysis is dark yellow, clear, specific gravity 1.027, trace ketones, greater than 30 epithelial cells with 10-30 hyaline casts, 5-10 red cells, 0-3 granular casts. Peritoneal fluid shows 789 white cells, less than 300 red cells, yellow and clear. Peritoneal blood and urine cultures all have been sent and are pending. Chest x-ray shows a poorly defined parenchymal infiltrate in the left base and the lungs otherwise appear clear and on review it may even just to be summation shadowing with her chest wall, heart border and diaphragm. ASSESSMENT AND PLAN: 1. Weakness. The differential for weakness seems to be fairly wide and likely is multifactorial with going through chemotherapy and the cancer itself. Her malnutrition, her hypocalcemia, dehydration and whatever the causes of her febrile illness, all likely playing a role. 2. Febrile illness, it is unclear exactly the source of her fever, certainly peritoneal infection would be of grave concern, but she does not appear septic. She does not have tender abdomen. She does have a decent amount of white cells in her peritoneal fluid and obviously therefore will be treated, but also with her port in place, although there is no surrounding erythema, no tenderness there either the question of bacteremia. Blood cultures have been drawn and are pending and of course common things being common. Urine culture has been sent. We will also check a CRP to gauge severity of inflammation and follow clinically. Given the peritonitis or bacteremia, seem to be the 2 most likely bacterial infections. For her fever, empiric treatment will be started with ceftriaxone 2 grams daily (cefotaxime was on back order and unavailable) and vancomycin 1 gram pending further growth on her blood cultures. We will continue to follow her closely. 3. Dehydration, likely from poor p.o. intake from her just overall severity of illness, IV fluids and continue to follow. 4. Moderate protein malnutrition, low albumin, likely relating to her gastric cancer as well as chemotherapy. Follow her intake and initiate protein shakes. 5. Hypocalcemia. She is already getting vitamin D 50,000 units weekly, will add additional calcium plus D t.i.d. and follow her calcium levels. We do not have a recent vitamin D on record given her hypocalcemia, we will check a D level and may need to supplement even more aggressively than that. 6. Hypokalemia, replaced. This also may be a cause of her weakness. 7. Gastric cancer. She is continuing to go through treatment for this. Follow up as an outpatient. 8. Deep venous thrombosis prophylaxis, Lovenox. VIKRAMD
[2016-11-25 23:33] VITALS: BP 134/87; PULSE 81; TEMP 36.9; O2SAT 94
[2016-11-26] VITALS (7 sets, daily range): BP systolic 111–132; BP diastolic 68–78; PULSE 61–67; TEMP 36.2–36.6; O2SAT 94–96
[2016-11-26] MEDS: POTASSIUM CHLR 10MEQ / WTR IV SCH (00:50)
[2016-11-26] MEDS: VANCOMYCIN INJ 1,300 MG in SODIUM CHLORIDE 0.9% 250ML 250 ML IV SCH ×2 (04:01→15:46)
[2016-11-26 06:11] LABS: MEAN CELL VOLUME 81.7 fL (80-100); MEAN CORPUSCULAR HEMOGLOBIN 27.8 pg (25-34); MEAN CORPUSCULAR HGB CONC 34.1 g/dl (32-36); MEAN PLATELET VOLUME 9.5 fL (7.4-10.4); PLATELET COUNT 136 K/uL (130-400); RED BLOOD COUNT 4.53 M/uL (4.2-5.4); WHITE BLOOD COUNT 7.22 K/uL (4.8-10.8)
[2016-11-26 06:42] LABS: COMPLETE YES; LYMPH ABS # 0.38 K/uL (1.2-3.4); LYMPHOCYTE % 5.2 %; META ABS # 0.38 K/uL (0-0); METAMYELOCYTE % 5.2 %; MYELOCYTE % 0.9 %; NEUTROPHILS % 85.2 %
[2016-11-26 07:00] LABS: BUN/CREATININE RATIO 9.7 (10-20); CALCIUM 7.2 mg/dl (8.5-10.1); CREATININE 0.64 mg/dl (0.60-1.20)
[2016-11-26] MEDS ORDERED: POTASSIUM CHLORIDE 10 MEQ TABCR PO SCH (08:00)
[2016-11-26] MEDS: SODIUM CHLOR 0.45% + 20MEQ KCL 1,000 ML IV SCH ×2 (08:32→19:45)
[2016-11-26] MEDS: CLOTRIMAZOLE 10 MG TROCHE MT SCH ×4 (08:33→19:45)
[2016-11-26] MEDS: CYANOCOBALAMIN 500 MCG TAB (VIT B-12) PO SCH (08:33)
[2016-11-26] MEDS: SPIRONOLACTONE 25 MG TAB PO SCH ×2 (08:34→08:39)
[2016-11-26] MEDS: LACTULOSE SYRUP 30 GM/45 ML UDP PO SCH ×2 (08:35→19:46)
[2016-11-26] MEDS: BOOST VANILLA PO SCH ×6 (08:36→19:46)
--- NOTE | 2016-11-26 08:37 | Progress Note ---
Subjective Date of Service: November 26, 2016. Subjective pt is smiling and has little pain, her pleurex site is less reddened according to her daughter, has some wbc seen on fluid analysis and will await culture. through daughter translating pt has little pain, did tolerate exam without much discomfort, daughter is concerned about PET scan scheduled for 11/27 and pt may need to be discharged prior to time for PET scan as they cannot be done as inpt , additionally the daughter wants to be updated on cancers response to chemo vs progression. Problem List Medical Problems: (1) Abdominal pain Status: Acute (2) Abdominal pain Status: Acute (3) Metastatic cancer Status: Acute (4) Pneumonia Status: Acute (5) SBP (spontaneous bacterial peritonitis) Status: Acute (6) Sepsis Status: Acute (7) SOB (shortness of breath) Status: Acute (8) UTI (urinary tract infection) Status: Acute (9) UTI (urinary tract infection) Status: Acute Review of Systems Constitutional: + fatigue, + weakness, No chills, No fever Respiratory: No cough, No shortness of breath Cardiac: No chest pain, No edema, No orthopnea Abdomen: + pain, No diarrhea, No nausea, No vomiting Musculoskeletal: No joint pain, No muscle pain, No swelling Female : No dysuria, No urinary frequency Objective Vital Signs Date Time Temp Pulse Resp B/P Pulse Ox O2 Delivery O2 Flow Rate FiO2 11/26/16 07:14 36.4 65 18 121/78 96 Room Air 11/26/16 04:27 36.3 65 19 121/76 94 Room Air 11/26/16 00:00 Room Air 11/25/16 23:33 36.9 81 20 134/87 94 Room Air 11/25/16 21:00 36.8 76 18 136/82 98 Room Air 11/25/16 20:06 Room Air 11/25/16 20:02 36.6 78 14 101/44 99 11/25/16 19:50 78 14 101/44 99 11/25/16 19:01 93/51 11/25/16 19:00 82 22 94 11/25/16 18:31 94/58 11/25/16 18:30 78 22 11/25/16 18:01 92/59 11/25/16 18:00 77 33 11/25/16 17:59 76 16 91/60 11/25/16 16:04 87 11/25/16 16:00 36.6 88 16 127/74 96 Room Air Physical Exam General Appearance: WD/WN, + mild distress Eyes: PERRL, EOMI Neck: supple, no JVD Respiratory/Chest: chest non-tender, lungs clear, normal breath sounds Cardiovascular: regular rate, rhythm, no murmur Abdomen: normal bowel sounds, + distended, + guarding, + tenderness Extremities: no pedal edema, no calf tenderness Neurologic/Psychiatric: alert, oriented x 3 Laboratory Results Last 24 Hours Test 11/25/16 16:20 11/25/16 16:34 11/25/16 17:20 11/26/16 05:55 White Blood Count 5.49 K/uL 7.22 K/uL Red Blood Count 4.62 M/uL 4.53 M/uL Hemoglobin 13.1 g/dL 12.6 g/dL Hematocrit 37.9 % 37.0 % Mean Corpuscular Volume 82.0 fL 81.7 fL Mean Corpuscular Hemoglobin 28.4 pg 27.8 pg Mean Corpuscular Hemoglobin Concent 34.6 g/dl 34.1 g/dl Platelet Count 142 K/uL 136 K/uL Mean Platelet Volume 10.0 fL 9.5 fL RDW Standard Deviation 38.2 fL 38.3 fL RDW Coefficient of Variation 12.8 % 12.9 % Neutrophils % (Manual) 65.3 % 85.2 % Lymphocytes % (Manual) 13.9 % 5.2 % Monocytes % (Manual) 13.0 % 3.5 % Basophils % (Manual) 1.7 % Metamyelocytes % 3.5 % 5.2 % Myelocytes % 2.6 % 0.9 % Neutrophils # (Manual) 3.58 K/uL 6.15 K/uL Total Absolute Neutrophils 3.58 K/uL 6.15 K/uL Lymphocytes # (Manual) 0.76 K/uL 0.38 K/uL Total Absolute Lymphocytes 0.76 K/uL 0.38 K/uL Monocytes # (Manual) 0.71 K/uL 0.25 K/uL Basophils # (Manual) 0.09 K/uL Metamyelocytes # 0.19 K/uL 0.38 K/uL Myelocytes # 0.14 K/uL 0.06 K/uL Toxic Granulation 1+ Polychromasia 1+ Prothrombin Time 10.8 SECONDS Prothromb Time International Ratio 1.0 Activated Partial Thromboplast Time 25.3 SECONDS Partial Thromboplastin Ratio 1.0 Sodium Level 137 mmol/L 139 mmol/L Potassium Level 2.9 mmol/L 4.0 mmol/L Chloride Level 103 mmol/L 107 mmol/L Carbon Dioxide Level 26 mmol/L 25 mmol/L Anion Gap 8.0 mmol/L 7.0 mmol/L Blood Urea Nitrogen 8 mg/dl 6 mg/dl Creatinine 0.69 mg/dl 0.64 mg/dl Est Creatinine Clear Calc Drug Dose 76.3 ml/min 81.1 ml/min Estimated GFR () 99.4 101.9 Estimated GFR (Non- 85.8 87.9 BUN/Creatinine Ratio 11.3 9.7 Random Glucose 128 mg/dl 139 mg/dl Calcium Level 6.9 mg/dl 7.2 mg/dl Magnesium Level 1.9 mg/dl Total Bilirubin 0.3 mg/dl Direct Bilirubin 0.1 mg/dl Aspartate Amino Transf (AST/SGOT) 14 U/L Alanine Aminotransferase (ALT/SGPT) 14 U/L Alkaline Phosphatase 72 U/L Total Creatine Kinase 15 U/L Creatine Kinase MB 1.8 ng/ml Creatine Kinase MB Ratio 12.0 C-Reactive Protein 2.27 mg/dl Total Protein 4.9 gm/dl Albumin 2.0 gm/dl Lipase 106 U/L 25-Hydroxy Vitamin D Total 14.3 ng/ml Bedside Lactic Acid Venous 1.11 mmol/L Urine Color DK YELLOW Urine Appearance CLEAR Urine pH 6.0 Urine Specific [place] 1.027 Urine Protein 1+ Urine Glucose (UA) NEG Urine Ketones TRACE Urine Occult Blood NEG Urine Nitrite NEG Urine Bilirubin NEG Urine Urobilinogen NEG Urine Leukocyte Esterase NEG Urine WBC (Auto) 1-5 /hpf Urine RBC (Auto) 5-10 /hpf Urine Hyaline Casts (Auto) 10-30 /lpf Urine Epithelial Cells (Auto) >30 /lpf Urine Bacteria (Auto) NEG Urine Renal Epithelial Cells /lpf Urine Pathogenic Casts 0-3 GRANULAR CASTS /lpf Test 11/26/16 06:52 Bedside Troponin I 0.000 ng/ml Assessment and Plan 76 F with metastatic gastric cancer with omental carcinomatosis and massive ascites, has indwelling cath, here with concerns for peritonitis Peritonitis, ascites cultured on vancomycin and rocephin, blood and urine cultures also PET is ordered and may need to be honored or rescheduled for this week with help via case management, alternative is to have discharged and readmitted or discharged to home with home health Adrenal suppression maintaining Decadron dvt prevention is lovenox Palliative care, given language barrier not clear the degree of understanding of patient or family regarding end of life issues, consider palliative consult
[2016-11-26] MEDS: DEXAMETHASONE INJ 4 MG in SYRINGE 0 ML IV SCH ×2 (10:45→20:43)
[2016-11-26] MEDS: ENOXAPARIN 40 MG/0.4 ML SYR SQ SCH (10:46)
[2016-11-26] MEDS: CEFTRIAXONE SOD INJ 2,000 MG in DEXTROSE 5% 50ML 50 ML IV SCH (20:42)
[2016-11-27] VITALS (7 sets, daily range): BP systolic 124–151; BP diastolic 76–89; PULSE 60–70; TEMP 36.3–36.7; O2SAT 95–100
[2016-11-27] MEDS ORDERED: VANCOMYCIN TROUGH ONE (03:30)
[2016-11-27] MEDS: VANCOMYCIN INJ 1,300 MG in SODIUM CHLORIDE 0.9% 250ML 250 ML IV SCH (04:08)
[2016-11-27 04:13] LABS: CREATININE 1.4 mg/dl (0.60-1.20)
[2016-11-27] MEDS: SODIUM CHLOR 0.45% + 20MEQ KCL 1,000 ML IV SCH (06:09)
[2016-11-27] MEDS: CLOTRIMAZOLE 10 MG TROCHE MT SCH ×4 (08:40→20:00)
[2016-11-27] MEDS: CYANOCOBALAMIN 500 MCG TAB (VIT B-12) PO SCH (08:40)
[2016-11-27] MEDS: SPIRONOLACTONE 25 MG TAB PO SCH (08:41)
[2016-11-27] MEDS: LACTULOSE SYRUP 30 GM/45 ML UDP PO SCH ×2 (08:41→21:07)
[2016-11-27] MEDS: BOOST VANILLA PO SCH ×6 (08:41→20:00)
--- NOTE | 2016-11-27 10:36 | Oncology Consultation ---
Oncology/Heme Consultation Date of Consultation: November 27, 2016. Attending Physician: Liz Chua MD Reason for Consultation: History of metastatic signet ring gastric carcinoma History of Present Illness Ms. Block is a 76-year-old female. She is [place] and does not speak Frisian. She was admitted yesterday because of weakness and she did have some nausea. Her history in regards to neoplasm are that in early September her abdomen became distended. Fluid was found and needed drainage. She has had the need for recurrent abdominal paracentesis. Peritoneal fluid is involved with adenocarcinoma. A subsequent esophagogastroduodenoscopy would reflect thickened gastric folds that on biopsy also demonstrated adenocarcinoma signet ring type. We had first met her on November 01. Her performance status at that time was graded added ECOG level of 2.0. A Tenckhoff abdominal catheter was placed for the paracentesis and a port was also placed for parenteral therapy. We treated her on one occasion with a combination of Taxotere and 5-FU along with cisplatin. This was done 2 weeks ago. She seemed to tolerate the therapy well only to be admitted yesterday again weakness. Her daughters who are at her bedside do all of her communication. It's clear that her performance status has weakened. A Tenckhoff catheter is in place and it is used at least on an every other day basis to drain anywhere from 500-1 L of fluid. During our conversation the daughter reviewed with me that her mother does not want to pursue further chemotherapy. Is not in any fever or chills. Apparently constipation does not been an issue. The daughters review with me that a major portion of her day is spent in her favorite chair or bed. (ECOG 3-4) now. Past Medical/Surgical History Medical Problems: (1) Abdominal pain Status: Acute (2) Abdominal pain Status: Acute (3) Metastatic cancer Status: Acute (4) Pneumonia Status: Acute (5) SBP (spontaneous bacterial peritonitis) Status: Acute (6) Sepsis Status: Acute (7) SOB (shortness of breath) Status: Acute (8) UTI (urinary tract infection) Status: Acute (9) UTI (urinary tract infection) Status: Acute Family History Cancer Hypertension A sister had probable breast carcinoma Social History Negative for significant smoking or alcohol usage Smoking Status: Never Smoker Drug Use: none Marital Status: Occupation Status: retired Allergies Coded Allergies: No Known Allergies (Unverified , 11/10/16) Home Medications Scheduled Clotrimazole (Mycelex), 10 MG MT QID Cyanocobalamin (B12), 1,000 MCG PO DAILY Dexamethasone (Dexamethasone), 2 TABS PO BID Ergocalciferol (Vitamin D 76896 Unit), 50,000 UNIT PO WK Lactulose (Chronulac), 3 ML PO BID Potassium Chloride (Micro-K Ext Rel), 10 MEQ PO DAILY Spironolactone (Aldactone), 25 MG PO DAILY Scheduled PRN Oxycodone/Acetaminophen 5MG/325MG (Percocet 5MG/325MG), 1 TABLET PO Q4H PRN for Pain Prochlorperazine Maleate (Compazine), 10 MG PO Q6H PRN for Nausea Current Inpatient Medications Current Inpatient Medications Medications (Trade) Dose Ordered Sig/Graciela Route Start Time Stop Time Status Last Admin Dose Admin Miscellaneous 1 ea 1 ea PRN PRN N/A 11/25/16 19:45 11/25/17 19:44 Potassium Chloride/Sodium Chloride (1/2 Nss + 20meq KCl 1000ml) 1,000 ml @ 90 mls/hr Q11H7M IV 11/25/16 21:00 12/25/16 20:59 11/27/16 06:09 90 MLS/HR Clotrimazole (Mycelex 10MG Kailash) 1 kailash QID MT 11/25/16 20:23 12/05/16 20:59 11/27/16 08:40 1 KAILASH Ergocalciferol (Vitamin D Cap) 50,000 interunit Q7D PO 12/02/16 09:00 01/01/17 08:59 Lactulose (Chronulac Syrup) 30 gm BID PO 11/25/16 20:23 12/25/16 20:59 Oxycodone/ Acetaminophen (Percocet 5-325mg Tab) 1 tab Q4H PRN PO 11/25/16 19:45 12/09/16 19:44 Prochlorperazine Maleate (Compazine Tab) 10 mg Q6H PRN PO 11/25/16 19:45 12/25/16 19:44 Spironolactone (Aldactone Tab) 25 mg DAILY PO 11/26/16 08:00 12/26/16 08:59 Cyanocobalamin 1000 mcg 1,000 mcg DAILY PO 11/26/16 08:00 12/26/16 08:59 11/27/16 08:40 1,000 MCG Ceftriaxone Sodium/Dextrose (Rocephin Inj/D5 50ml) 70 ml @ 100 mls/hr Q24H IV 11/25/16 21:00 11/27/16 20:59 11/26/16 20:42 100 MLS/HR Vancomycin HCl (Consult) 1 ea UD PRN N/A 11/25/16 20:30 12/25/16 20:29 Enteral Nutritional Formula (Boost) 1 can TID PO 11/25/16 21:00 12/25/16 20:59 Enoxaparin Sodium 40 mg 40 mg QAM SQ 11/26/16 09:00 12/26/16 08:59 11/26/16 10:46 40 MG Vancomycin HCl 1300 mg/Sodium Chloride 276 ml @ 125 mls/hr Q12H IV 11/26/16 04:00 11/28/16 03:59 11/27/16 04:08 125 MLS/HR Dexamethasone Sodium Phosphate/ Syringe (Decadron Inj/ Syringe) 1 ml @ 1 mls/min Q12H IV 11/25/16 22:00 12/25/16 21:59 11/26/16 20:43 1 MLS/MIN Heparin Sodium (Porcine) (Heparin 100 Unit/ml 5ml Flush) 5 ml PRN PRN IV 11/26/16 00:15 12/26/16 00:14 Review of Systems Constitutional: Negative for weight loss, night sweats, or fever. There has been abdominal discomfort however Eyes: Negative for event change of vision ENT: Negative for epistaxis, nasal discharge, sore throat, or deafness Cardiovascular: Negative for chest pain, palpitations, dizziness, diaphoresis Respiratory: Negative for new shortness of breath,hemoptysis, or purulent cough Gastrointestinal: Negative for diarrhea, hematemesis, melena, nausea, vomiting , or dyspepsia Integumentary (skin): Negative for rash or jaundice discoloration Genitourinary: Negative for urinary frequency, hematuria, or dysuria Neurological: Negative for weakness, seizure activity, headache, or dizziness Lymphatic/Hematologic: Negative for petechiae, bleeding or new adenopathy Musculoskeletal: Negative for new joint or back pain Allergic/Immunologic: Negative for unusual rash or pruritis. Physical Exam Date Time Temp Pulse Resp B/P Pulse Ox O2 Delivery O2 Flow Rate FiO2 11/27/16 08:45 95 Room Air 11/27/16 07:32 36.3 60 18 151/82 95 Room Air 11/27/16 04:43 65 20 137/81 100 Room Air 11/27/16 00:00 Room Air 11/26/16 23:35 36.6 62 20 111/68 96 Room Air 11/26/16 20:00 Room Air 11/26/16 19:36 36.6 61 20 117/76 96 Room Air 11/26/16 16:00 Room Air 11/26/16 14:38 36.4 65 18 132/70 95 Room Air 11/26/16 11:06 36.2 67 18 124/76 94 Room Air Constitutional: vitals are stable. Eyes: Eyes are UZMA EOMI without conjuctival erythema or icterus. ENT: External examination was negative for masses. Neck: Negative for masses or palpable thyromegaly Respiratory: Lung sounds were generally clear bilaterally Cardiovascular: Heart was RRR without significant murmur, gallops aoe rubs Gastrointestinal: No palpable hepatic or splenomegaly. The abdomen was soft with normal bowel sounds. A Tenckhoff catheter is in place Lymphatic system: there was no palpable peripheral lymphadenopathy Musculoskeletal System: The musculoskeletal system seemed concordant with age. Skin: The skin was negative for jaundice. Neurologic exam: The exam was negative for any focal findings. Deep tendon reflexes were equal and symmetrical. Psychiatric exam: Was essentially negative with normal mood and effect. Breast exam: Done with patient permission on November 01 was negative for any masses or axillary adenopathy. Extremities: Negative for edema erythema Laboratory Results Last 24 Hours Test 11/27/16 03:35 Creatinine 1.40 mg/dl Est Creatinine Clear Calc Drug Dose 37.1 ml/min Estimated GFR () 42.8 Estimated GFR (Non- 36.9 Vancomycin Level Trough 25.9 mcg/ml Assessment & Plan Metastatic signet ring gastric carcinoma. She would actually be due for her next dose of chemotherapy which was a triplet program made up of Taxotere cis- [place] and 5-FU. However with her declining performance status and questionable peritonitis we will be able to safely deliver the chemotherapy. In addition and most importantly the family has requested at the patient's request not to receive any further chemotherapy and I believe that that is a very good decision. I suggested at that point then hospice placement. The family was interested in her eventually having a PET scan. We will arrange for that and follow-up in our clinic after the PET scan. I believe palliative care should be consulted however and subsequently after the PET scan in our updated clinic visit we can then make the transition to hospice care.
[2016-11-27] MEDS: DEXAMETHASONE INJ 4 MG in SYRINGE 0 ML IV SCH (10:40)
[2016-11-27] MEDS: ENOXAPARIN 40 MG/0.4 ML SYR SQ SCH (10:42)
--- NOTE | 2016-11-27 15:12 | Hospitalist Progress Note ---
Hospitalist Progress Note Date of Service November 27, 2016. (Laury Alatorre PA-C) Subjective Pt evaluation today including: conversation w/ patient, conversation w/ family , physical exam, chart review, lab review, review of studies, conversation w/ lending consultant, review of inpatient medication list Patient is Panamanian speaking only. Daughter, Kae, is serving as a distillation operator. She currently denies any pain or nausea. She is reportedly having bowel movements. She is tolerating a diet. Denies any feverish symptoms such as chills, sweats or body aches. Additional Comments: 6 system review performed and negative unless otherwise noted (Laury Alatorre PA-C) Objective Vital Signs Date Time Temp Pulse Resp B/P Pulse Ox O2 Delivery O2 Flow Rate FiO2 11/27/16 11:42 36.4 63 20 124/76 96 Room Air 11/27/16 08:45 95 Room Air 11/27/16 07:32 36.3 60 18 151/82 95 Room Air 11/27/16 04:43 65 20 137/81 100 Room Air 11/27/16 00:00 Room Air 11/26/16 23:35 36.6 62 20 111/68 96 Room Air 11/26/16 20:00 Room Air 11/26/16 19:36 36.6 61 20 117/76 96 Room Air 11/26/16 16:00 Room Air (Laury Alatorre PA-C) Physical Exam General Appearance: no apparent distress, + pertinent finding (chronically ill in appearance) Eyes: EOMI Neck: no JVD Respiratory/Chest: lungs clear Cardiovascular: regular rate, rhythm Abdomen: soft, + pertinent finding (firmness to palpation noted in the left upper and epigastric regions. No tenderness elicited. Bowel sounds present, but hypoactive.) Extremities: non-tender, no pedal edema Neurologic/Psychiatric: no motor/sensory deficits Skin: warm/dry (Laury Alatorre PA-C) Laboratory Results 11/27/16 03:35 Test 11/27/16 03:35 Est Creatinine Clear Calc Drug Dose 37.1 ml/min Estimated GFR () 42.8 Estimated GFR (Non- 36.9 Vancomycin Level Trough 25.9 mcg/ml (SEE COMMENT) Last 24 Hours Test 11/27/16 03:35 Creatinine 1.40 mg/dl Est Creatinine Clear Calc Drug Dose 37.1 ml/min Estimated GFR () 42.8 Estimated GFR (Non- 36.9 Vancomycin Level Trough 25.9 mcg/ml (Laury Alatorre PA-C) Assessment and Plan 76 F with metastatic gastric cancer with omental carcinomatosis and massive ascites, has indwelling cath, here with concerns for peritonitis ?peritonitis -blood and peritoneal fluid cx neg to date -continue Rocephin/vanc for now until cultures are finalized Metastatic gastric AdenoCa with carcinomatosis -heme/onc following-->plan is for no more chemo at this time -palliative care consult pending Acute renal insufficiency-? secondary to vanc vs dehydration -give 1 L NS @ 150 (careful, may make ascites worse but drain is in place) -recheck PRP in AM Adrenal suppression -continue Decadron 4 mg IV BID for now (home dose 8 mg po BID) DVT prophylaxis -Lovenox 40 mg subQ daily -TEDS, SCDs CODE STATUS NEEDS TO BE ADDRESSED. Hopefully this will be resolved pending the palliative care consult This chart was completed in part utilizing [employer] Speech Voice Recognition software. Attempts were made to minimize the grammatical errors, random word insertions, pronoun errors and incomplete sentences. Any formal questions or concerns about the content, text or information contained within the body of this dictation should be directly addressed to the provider for clarification. (Laury Alatorre PA-C) Reviewed: Pt Seen/Exam by Me (Liz Chua MD) History Resident Physician Supervision Note: I interviewed and examined the patient. Discussed with WALLACE Alatorre and agree with findings and plan as documented in the note. Any exceptions or clarifications are listed here: Pt comfortable, denies any pain, afebrile. Had long d/w pt and daughter, granddaughter about her condition. Pt does not want to do any further chemo. She wants to be a DNR/DNI at this point. Daughter reports that she herself wants the PET scan to be done to see if the chemo helped in the hopes that she could convince her mother to continue on with chemo in the future. Family is interested in talking to Palliative Care CADASTRAL SURVEYOR at this point. Denies cough, SOB, or CP VSS RRR no mgr CTAB breathing unlabored Abd +BS, mildly distended, catheter in place left side abd with no surrounding erythema or drainage around site, small healing incision infraumbilical region with Dermabond in place, nontender Ext no edema Skin: Right anterior chest wall with port in place without surrounding erythema or induration 76 yo female with metastatic Gastric CA with carcinomatosis and ascites, here with fever and suspected SBP. No other source of infection found except did have possible left lower lobe infiltrate on CXR without any other signs or symptoms of PNA Softball Player doubled indicating KATH and has granular casts on UA suggestive of ATN. -stop Vanco as could be worsening renal fxn, also Rocephin should be adequate coverage for SBP -consult to Palliative Care pending -changed to DNR/DNI as per pt's wishes -continue drainage of ascites every other day -f/u peritoneal fluid cultures, BCxs -check PA/LAT CXR in AM ro r/o PNA -if peritoneal fluid cx still no growth tomorrow, can likely dc abx and dc to home with plans for Palliative care vs Hospice -stop decadron as was only to be given for pre-chemo regimen, is NOT for adrenal insufficiency Documented By: Liz Chua (Liz Chua MD)
[2016-11-27] MEDS ORDERED: SODIUM CHLORIDE 0.9% 1000ML 1,000 ML IV SCH (15:15)
[2016-11-27] MEDS: CEFTRIAXONE SOD INJ 2,000 MG in DEXTROSE 5% 50ML 50 ML IV SCH (21:07)
[2016-11-28 00:12] VITALS: BP 103/58; PULSE 59; TEMP 36.5; O2SAT 96
[2016-11-28 04:59] VITALS: BP 104/68; PULSE 61; TEMP 36.5; O2SAT 97
[2016-11-28 06:19] LABS: BUN/CREATININE RATIO 11.3 (10-20); CALCIUM 7.1 mg/dl (8.5-10.1); CREATININE 1.9 mg/dl (0.60-1.20); POTASSIUM 3.7 mmol/L (3.5-5.1)
[2016-11-28 07:07] VITALS: BP 112/67; PULSE 62; TEMP 36.5; O2SAT 99
--- NOTE | 2016-11-28 07:49 | DIAGNOSTIC IMAGING REPORT ---
CHEST 2 VIEWS ROUTINE CLINICAL HISTORY: f/u left lower lobe parenchymal infiltrate COMPARISON STUDY: Chest radiograph November 25, 2016. FINDINGS: A right internal jugular [id number] is in place. Cardiomediastinal silhouette is normal. There is no pneumothorax or pleural effusion. There is no consolidation to suggest pneumonia. Left lower lobe opacity has resolved. There is no evidence of pulmonary edema. IMPRESSION: No acute cardiopulmonary findings. Resolution of left lower lung airspace opacity. Electronically signed by: Gonzalo Enamorado M.D. 11/28/2016 7:47 AM Dictated Date/Time: 11/28/2016 7:46 AM
[2016-11-28] MEDS: BOOST VANILLA PO SCH ×4 (08:49→13:10)
[2016-11-28] MEDS: LACTULOSE SYRUP 30 GM/45 ML UDP PO SCH (08:50)
[2016-11-28] MEDS: CYANOCOBALAMIN 500 MCG TAB (VIT B-12) PO SCH (08:51)
[2016-11-28] MEDS: ENOXAPARIN 40 MG/0.4 ML SYR SQ SCH (08:53)
[2016-11-28] MEDS: CLOTRIMAZOLE 10 MG TROCHE MT SCH ×2 (08:54→11:20)
--- NOTE | 2016-11-28 10:44 | Palliative Care Consultation ---
Consultation Date of Consultation: November 28, 2016. Requesting Physician: Sabina Correa PA-C Attending Physician: Dr. Chua Reason for Consultation: Goals of care History of Present Illness This 76 year old female patient presented to the ED three days ago with complaints of weakness and generalized achiness/pain. Back in September this patient had spontaneous ascites and subsequently discovered she had gastric cancer. She underwent chemotherapy for two days and became suddenly weakened, painful, and an overall decline in condition. She could no longer have chemo at that point. Now, she's admitted with electrolyte imbalances and dehydration. Had a LLL infiltrate on x-ray, now resolved. Has a peritoneal drainage catheter for the ascites. She is cared for in her apartment by her two daughters, Kae and Luz (for short as I'm unsure of spelling of full name). Patient has no POA , living will, etc. Daughters were overwhelmed with decision making and question further treatment. Palliative care consulted to assist with establishing goals of care. I met with the patient and both of her daughters in room 403. Patient's Bulgarian is limited, speaks Moroccan. She could understand some of what I was saying, and daughter, Kae, was translating. They declined a hvac field service technician. Kae stated, "We understand now, I think, that she can't have chemo any more. We just want her to be comfortable." Patient nodded and agreed. The goal is for home to patient' s apartment with hospice and 24 hour care by daughters and hopefully waiver program caregivers. I went over a POLST form and fully explained in detail what each section meant. POLST as follows: DNR/DNI, comfort measures only, use or limitation of antibiotics when infection occurs with comfort as the goal, trial of IVF if indicated with comfort as the goal, and no feeding tube. Kae Block , daughter, is listed as surrogate on back of POLST. Patient and other daughter were in agreement with everything. Past Medical/Surgical History Medical History: Metastatic gastric cancer with ascites History of uterine cancer Social History Smoking Status: Never Smoker History of Alcohol Use: No Drug Use: none Marital Status: Housing Status: lives with family Occupation Status: retired Review of Systems Constitutional: + weakness Respiratory: No cough, No dyspnea at rest, No shortness of breath Cardiac: No chest pain Abdomen: + nausea (occasional, not at this time), No diarrhea, No vomiting limited ROS due to language barrier Allergies Coded Allergies: No Known Allergies (Unverified , 11/10/16) Medications Current Inpatient Medications Medications (Trade) Dose Ordered Sig/Graciela Route Start Time Stop Time Status Last Admin Dose Admin Miscellaneous (Iv Fluids Completed) 1 ea PRN PRN N/A 11/25/16 19:45 11/25/17 19:44 Clotrimazole (Mycelex 10MG Kailash) 1 kailash QID MT 11/25/16 20:23 12/05/16 20:59 11/27/16 17:50 1 KAILASH Ergocalciferol (Vitamin D Cap) 50,000 interunit Q7D PO 12/02/16 09:00 01/01/17 08:59 Lactulose (Chronulac Syrup) 30 gm BID PO 11/25/16 20:23 12/25/16 20:59 11/27/16 21:07 30 GM Oxycodone/ Acetaminophen (Percocet 5-325mg Tab) 1 tab Q4H PRN PO 11/25/16 19:45 12/09/16 19:44 Prochlorperazine Maleate (Compazine Tab) 10 mg Q6H PRN PO 11/25/16 19:45 12/25/16 19:44 Spironolactone (Aldactone Tab) 25 mg DAILY PO 11/26/16 08:00 12/26/16 08:59 Future Hold Cyanocobalamin 1000 mcg 1,000 mcg DAILY PO 11/26/16 08:00 12/26/16 08:59 11/28/16 08:51 1,000 MCG Ceftriaxone Sodium/Dextrose (Rocephin Inj/D5 50ml) 70 ml @ 100 mls/hr Q24H IV 11/25/16 21:00 11/28/16 23:59 11/27/16 21:07 100 MLS/HR Enteral Nutritional Formula (Boost) 1 can TID PO 11/25/16 21:00 12/25/16 20:59 Enoxaparin Sodium (Lovenox Inj) 40 mg QAM SQ 11/26/16 09:00 12/26/16 08:59 11/28/16 08:53 40 MG Heparin Sodium (Porcine) (Heparin 100 Unit/ml 5ml Flush) 5 ml PRN PRN IV 11/26/16 00:15 12/26/16 00:14 11/28/16 05:37 5 ML Physical Exam Date Time Temp Pulse Resp B/P Pulse Ox O2 Delivery O2 Flow Rate FiO2 11/28/16 07:07 36.5 62 18 112/67 99 Room Air 11/28/16 04:59 36.5 61 20 104/68 97 Room Air 11/28/16 00:12 36.5 59 18 103/58 96 Room Air 11/28/16 00:00 Room Air 11/27/16 20:00 Room Air 11/27/16 18:54 36.7 66 18 131/79 97 Room Air 11/27/16 15:55 95 Room Air 11/27/16 15:34 36.7 70 18 132/89 96 Room Air 11/27/16 11:42 36.4 63 20 124/76 96 Room Air General Appearance: no apparent distress, + obese ENT: hearing grossly normal Neck: supple, no JVD Respiratory: no respiratory distress, no accessory muscle use, + pertinent finding (room air) Cardiovascular: regular rate, rhythm Abdomen: non tender, soft Neurologic/Psychiatric: alert, normal mood/affect Laboratory Results Last 24 Hours Test 11/28/16 05:40 Sodium Level 142 mmol/L Potassium Level 3.7 mmol/L Chloride Level 112 mmol/L Carbon Dioxide Level 24 mmol/L Anion Gap 6.0 mmol/L Blood Urea Nitrogen 21 mg/dl Creatinine 1.90 mg/dl Est Creatinine Clear Calc Drug Dose 27.6 ml/min Estimated GFR () 29.6 Estimated GFR (Non- 25.5 BUN/Creatinine Ratio 11.3 Random Glucose 81 mg/dl Calcium Level 7.1 mg/dl Assessment & Plan Palliative Performance Scale: 40 % Problem list: Weakness Pain- none at this time Metastatic gastric cancer with ascites- peritoneal drainage catheter Hypokalemia Goals of care (Z51.5) Palliative care plan: discussed with patient, two daughters, THEE Benitez. -No plans for further chemotherapy. This was specifically discussed. -Home with hospice. Again, this was discussed in detail and all were in agreement. -POLST completed as follows: DNR/DNI, comfort measures only, use or limitation of antibiotics when infection occurs with comfort as the goal, trial of IVF if indicated with comfort as the goal, and no feeding tube. -Can continue Percocet PRN on discharge, patient has no pain at this time and normally doesn't have much pain at home. Thank you kindly for this consult. Please contact me with any further palliative care needs.
[2016-11-28 11:22] VITALS: BP 109/68; PULSE 64; TEMP 36.7; O2SAT 99
[2016-11-28] MEDS ORDERED: CEPH500C PO (13:52)
--- NOTE | 2016-11-28 14:00 | Discharge Instructions ---
Discharge Instructions Date of Service November 28, 2016. Admission Reason for Admission: Weakness Discharge Discharge Diagnosis / Problem: Weakness, peritonitis Discharge Goals Goal(s): Decrease discomfort, Therapeutic intervention, Specific goals ( determine goals with palliative care) Activity Recommendations Activity Limitations: resume your previous activity (as tolerated) . Instructions / Follow-Up Instructions / Follow-Up You were admitted to the hospital after presenting with worsening weakness and nausea. You were evaluated by oncology in terms of your metastatic cancer. Due to your decline in functional status and extent of your disease, your chemotherapy will be stopped per your request. Since you will no longer be receiving chemotherapy, you no longer need to take the Decadron. A palliative care provider met with you and your family to help determine your goals, and it seems that you are in agreement to be discharged from the hospital with home hospice care. During your hospital stay, there was a concern about a possible infection in the abdomen called peritonitis, due to the fact that there had been an elevated white blood cell count in the peritoneal fluid that was drawn from the belly. You were treated with broad spectrum IV antibiotics in case of infection. The cultures taken from this fluid do show a possible infectious organism. You will be discharge on an oral antibiotic empirically, and you will have to follow up with your primary care provider to follow up on the final results of the cultures. Depending on the final results, your antibiotic may need to be changed to a different agent. During your stay you also developed acute worsening of your kidney function. This is thought to be related to one of the IV antibiotics that you were on, which was then discontinued. This could have also been caused to previous episodes of low blood pressure during your stay that caused injury to the kidneys. You can also follow up on your kidney function with your primary care provider as an outpatient. Medications: *STOP Decadron as you are no longer receiving chemotherapy. *Take Keflex 500 mg by mouth four times a day for 10 days. Please start your first dose today when you get home. *Continue your home medications as prescribed. Follow up: *You have been scheduled to follow up with Dr. Cassidy on December 06 at 8 :00 am. The oncology office can help you set up the PET scan. *Please follow up with your primary care provider in 1 week regarding your hospital stay and to follow up on your cultures and kidney function. Current Hospital Diet Patient's current hospital diet: Regular Diet Discharge Diet Recommended Diet: Regular Diet Pending Studies Studies pending at discharge: yes List of pending studies: Final peritoneal fluid culture Medical Emergencies . Who to Call and When: Medical Emergencies: If at any time you feel your situation is an emergency, please call 911 immediately. . Non-Emergent Contact Non-Emergency issues call your: Primary Care Provider, Oncologist Call Non-Emergent contact if: you have a fever, your pain is not controlled, your pain is worsening, your pain is unusual for you, your pain is concerning you, wound has increased drainage, wound has increased redness, wound has increased pain, you have any medication questions . Past History Medical & Surgical History: (1) Weakness (2) Ascites (3) SBP (spontaneous bacterial peritonitis) . "Provider Documentation" section prepared by Sabina Correa. . VTE Core Measure Inpt VTE Proph given/why not?: Enoxaparin (Lovenox)SQ
--- NOTE | 2016-11-28 14:47 | Discharge Summary ---
Discharge Summary Date of Service November 28, 2016. (Sabina Correa, PAMELA) Discharge Summary Admission Date: November 27, 2016 at 11:08 Discharge Date: November 28, 2016 Discharge Disposition: Home with services (home hospice) Principal Diagnosis: Weakness, SBP Consultations: Oncology--Dr. 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 Continued Medications: Clotrimazole (Mycelex) 10 Mg Tro 10 MG MT QID, ABEL Cyanocobalamin (B12) 1,000 Mcg Tab 1000 MCG PO DAILY Ergocalciferol (Vitamin D 73380 Unit) 50,000 Unit Cap 46441 UNIT PO WK, CAP Lactulose (Chronulac) 10 Gm/15 Ml Syrp 3 ML PO BID Oxycodone/Acetaminophen 5MG/325MG (Percocet 5MG/325MG) Tab 1 TABLET PO Q4H PRN for Pain, TAB PAIN Potassium Chloride (Micro-K Ext Rel) 10 Meq Capcr 10 MEQ PO DAILY, CAP Prochlorperazine Maleate (Compazine) 10 Mg Tab 10 MG PO Q6H PRN for Nausea Spironolactone (Aldactone) 25 Mg Tab 25 MG PO DAILY, TAB Discontinued Medications: Dexamethasone (Dexamethasone) 4 Mg Tab 2 TABS PO BID FOR 3 DAYS PRIOR TO CHEMO. Referrals At Discharge Follow up Referrals: Family Practice Referral - Within 1 Week with Earnest Hussein MD Discharge Exam Patient does not speak Divehi, history obtained through daughter translating. Patient feeling well but does complain of "heaviness" in her abdomen as well as a tightness in her upper abdomen as if a band is around her. These complaints did improve following drainage from her peritoneal catheter while I was in room. The patient is still somewhat weak and fatigued but overall feeling better. She has been having a good appetite and denies pain. Review of Systems: Constitutional: + weakness, + fatigue, No fever, No chills, No sweats Eyes: No worsening of vision, No eye pain, No diplopia ENT: No hearing loss, No sore throat, No trouble swallowing Respiratory: No cough, No wheezing, No shortness of breath Cardiovascular: No chest pain, No claudication, No palpitations Abdomen: + problem reported ("heavy" and tightness), No pain, No nausea, No vomiting Musculoskeletal: No joint pain, No muscle pain, No calf pain Genitourinary - Female: No dysuria, No urinary retention, No hematuria Neurologic: No paralysis, No weakness, No numbness/tingling Integumentary: No rash, No itch, No color change Physical Exam: General Appearance: WD/WN, no apparent distress, + obese Eyes: normal inspection, PERRL, EOMI ENT: normal ENT inspection, hearing grossly normal, pharynx normal Neck: supple, no JVD, trachea midline Respiratory/Chest: lungs clear, normal breath sounds, no respiratory distress Cardiovascular: regular rate, rhythm, no gallop, no murmur Abdomen / GI: normal bowel sounds, non tender, soft, + distended (mild distention but mostly soft), + pertinent finding (catheter in LLQ. Drained 500 cc fluid today) Extremities: normal inspection, no calf tenderness, no pedal edema Neurologic/Psychiatric: alert, normal mood/affect, oriented x 3 Skin: normal color, warm/dry, no rash (Sabina Correa ., PA-C) Hospital Course 76 y/o female with a history metastatic gastric cancer with omental carcinomatosis and massive ascites, has indwelling cath, here with concerns for peritonitis. Peritonitis--stable. Pt feeling better -Admitted to med/surg -Blood cultures no growth to date -Prior to discharge, peritoneal fluid culture did come back positive for gram positive cocci. Will need to follow up with PCP for final cultures, may need to change abx choice -Spoke with pt's staying machine operator, Dr. Corcoran. Will d/c on Keflex 500 mg PO QID x 10 days Metastatic gastric AdenoCa with carcinomatosis--stable -Dr. Cassidy consulted. Pt does not want to continue with chemo, which Dr. Cassidy agrees with. Family does want to pursue outpt PET scan to see if there are any changes -D/C Decadron as no longer receiving chemo -Palliative care consulted. Filled out POLST with daughters. Pt wants to be DNR status and no chemo. Will d/c with home hospice KATH, secondary to possibly vanc vs previous hypotension/dehydration -Creatinine up to 1.4, had been about 0.6 previously -give 1 L NS @ 150 -Creatinine actually up more to 1.9 prior to discharge. Can f/u on this with PCP, although given comfort measures not sure much intervention at this point DVT prophylaxis -Lovenox 40 mg subQ daily -TEDS, SCDs Code Status -Level V, DO NOT RESUSCITATE Total Time Spent: Greater than 30 minutes This includes examination of the patient, discharge planning, medication reconciliation, and communication with other providers. (Sabina Correa ., PAMELA) Discharge Instructions Please refer to the electronic Patient Visit Report (Discharge Instructions) for additional information. (Sabina Correa PA-C) Additional Copies To Earnest Hussein MD Reviewed: Pt Seen/Exam by Me (Liz Chua MD) History Physician Fraud Prevention Analyst Supervision Note: I interviewed and examined the patient. Discussed with WALLACE Correa and agree with findings and plan as documented in the note. Any exceptions or clarifications are listed here: Pt comfortable, denies any pain, afebrile. Had long d/w pt and daughter, granddaughter about her condition again. Continues to want to move towards hospice and this is being arranged by Palliative Care INCLUSION SPECIALIST however they want to wait until after next outpatient f/u visit with Oncology. GPC growing from peritoneal cultures. Is clinically improved. VSS RRR no mgr CTAB breathing unlabored Abd +BS, mildly distended, catheter in place left side abd with no surrounding erythema or drainage around site, small healing incision infraumbilical region with Dermabond in place, nontender Ext no edema Skin: Right anterior chest wall with port in place without surrounding erythema or induration 76 yo female with metastatic Gastric CA with carcinomatosis and ascites, here with fever and suspected SBP. No other source of infection found except did have possible left lower lobe infiltrate on CXR without any other signs or symptoms of PNA--> repeat CXR negative for PNA. GPC on peritoneal fluid. Had to stop Vanc for KATH, continued Rocephin. Will switch to Keflex for 10 day course and depending on ultimate decision to move towards hospice or not in the next week will determine if she will need more aggressive treatment should her SBP symptoms return. PCP will need to f/u on final peritoneal fluid cultures. Hemmer Automatic doubled indicating KATH and has granular casts on UA suggestive of ATN. -stopped Vanco as could be worsening renal fxn, also Rocephin should be adequate coverage for SBP -changed to DNR/DNI as per pt's wishes -continue drainage of ascites every other day at home -f/u peritoneal fluid cultures, BCxs as outpatient -stop decadron as was only to be given for pre-chemo regimen, is NOT for adrenal insufficiency Documented By: Liz Chua (Liz Chua MD)
[2016-11-28 15:49] VITALS: BP 109/68; PULSE 64; TEMP 36.7; O2SAT 99
[2016-11-28] MEDS ORDERED: DOCUSATE SODIUM 100 MG CAP PO SCH (20:00)
[2016-12-02] MEDS ORDERED: ERGOCALCIFEROL 50,000 INTER.UNIT CAP PO SCH (09:00)
== END 2016-11-28 16:45 | disposition home health service (06) | DRG 371 ==
LOC: ENRESERVDT → ENRESERVTM → EDBD 15:54 → C.EDB 16:00 → C.4E 19:10 → EDBEDREQSVC 19:36 → OBSVTOIN 11-27 11:08
PROVIDERS: ADMIT Family Medicine; ATTEND Family Medicine
DX: K65.2 Spontaneous bacterial peritonitis (principal); N17.0 Acute kidney failure with tubular necrosis; C16.9 Malignant neoplasm of stomach, unspecified; R18.8 Other ascites; E44.0 Moderate protein-calorie malnutrition; C78.6 Secondary malignant neoplasm of retroperitoneum and peritoneum; E27.40 Unspecified adrenocortical insufficiency; B96.89 Other specified bacterial agents as the cause of diseases classified elsewhere; T36.8X5A Adverse effect of other systemic antibiotics, initial encounter; E83.51 Hypocalcemia; E87.6 Hypokalemia; E86.0 Dehydration; E66.9 Obesity, unspecified; Z51.81 Encounter for therapeutic drug level monitoring; Z79.899 Other long term (current) drug therapy; Z79.52 Long term (current) use of systemic steroids; Z66 Do not resuscitate; Z68.33 Body mass index [BMI] 33.0-33.9, adult; Z85.42 Personal history of malignant neoplasm of other parts of uterus; Z82.49 Family history of ischemic heart disease and other diseases of the circulatory system; Z80.3 Family history of malignant neoplasm of breast

== ENCOUNTER → 2016-12-06 | Outpatient (CLI) | payer OTHER ==
[~2016-12-06] MED LIST changes: +CEPH500C PO; +CLOT10TR2 MT; -DIPH-437 PO; +LACT10SO17 PO; +POTA10CA28 PO; +PROC1TAB5 PO; -SNK PO; +SPIR25TA PO
--- NOTE | 2016-12-06 10:39 | DIAGNOSTIC IMAGING REPORT ---
BILATERAL LOWER EXTREMITY VENOUS DOPPLER CLINICAL HISTORY: Bilateral leg pain COMPARISON STUDY: No previous studies for comparison. TECHNIQUE: Sonography of the deep venous system of the bilateral lower extremities was performed. Compression and augmentation were evaluated. FINDINGS: The bilateral common femoral, superficial femoral and popliteal veins were compressible. Augmentation was normal. Flow was shown within the deep calf vessels. IMPRESSION: No evidence of deep venous thrombus within the bilateral lower extremities. Electronically signed by: Gonzalo Enamorado M.D. 12/06/2016 10:38 AM Dictated Date/Time: 12/06/2016 10:37 AM
--- NOTE | 2016-12-15 10:46 | CODING QUERY MEDICAL NECESSITY ---
SUPPORTING DIAGNOSIS NEEDED Dr. Cassidy, A supporting diagnosis is required for the test/procedure performed on this patient in order for us to be reimbursed by the patient's insurance. Please provide a supporting diagnosis for the following test/procedure listed below next to the test name along with your signature. *If there is no additional diagnosis for this patient that would support the following test/procedure please document that below next to the test/procedure. Test(s)/Procedure(s) that require a supporting diagnosis: * ([id number]) VENOUS DOPPLER LOWER EXT BILAT DIAGNOSIS: DATE OF SERVICE: 12/06/16 Provider Signature: Date: Thank you Bert Willis [facility] Information Management Once completed, please kindly fax back to [phone] For questions please call [phone]
== END | disposition home or self-care (01) ==
LOC: C.ULTR 10:09
PROVIDERS: ATTEND Internal Medicine Hematology & Oncology
DX: C16.6 Malignant neoplasm of greater curvature of stomach, unspecified (principal)